=== PATIENT | male | born 1955 | race Hispanic/Latino ===

== ENCOUNTER 2022-11-20 01:16 | Emergency (ER) | payer MEDICARE ==
--- OUTSIDE RECORDS SUMMARY | 2022-11-20 01:29 | XMS REPORT | Continuity of Care Document ---
:1955 Author Organization [facility] t Address [address] [place] [address] Care Team Providers Name Role Phone Ann Roth MD Primary Care Physician VERONIQUE RIVAS Attending Clinician Unavailable ANN ROTH Attending Clinician Unavailable ANN ROTH Attending Clinician Unavailable Veronique Rivas PA-C Attending Clinician Doctor Unassigned, Gueydan Attending Clinician Unavailable KATYA WAY Attending Clinician Unavailable IVY_Sherrie Attending Clinician Unavailable Lab, Ang - Db Attending Clinician Unavailable Katya Lowry Attending Clinician Jah Quintanilla MD Attending Clinician Boni HERNANDEZ, Chirag Dixon Attending Clinician MIRNA KLEIN Attending Clinician Unavailable Mirna Klein MD Attending Clinician Pcp-Lab Attending Clinician Unavailable CHIRAG PLATA Attending Clinician Unavailable Rhoda Mata Attending Clinician Unavailable Emmy Mike MD Attending Clinician Therapy, [facility] Covid Infusion Attending Clinician Unavailable Pablo Dale MD Attending Clinician PABLO DALE Attending Clinician Unavailable Provider, [facility] Attending Clinician Unavailable Viet POULTRY TENDER, Shelly Attending Clinician SHELLY BOWSER Attending Clinician Unavailable HEBERT DAS Attending Clinician Unavailable Nurse, [facility] Pob Immunization Attending Clinician Unavailable Hebert Das DO Attending Clinician 2, [facility] Lab Attending Clinician Unavailable Lab, [facility] Fam Pob I Attending Clinician Unavailable EMMY MIKE Attending Clinician Unavailable YENY HODGE Attending Clinician Unavailable Kena Alvarenga MD Attending Clinician Unavailable Rigo Dallas MD Attending Clinician Nadia Clark Attending Clinician NADIA BRIZUELA Attending Clinician Unavailable JAH QUINTANILLA Attending Clinician Unavailable Stacia Washburn Attending Clinician Unavailable [facility], [facility] Sleep Lab Attending Clinician Unavailable Kaela Llanos Attending Clinician Tang Bernstein Danique Attending Clinician Unavailable VERONIQUE RIVAS Admitting Clinician Unavailable Krunal Admitting Clinician Unavailable CHIRAG PLATA Admitting Clinician Unavailable Rhoda Mata Admitting Clinician Unavailable Tang Bernstein Danique Admitting Clinician Unavailable Payers Payer Name Policy Type Policy Number Effective Date Expiration Date S malka RODRIGUEZ/WINSTON JOHN [id number] 2020 ADV CHOICE PPO 00:00:00 [facility] [id number] 2022 (MEDICARE 00:00:00 REPLACEMENT HMO) MEDICARE PART A \\T\\ [id number] 2008 B 00:00:00 PHYSICIAN TAMIKA [id number] 2020 00:00:00 [facility] [id number] Problems Condition Condition Condition Status Onset Resolution Last Treating Co mments Source Name Details Category Date Date Treatment Clinician Date Vitamin D Vitamin D Disease Active Uni vers deficiency deficiency 2-15 it y of 00:00: [place] 00 Medical Branch Hypomagnes Hypomagnes Disease Active U nivers emia emia 5-05 ity of 00:00: [place] [facility] Arthritis Arthritis Disease Active Uni vers of lumbar of lumbar 1-14 ity of spine spine 00:00: [place] 00 Medical Branch DDD DDD Disease Active Univers (degenerat (degenerat 1-14 it y of karan disc karan disc 00:00: [place] disease), disease), 00 Medi guido lumbar lumbar Branch Gastroesop Gastroesop Disease Active U nivers hageal hageal 9-04 ity of reflux reflux 00:00: [place] disease disease 00 Medical with with Branch esophagiti esophagiti s s Severe Severe Disease Active Univers obstructiv obstructiv 8-28 it y of e sleep e sleep 00:00: [place] apnea apnea 00 Medical Branch CKD CKD Disease Active Univers (chronic (chronic 8-21 ity of kidney kidney 00:00: [place] disease) disease) 00 Medica l Branch Acute on Acute on Disease Active Unive rs chronic chronic 8-21 ity of renal renal 00:00: [place] insufficie insufficie 00 Va dical ncy ncy Branch COPD COPD Disease Active Univers (chronic (chronic 8-19 ity of obstructiv obstructiv [place] e e 00 Medical pulmonary pulmonary Bran ch disease) disease) Cellulitis Cellulitis Disease Active U nivers 6-27 ity of 00:00: [place] 00 Medical Branch Swelling Swelling Disease Active Unive rs of both of both 6-26 ity of lower lower 00:00: [place] extremitie extremitie 00 Me dical s s Branch Obesity Obesity Disease Active Univers (BMI (BMI 6-26 ity of 30-39.9) 30-39.9) 00:00: [place] 00 Medical Branch Chronic Chronic Disease Active Univers diastolic diastolic 6-15 ity of heart heart 00:00: [place] failure failure 00 Medical Branch Coronary Coronary Disease Active Unive rs artery artery 6-15 ity of disease disease 00:00: [place] involving involving 00 Medi gu[place] Branch coronary coronary artery of artery of [place] heart heart without without angina angina pectoris pectoris Coronary Coronary Disease Active Overview: Un jan atheroscle atheroscle 6-15 Formattin ity of olivier aguayo 00:00: g of this [place] 00 note Medical might be Branch different from the original. s/p stents 2000 Dyslipidem Dyslipidem Disease Active U denae ia ia 6-15 ity of 00:00: [place] 00 Medical Branch Chronic Chronic Disease Active Univers anticoagul anticoagul 6-15 it y of ation ation 00:00: [place] 00 Medical Branch History of History of Disease Active U denae coronary coronary 6-15 ity of artery artery 00:00: [place] stent stent 00 Medical placement placement Bran ch PAF PAF Disease Active Univers (paroxysma (paroxysma 6-15 it y of l atrial l atrial 00:00: [place] fibrillati fibrillati 00 Me dical on) on) Branch Hydrops of Hydrops of Disease Active U denae gallbladde gallbladde 6-14 it y of r r 00:00: [place] 00 Medical Branch SIRS SIRS Disease Active Univers (systemic (systemic 6-14 ity of inflammato inflammato 00:00[place] ry ry 00 Medical response response Branch syndrome) syndrome) Anticoagul Anticoagul Disease Active U denae ated ated 3-14 ity of 00:00: [place] 00 Medical Branch Acute Acute Disease Active Univers exacerbati exacerbati 3-17 it y of on of CHF on of CHF 00:[place] (congestiv (congestiv 00 Me dical e heart e heart Branch failure) failure) Atrial Atrial Disease Active 2016-05 Univers fibrillati fibrillati 2-28 it y of on with on with 00:00: [place] RVR RVR 00 Medical Branch Therapeuti Therapeuti Disease Active 2016-05 U denae c drug c drug 1-22 ity of monitoring monitoring 00:00: [place] Gammopathy Gammopathy Disease Active 2016-05 U denae with with 1-22 ity of multiple M multiple M 00:00[place] spikes spikes 00 Medical Branch Chronic Chronic Disease Active 2016-05 Univers pain pain 1-22 ity of syndrome syndrome 00:00: [place] 00 Medical Branch Immunizati Immunizati Disease Active U nivers on on 12-07 ity of counseling counseling 00:00[place] At risk At risk Disease Active Univers for bone for bone 5-24 ity of density density 00:00: [place] loss loss 00 Medical Branch 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 Patient refuses GI/Gen Surg f/u. Helicobact Helicobact Disease Active U nivers er pylori er pylori 4-12 ity of (H. (H. 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 obstructio obstructio Patient n, n, refuses unspecifie unspecifie Gen Surg d d follow-up cholecysti cholecysti . tis acuity tis acuity Rheumatoid Rheumatoid Disease Active U nivers arthritis: arthritis: 3-28 it y of RF 637, RF 637, 00:00: [place] CCP 198, CCP 198, 00 Medica l ESR ESR Branch 53(08/2016) 53(08/2016) Allergic Allergic Disease Active Unive rs rhinitis, rhinitis, 3-08 ity of unspecifie unspecifie 00:00[place] d allergic d allergic 00 Me dical rhinitis rhinitis Branch trigger, trigger, unspecifie unspecifie d rhinitis d rhinitis seasonalit seasonalit y y Venous Venous Disease Active Univers stasis stasis 3-08 ity of dermatitis dermatitis 00:00[place] of both of both 00 Medical lower lower Branch extremitie extremitie s s Bilateral Bilateral Disease Active Overview: Univers lower lower 3-08 Formattin ity of extremity extremity 00:00: g of this [place] edema edema 00 note Medical might be Branch different from the original. declines Vascular surgery Hypothyroi Hypothyroi Disease Active Overview : Univers dism dism 5-13 Formattin ity of 00:00: g of this [place] 00 note Medical might be Branch different from the original. 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 Hyperlipid Hyperlipid Disease Active U nivers emia emia ity of [facility] Essential Essential Disease Active Uni vers hypertensi hypertensi it y of on on [facility] Myocardial Myocardial Disease Active U nivers infarction infarction it y of 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 Social History Social Habit Start Date Stop Date Quantity Comments Source History of Current smoker University of tobacco use [facility] Alcohol intake 2022-08-13 2022-08-13 Current University of 00:00:00 00:00:00 non-drinker of [facility] alcohol (finding) Branch Exposure to 2022-06-11 2022-06-21 Not sure University SARS-CoV-2 00:00:00 07:45:00 [place] Medical (event) Branch Tobacco use and 2022-01-06 2022-01-06 Smokeless tobacco Un iversity of exposure 00:00:00 00:00:[address] [facility] Tobacco Comment 2022-01-06 2022-01-06 quit >15 years Unive rsity of 00:00:00 00:00:[address] [facility] Sex [birth year] Universit y of 00:00:00 00:00:00 [facility] Smoking Status Start Date Stop Date Source Ex-smoker 2022-01-06 00:00:00 2022-01-06 00:00:00 [facility] of [facility] Medications Ordered Filled Start Stop Current Ordering Indication Dosage Frequency Signature Comments Components Source Medication Medication Date Date Medication? Clinician (SIG) Name Name metFORMIN Yes [id number] 500mg Take 1 U nivers 500 mg 5-15 tablet by ity of tablet 00:00: mouth 2 00 (two) Medical times Branch daily with meals. hydrOXYchlo Yes [id number] 400mg Take 2 Univers roQUINE 200 3-31 tablets by it y of mg tablet 00:00: mouth [place] 00 daily. Medical Branch predniSONE 2022- Yes [id number] 5mg Take 1 Univers 5 mg tablet 3-31 tablet by ity of 00:00: mouth [place] 00 daily. Medical Branch hydrOXYchlo Yes [id number] 400mg Take 2 Univers roQUINE 200 3-31 tablets by it y of mg tablet 00:00: mouth [place] 00 daily. Medical Branch predniSONE 2022-0 Yes [id number] 5mg Take 1 Univers 5 mg tablet 3-31 tablet by ity of 00:00: mouth [place] 00 daily. Medical Branch hydrOXYchlo Yes [id number] 400mg Take 2 Univers roQUINE 200 3-31 tablets by it y of mg tablet 00:00: mouth [place] 00 daily. Medical Branch predniSONE 2022- Yes [id number] 5mg Take 1 Univers 5 mg tablet 3-31 tablet by ity of 00:00: mouth [place] 00 daily. Medical Branch hydrOXYchlo 3-0 Yes [id number] 400mg Take 2 Univers roQUINE 200 3-31 tablets by it y of mg tablet 00:00: mouth [place] 00 daily. Medical Branch predniSONE 3-0 Yes [id number] 5mg Take 1 Univers 5 mg tablet 3-31 tablet by ity of 00:00: mouth [place] 00 daily. Medical Branch hydrOXYchlo 3-0 Yes [id number] 400mg Take 2 Univers roQUINE 200 3-31 tablets by it y of mg tablet 00:00: mouth [place] 00 daily. Medical Branch predniSONE 3-0 Yes [id number] 5mg Take 1 Univers 5 mg tablet 3-31 tablet by ity of 00:00: mouth [place] 00 daily. Medical Branch hydrOXYchlo 3-0 Yes [id number] 400mg Take 2 Univers roQUINE 200 3-31 tablets by it y of mg tablet 00:00: mouth [place] 00 daily. Medical Branch predniSONE 3-0 Yes [id number] 5mg Take 1 Univers 5 mg tablet 3-31 tablet by ity of 00:00: mouth [place] 00 daily. Medical Branch hydrOXYchlo 3-0 Yes [id number] 400mg Take 2 Univers roQUINE 200 3-31 tablets by it y of mg tablet 00:00: mouth [place] 00 daily. Medical Branch predniSONE 3-0 Yes [id number] 5mg Take 1 Univers 5 mg tablet 3-31 tablet by ity of 00:00: mouth [place] 00 daily. Medical Branch hydrOXYchlo 3-0 Yes [id number] 400mg Take 2 Univers roQUINE 200 3-31 tablets by it y of mg tablet 00:00: mouth [place] 00 daily. Medical Branch predniSONE 3-0 Yes [id number] 5mg Take 1 Univers 5 mg tablet 3-31 tablet by ity of 00:00: mouth [place] 00 daily. Medical Branch levothyroxi 3-0 Yes [id number] 200ug Take 1 Univers ne 200 mcg 2-07 tablet by ity of tablet 00:00: mouth [place] 00 every Medical morning. Branch levothyroxi 2022-0 Yes [id number] 75ug Take 1 Univers ne 75 mcg 2-07 tablet by ity o f tablet 00:00: mouth [place] 00 every Medical morning. Branch levothyroxi 2022-0 Yes [id number] 200ug Take 1 Univers ne 200 mcg 2-07 tablet by ity of tablet 00:00: mouth [place] 00 every Medical morning. Branch levothyroxi 2022-0 Yes [id number] 75ug Take 1 Univers ne 75 mcg 2-07 tablet by ity o f tablet 00:00: mouth [place] 00 every Medical morning. Branch levothyroxi 2022-0 Yes [id number] 200ug Take 1 Univers ne 200 mcg 2-07 tablet by ity of tablet 00:00: mouth [place] 00 every Medical morning. Branch levothyroxi 2022-0 Yes [id number] 75ug Take 1 Univers ne 75 mcg 2-07 tablet by ity o f tablet 00:00: mouth [place] 00 every Medical morning. Branch levothyroxi 2022-0 Yes [id number] 200ug Take 1 Univers ne 200 mcg 2-07 tablet by ity of tablet 00:00: mouth [place] 00 every Medical morning. Branch levothyroxi 2022-0 Yes [id number] 75ug Take 1 Univers ne 75 mcg 2-07 tablet by ity o f tablet 00:00: mouth [place] 00 every Medical morning. Branch levothyroxi 2022-0 Yes [id number] 200ug Take 1 Univers ne 200 mcg 2-07 tablet by ity of tablet 00:00: mouth [place] 00 every Medical morning. Branch levothyroxi 2022-0 Yes [id number] 75ug Take 1 Univers ne 75 mcg 2-07 tablet by ity o f tablet 00:00: mouth [place] 00 every Medical morning. Branch levothyroxi 2022-0 Yes [id number] 200ug Take 1 Univers ne 200 mcg 2-07 tablet by ity of tablet 00:00: mouth [place] 00 every Medical morning. Branch levothyroxi 2022-0 Yes [id number] 75ug Take 1 Univers ne 75 mcg 2-07 tablet by ity o f tablet 00:00: mouth [place] 00 every Medical morning. Branch levothyroxi 2022-0 Yes [id number] 200ug Take 1 Univers ne 200 mcg 2-07 tablet by ity of tablet 00:00: mouth [place] 00 every Medical morning. Branch levothyroxi 2022-0 Yes [id number] 75ug Take 1 Univers ne 75 mcg 2-07 tablet by ity o f tablet 00:00: mouth [place] 00 every Medical morning. Branch levothyroxi 2022-0 Yes [id number] 200ug Take 1 Univers ne 200 mcg 2-07 tablet by ity of tablet 00:00: mouth [place] 00 every Medical morning. Branch levothyroxi 2022-0 Yes [id number] 75ug Take 1 Univers ne 75 mcg 2-07 tablet by ity o f tablet 00:00: mouth [place] 00 every Medical morning. Branch levothyroxi 2022-0 Yes [id number] 200ug Take 1 Univers ne 200 mcg 2-07 tablet by ity of tablet 00:00: mouth [place] 00 every Medical morning. Branch levothyroxi 2022-0 Yes [id number] 75ug Take 1 Univers ne 75 mcg 2-07 tablet by ity o f tablet 00:00: mouth [place] 00 every Medical morning. Branch metFORMIN 2022-0 Yes [id number] 500mg Take 1 U nivers 500 mg 2-06 tablet by ity of tablet 00:00: mouth (two) Medical times Branch daily with meals. metFORMIN 2022-0 Yes [id number] 500mg Take 1 U nivers 500 mg 2-06 tablet by ity of tablet 00:00: mouth (two) Medical times Branch daily with meals. metFORMIN 2022-0 Yes [id number] 500mg Take 1 U nivers 500 mg 2-06 tablet by ity of tablet 00:00: mouth (two) Medical times Branch daily with meals. metFORMIN 2022-0 Yes [id number] 500mg Take 1 U nivers 500 mg 2-06 tablet by ity of tablet 00:00: mouth (two) Medical times Branch daily with meals. metFORMIN 2022-0 Yes [id number] 500mg Take 1 U nivers 500 mg 2-06 tablet by ity of tablet 00:00: mouth (two) Medical times Branch daily with meals. metFORMIN 2022-0 Yes [id number] 500mg Take 1 U nivers 500 mg 2-06 tablet by ity of tablet 00:00: mouth (two) Medical times Branch daily with meals. metFORMIN 2022-0 Yes [id number] 500mg Take 1 U nivers 500 mg 2-06 tablet by ity of tablet 00:00: mouth (two) Medical times Branch daily with meals. metFORMIN 2022-0 Yes [id number] 500mg Take 1 U nivers 500 mg 2-06 tablet by ity of tablet 00:00: mouth 2 00 (two) Medical times Branch daily with meals. metFORMIN 3-0 Yes [id number] 500mg Take 1 U nivers 500 mg 2-06 tablet by ity of tablet 00:00: mouth 2 00 (two) Medical times Branch daily with meals. metFORMIN 3-0 Yes [id number] 500mg Take 1 U nivers 500 mg 2-06 tablet by ity of tablet 00:00: mouth 2 00 (two) Medical times Branch daily with meals. metFORMIN 3-0 Yes [id number] 500mg Take 1 U nivers 500 mg 2-06 tablet by ity of tablet 00:00: mouth 2 00 (two) Medical times Branch daily with meals. metFORMIN 2022-0 2023- No [id number] 500mg Take 1 Univers 500 mg 2-06 05-15 tablet by ity of tablet 00:00: 00:00 mouth 2 [place] 00 :00 (two) Medical times Branch daily with meals. tamsulosin 2022-0 Yes [id number] .4mg Take 1 Univers 0.4 mg 24 1-11 capsule by ity of hr capsule 00:00: mouth [place] 00 daily. Medical Branch tamsulosin 2022-0 Yes [id number] .4mg Take 1 Univers 0.4 mg 24 1-11 capsule by ity of hr capsule 00:00: mouth [place] 00 daily. Medical Branch tamsulosin 2022-0 Yes [id number] .4mg Take 1 Univers 0.4 mg 24 1-11 capsule by ity of hr capsule 00:00: mouth [place] 00 daily. Medical Branch tamsulosin 2022-0 Yes [id number] .4mg Take 1 Univers 0.4 mg 24 1-11 capsule by ity of hr capsule 00:00: mouth [place] 00 daily. Medical Branch tamsulosin 2022-0 Yes [id number] .4mg Take 1 Univers 0.4 mg 24 1-11 capsule by ity of hr capsule 00:00: mouth [place] 00 daily. Medical Branch tamsulosin 2022-0 Yes [id number] .4mg Take 1 Univers 0.4 mg 24 1-11 capsule by ity of hr capsule 00:00: mouth [place] 00 daily. Medical Branch tamsulosin 2022-0 Yes [id number] .4mg Take 1 Univers 0.4 mg 24 1-11 capsule by ity of hr capsule 00:00: mouth [place] 00 daily. Medical Branch tamsulosin 2022-0 Yes [id number] .4mg Take 1 Univers 0.4 mg 24 1-11 capsule by ity of hr capsule 00:00: mouth [place] 00 daily. Medical Branch tamsulosin 2022-0 Yes [id number] .4mg Take 1 Univers 0.4 mg 24 1-11 capsule by ity of hr capsule 00:00: mouth [place] 00 daily. Medical Branch tamsulosin 2022-0 Yes [id number] .4mg Take 1 Univers 0.4 mg 24 1-11 capsule by ity of hr capsule 00:00: mouth [place] 00 daily. Medical Branch tamsulosin 2022-0 Yes [id number] .4mg Take 1 Univers 0.4 mg 24 1-11 capsule by ity of hr capsule 00:00: mouth [place] 00 daily. Medical Branch tamsulosin 2022-0 Yes [id number] .4mg Take 1 Univers 0.4 mg 24 1-11 capsule by ity of hr capsule 00:00: mouth [place] 00 daily. Medical Branch tamsulosin 2022-0 Yes [id number] .4mg Take 1 Univers 0.4 mg 24 1-11 capsule by ity of hr capsule 00:00: mouth [place] 00 daily. Medical Branch metFORMIN 2021-05 Yes [id number] 500mg Take 1 U nivers 500 mg 2-20 tablet by ity of tablet 00:00: mouth 2 00 (two) Medical times Branch daily with meals. metFORMIN 2021-05 Yes [id number] 500mg Take 1 U nivers 500 mg 2-20 tablet by ity of tablet 00:00: mouth 2 (two) Medical times Branch daily with meals. metFORMIN 2021-05 Yes [id number] 500mg Take 1 U nivers 500 mg 2-20 tablet by ity of tablet 00:00: mouth 2 00 (two) Medical times Branch daily with meals. metFORMIN 2021-05- No [id number] 500mg Take 1 Univers 500 mg 2-20 02-06 tablet by ity of tablet 00:00: 00:00 mouth 2 [place] 00 :00 (two) Medical times Branch daily with meals. metFORMIN 2021-05- No [id number] 500mg Take 1 Univers 500 mg 2-20 - tablet by ity of tablet 00:00: 00:00 mouth 2 [place] 00 :00 (two) Medical times Branch daily with meals. metFORMIN 2021-05- No [id number] 500mg Take 1 Univers 500 mg 2-20 - tablet by ity of tablet 00:00: 00:00 mouth 2 [place] 00 :00 (two) Medical times Branch daily with meals. linaGLIPtin 2021-05 Yes [id number] 5mg Take 1 Univers (TRADJENTA) 2-03 tablet by ity of 5 mg tablet 00:00: mouth [place] 00 daily. Medical Branch linaGLIPtin 2021-05 Yes [id number] 5mg Take 1 Univers (TRADJENTA) 2-03 tablet by ity of 5 mg tablet 00:00: mouth [place] 00 daily. Medical Branch linaGLIPtin 2021-05 Yes [id number] 5mg Take 1 Univers (TRADJENTA) 2-03 tablet by ity of 5 mg tablet 00:00: mouth [place] 00 daily. Medical Branch linaGLIPtin 2021-05 Yes [id number] 5mg Take 1 Univers (TRADJENTA) 2-03 tablet by ity of 5 mg tablet 00:00: mouth [place] 00 daily. Medical Branch linaGLIPtin 2021-05 Yes [id number] 5mg Take 1 Univers (TRADJENTA) 2-03 tablet by ity of 5 mg tablet 00:00: mouth [place] 00 daily. Medical Branch linaGLIPtin 2021-05 Yes [id number] 5mg Take 1 Univers (TRADJENTA) 2-03 tablet by ity of 5 mg tablet 00:00: mouth [place] 00 daily. Medical Branch linaGLIPtin 2021-05 Yes [id number] 5mg Take 1 Univers (TRADJENTA) 2-03 tablet by ity of 5 mg tablet 00:00: mouth [place] 00 daily. Medical Branch linaGLIPtin 2021-05 Yes [id number] 5mg Take 1 Univers (TRADJENTA) 2-03 tablet by ity of 5 mg tablet 00:00: mouth [place] 00 daily. Medical Branch linaGLIPtin 2021-05 Yes [id number] 5mg Take 1 Univers (TRADJENTA) 2-03 tablet by ity of 5 mg tablet 00:00: mouth [place] 00 daily. Medical Branch linaGLIPtin 2021-05 Yes [id number] 5mg Take 1 Univers (TRADJENTA) 2-03 tablet by ity of 5 mg tablet 00:00: mouth [place] 00 daily. Medical Branch linaGLIPtin 2021-05 Yes [id number] 5mg Take 1 Univers (TRADJENTA) 2-03 tablet by ity of 5 mg tablet 00:00: mouth [place] 00 daily. Medical Branch linaGLIPtin 2021-05 Yes [id number] 5mg Take 1 Univers (TRADJENTA) 2-03 tablet by ity of 5 mg tablet 00:00: mouth [place] 00 daily. Medical Branch linaGLIPtin 2021-05 Yes [id number] 5mg Take 1 Univers (TRADJENTA) 2-03 tablet by ity of 5 mg tablet 00:00: mouth [place] 00 daily. Medical Branch linaGLIPtin 2021-05 Yes [id number] 5mg Take 1 Univers (TRADJENTA) 2-03 tablet by ity of 5 mg tablet 00:00: mouth [place] 00 daily. Medical Branch linaGLIPtin 2021-05 Yes [id number] 5mg Take 1 Univers (TRADJENTA) 2-03 tablet by ity of 5 mg tablet 00:00: mouth [place] 00 daily. Medical Branch linaGLIPtin 2021-05 Yes [id number] 5mg Take 1 Univers (TRADJENTA) 2-03 tablet by ity of 5 mg tablet 00:00: mouth [place] 00 daily. Medical Branch linaGLIPtin 2021-05 Yes [id number] 5mg Take 1 Univers (TRADJENTA) 2-03 tablet by ity of 5 mg tablet 00:00: mouth [place] 00 daily. Medical Branch hydrOXYchlo 2021-05 Yes [id number] 300mg Take 1.5 Univers roQUINE 200 1-21 tablets by it y of mg tablet 00:00: mouth [place] 00 daily. Medical Branch levothyroxi 2021-05 Yes [id number] 300ug Take 1 Univers ne 1-21 tablet by ity of (SYNTHROID) 00:00: mouth [place] 300 mcg 00 daily. Medical tablet BRAND Branch MEDICALLY NECESSARY. hydrOXYchlo 2021-05 Yes [id number] 300mg Take 1.5 Univers roQUINE 200 1-21 tablets by it y of mg tablet 00:00: mouth [place] 00 daily. [facility] Branch levothyroxi 2021-05 Yes [id number] 300ug Take 1 [facility] ne 1-21 tablet by ity of (SYNTHROID) 00:00: mouth [place] 300 mcg 00 daily. Medical tablet BRAND Branch MEDICALLY NECESSARY. hydrOXYchlo 2021-05 Yes [id number] 300mg Take 1.5 [facility] roQUINE 200 1-21 tablets by it y of mg tablet 00:00: mouth [place] 00 daily. Medical [facility] levothyroxi 2021-05 Yes [id number] 300ug Take 1 [facility] ne 1-21 tablet by ity of (SYNTHROID) 00:00: mouth [place] 300 mcg 00 daily. Medical tablet BRAND [facility] MEDICALLY NECESSARY. hydrOXYchlo 2021-05 Yes [id number] 300mg Take 1.5 [facility] roQUINE 200 1-21 tablets by it y of mg tablet 00:00: mouth [place] 00 daily. Medical [facility] levothyroxi 2021-05 Yes [id number] 300ug Take 1 [facility] ne 1-21 tablet by ity of (SYNTHROID) 00:00: mouth [place] 300 mcg 00 daily. Medical tablet BRAND Branch MEDICALLY NECESSARY. hydrOXYchlo 2021-05 Yes [id number] 300mg Take 1.5 [facility] roQUINE 200 1-21 tablets by it y of mg tablet 00:00: mouth [place] 00 daily. Medical [facility] levothyroxi 2021-05 Yes [id number] 300ug Take 1 [facility] ne 1-21 tablet by ity of (SYNTHROID) 00:00: mouth [place] 300 mcg 00 daily. Medical tablet BRAND Branch MEDICALLY NECESSARY. hydrOXYchlo 2021-05 Yes [id number] 300mg Take 1.5 [facility] roQUINE 200 1-21 tablets by it y of mg tablet 00:00: mouth [place] 00 daily. Medical Branch levothyroxi 2021-05 Yes [id number] 300ug Take 1 [facility] ne 1-21 tablet by ity of (SYNTHROID) 00:00: mouth [place] 300 mcg 00 daily. Medical tablet BRAND Branch MEDICALLY NECESSARY. hydrOXYchlo 2021-05 Yes [id number] 300mg Take 1.5 [facility] roQUINE 200 1-21 tablets by it y of mg tablet 00:00: mouth [place] 00 daily. Medical [facility] levothyroxi 2021-05 Yes [id number] 300ug Take 1 [facility] ne 1-21 tablet by ity of (SYNTHROID) 00:00: mouth [place] 300 mcg 00 daily. Medical tablet BRAND [facility] MEDICALLY NECESSARY. hydrOXYchlo 2021-05 Yes [id number] 300mg Take 1.5 [facility] roQUINE 200 1-21 tablets by it y of mg tablet 00:00: mouth [place] 00 daily. Medical [facility] levothyroxi 2021-05 Yes [id number] 300ug Take 1 [facility] ne 1-21 tablet by ity of (SYNTHROID) 00:00: mouth [place] 300 mcg 00 daily. Medical tablet BRAND [facility] MEDICALLY NECESSARY. hydrOXYchlo 2021-05 Yes [id number] 300mg Take 1.5 [facility] roQUINE 200 1-21 tablets by it y of mg tablet 00:00: mouth [place] 00 daily. Medical [facility] levothyroxi 2021-05 Yes [id number] 300ug Take 1 [facility] ne 1-21 tablet by ity of (SYNTHROID) 00:00: mouth [place] 300 mcg 00 daily. Medical tablet BRAND [facility] MEDICALLY NECESSARY. hydrOXYchlo 2021-05 Yes [id number] 300mg Take 1.5 [facility] roQUINE 200 1-21 tablets by it y of mg tablet 00:00: mouth [place] 00 daily. Medical [facility] levothyroxi 2021-05 Yes [id number] 300ug Take 1 [facility] ne 1-21 tablet by ity of (SYNTHROID) 00:00: mouth [place] 300 mcg 00 daily. Medical tablet BRAND [facility] MEDICALLY NECESSARY. hydrOXYchlo 2021-05 Yes [id number] 300mg Take 1.5 [facility] roQUINE 200 1-21 tablets by it y of mg tablet 00:00: mouth [place] 00 daily. Medical [facility] levothyroxi 2021-05 Yes [id number] 300ug Take 1 [facility] ne 1-21 tablet by ity of (SYNTHROID) 00:00: mouth [place] 300 mcg 00 daily. Medical tablet BRAND Branch MEDICALLY NECESSARY. hydrOXYchlo 2021-05- No [id number] 300mg Take 1.5 [facility] roQUINE 200 1-21 03-31 tablets by i ty of mg tablet 00:00: 00:00 mouth [place] 00 :00 daily. Medical Branch hydrOXYchlo 2021-05- No [id number] 300mg Take 1.5 [facility] roQUINE 200 1-21 03-31 tablets by i ty of mg tablet 00:00: 00:00 mouth [place] 00 :00 daily. Medical Branch levothyroxi 2021-05- No [id number] 300ug Take 1 [facility] ne 1-21 02-07 tablet by ity of (SYNTHROID) 00:00: 00:00 mouth [place] 300 mcg 00 :00 daily. Medical tablet BRAND [facility] MEDICALLY NECESSARY. vitamin 2021-05- No 500ug Take 500 [facility] ers B-12 05-19 11-04 mcg by ity of (VITAMIN 15:34: 00:00 mouth [place] B-12) 500 31 :00 daily. Medical mcg tablet Branch vitamin 2021-05- No 500ug Take 500 [facility] ers B-12 05-19 11-04 mcg by ity of (VITAMIN 15:34: 00:00 mouth [place] B-12) 500 31 :00 daily. Medical mcg tablet Branch KCL 2021-05 Yes [id number] 20meq Take 1 [facility] rs (KLOR-CON 1-04 tablet by ity o f M20) 20 mEq 00:00: mouth 2 [place] tablet 00 (two) Medical times Branch daily. Blood-Gluco 2021-05 Yes [id number] Check [facility] se Meter 1-04 glucose ity of Kit 00:00: once daily [place] 00 before Medical breakfast; Branch Diagnosis code E11.9 blood sugar 2021-05 Yes [id number] Check [facility] diagnostic 1-04 glucose ity of (BLOOD 00:00: once daily [place] GLUCOSE 00 before Medical TEST) strip breakfast; Br anch Diagnosis code E11.9 amoxicillin 2021-05 Yes [id number] 1{tbl} Take 1 [facility] -clavulanat 1-04 tablet by ity of e 00:00: mouth 2 [place] (AUGMENTIN) 00 (two) Medical 875-125 mg times Branch per tablet daily. [facility] 2021-05 Yes [id number] 20meq Take 1 Un[facility] rs (KLOR-CON 1-04 tablet by ity o f M20) 20 mEq 00:00: mouth 2 [place] tablet 00 (two) Medical times Branch daily. Blood-Gluco 2021-05 Yes [id number] Check [facility] se Meter 1-04 glucose ity of Kit 00:00: once daily [place] 00 before Medical breakfast; Branch Diagnosis code E11.9 blood sugar 2021-05 Yes [id number] Check [facility] diagnostic 1-04 glucose ity of (BLOOD 00:00: once daily [place] GLUCOSE 00 before Medical TEST) strip breakfast; Br anch Diagnosis code E11.9 amoxicillin 2021-05 Yes [id number] 1{tbl} Take 1 [facility] -clavulanat 1-04 tablet by ity of e 00:00: mouth 2 [place] (AUGMENTIN) 00 (two) Medical 875-125 mg times Branch per tablet daily. KCL 2021-05 Yes [id number] 20meq Take 1 [facility] rs (KLOR-CON 1-04 tablet by ity o f M20) 20 mEq 00:00: mouth 2 [place] tablet 00 (two) Medical times Branch daily. Blood-Gluco 2021-05 Yes [id number] Check [facility] se Meter 1-04 glucose ity of Kit 00:00: once daily [place] 00 before Medical breakfast; Branch Diagnosis code E11.9 blood sugar 2021-05 Yes [id number] Check [facility] diagnostic 1-04 glucose ity of (BLOOD 00:00: once daily [place] GLUCOSE 00 before Medical TEST) strip breakfast; Br anch Diagnosis code E11.9 amoxicillin 2021-05 Yes [id number] 1{tbl} Take 1 [facility] -clavulanat 1-04 tablet by ity of e 00:00: mouth 2 [place] (AUGMENTIN) 00 (two) Medical 875-125 mg times Branch per tablet daily. KCL 2021-05 Yes [id number] 20meq Take 1 [facility] rs (KLOR-CON 1-04 tablet by ity o f M20) 20 mEq 00:00: mouth 2 [place] tablet 00 (two) Medical times Branch daily. Blood-Gluco 2021-05 Yes [id number] Check [facility] se Meter 1-04 glucose ity of Kit 00:00: once daily [place] 00 before Medical breakfast; Branch Diagnosis code E11.9 blood sugar 2021-05 Yes [id number] Check [facility] diagnostic 1-04 glucose ity of (BLOOD 00:00: once daily [place] GLUCOSE 00 before Medical TEST) strip breakfast; Br anch Diagnosis code E11.9 amoxicillin 2021-05 Yes [id number] 1{tbl} Take 1 [facility] -clavulanat 1-04 tablet by ity of e 00:00: mouth 2 [place] (AUGMENTIN) 00 (two) Medical 875-125 mg times Branch per tablet daily. KCL 2021-05 Yes [id number] 20meq Take 1 [facility] rs (KLOR-CON 1-04 tablet by ity o f M20) 20 mEq 00:00: mouth 2 [place] tablet 00 (two) Medical times Branch daily. Blood-Gluco 2021-05 Yes [id number] Check [facility] se Meter 1-04 glucose ity of Kit 00:00: once daily [place] 00 before Medical breakfast; Branch Diagnosis code E11.9 blood sugar 2021-05 Yes [id number] Check [facility] diagnostic 1-04 glucose ity of (BLOOD 00:00: once daily [place] GLUCOSE 00 before Medical TEST) strip breakfast; Br anch Diagnosis code E11.9 amoxicillin 2021-05 Yes [id number] 1{tbl} Take 1 [facility] -clavulanat 1-04 tablet by ity of e 00:00: mouth 2 [place] (AUGMENTIN) 00 (two) Medical 875-125 mg times Branch per tablet daily. KCL 2021-05 Yes [id number] 20meq Take 1 [facility] rs (KLOR-CON 1-04 tablet by ity o f M20) 20 mEq 00:00: mouth 2 [place] tablet 00 (two) Medical times Branch daily. Blood-Gluco 2021-05 Yes [id number] Check [facility] se Meter 1-04 glucose ity of Kit 00:00: once daily [place] 00 before Medical breakfast; Branch Diagnosis code E11.9 blood sugar 2021-05 Yes [id number] Check [facility] diagnostic 1-04 glucose ity of (BLOOD 00:00: once daily [place] GLUCOSE 00 before Medical TEST) strip breakfast; Br anch Diagnosis code E11.9 amoxicillin 2021-05 Yes [id number] 1{tbl} Take 1 [facility] -clavulanat 1-04 tablet by ity of e 00:00: mouth 2 [place] (AUGMENTIN) 00 (two) Medical 875-125 mg times Branch per tablet daily. KCL 2021-05 Yes [id number] 20meq Take 1 [facility] rs (KLOR-CON 1-04 tablet by ity o f M20) 20 mEq 00:00: mouth 2 [place] tablet 00 (two) Medical times Branch daily. Blood-Gluco 2021-05 Yes [id number] Check [facility] se Meter 1-04 glucose ity of Kit 00:00: once daily [place] 00 before Medical breakfast; Branch Diagnosis code E11.9 blood sugar 2021-05 Yes [id number] Check [facility] diagnostic 1-04 glucose ity of (BLOOD 00:00: once daily [place] GLUCOSE 00 before Medical TEST) strip breakfast; Br anch Diagnosis code E11.9 amoxicillin 2021-05 Yes [id number] 1{tbl} Take 1 [facility] -clavulanat 1-04 tablet by ity of e 00:00: mouth 2 [place] (AUGMENTIN) 00 (two) Medical 875-125 mg times Branch per tablet daily. KCL 2021-05 Yes [id number] 20meq Take 1 [facility] rs (KLOR-CON 1-04 tablet by ity o f M20) 20 mEq 00:00: mouth 2 [place] tablet 00 (two) Medical times Branch daily. Blood-Gluco 2021-05 Yes [id number] Check [facility] se Meter 1-04 glucose ity of Kit 00:00: once daily [place] 00 before Medical breakfast; Branch Diagnosis code E11.9 blood sugar 2021-05 Yes [id number] Check [facility] diagnostic 1-04 glucose ity of (BLOOD 00:00: once daily [place] GLUCOSE 00 before Medical TEST) strip breakfast; Br anch Diagnosis code E11.9 amoxicillin 2021-05 Yes [id number] 1{tbl} Take 1 [facility] -clavulanat 1-04 tablet by ity of e 00:00: mouth 2 [place] (AUGMENTIN) 00 (two) Medical 875-125 mg times Branch per tablet daily. KCL 2021-05 Yes [id number] 20meq Take 1 [facility] rs (KLOR-CON 1-04 tablet by ity o f M20) 20 mEq 00:00: mouth 2 [place] tablet 00 (two) Medical times Branch daily. Blood-Gluco 2021-05 Yes [id number] Check [facility] se Meter 1-04 glucose ity of Kit 00:00: once daily [place] 00 before Medical breakfast; Branch Diagnosis code E11.9 blood sugar 2021-05 Yes [id number] Check [facility] diagnostic 1-04 glucose ity of (BLOOD 00:00: once daily [place] GLUCOSE 00 before Medical TEST) strip breakfast; Br anch Diagnosis code E11.9 amoxicillin 2021-05 Yes [id number] 1{tbl} Take 1 [facility] -clavulanat 1-04 tablet by ity of e 00:00: mouth 2 [place] (AUGMENTIN) 00 (two) Medical 875-125 mg times Branch per tablet daily. KCL 2021-05 Yes [id number] 20meq Take 1 [facility] rs (KLOR-CON 1-04 tablet by ity o f M20) 20 mEq 00:00: mouth 2 [place] tablet 00 (two) Medical times Branch daily. Blood-Gluco 2021-05 Yes [id number] Check [facility] se Meter 1-04 glucose ity of Kit 00:00: once daily [place] 00 before Medical breakfast; Branch Diagnosis code E11.9 blood sugar 2021-05 Yes [id number] Check [facility] diagnostic 1-04 glucose ity of (BLOOD 00:00: once daily [place] GLUCOSE 00 before Medical TEST) strip breakfast; Br anch Diagnosis code E11.9 amoxicillin 2021-05 Yes [id number] 1{tbl} Take 1 [facility] -clavulanat 1-04 tablet by ity of e 00:00: mouth 2 [place] (AUGMENTIN) 00 (two) Medical 875-125 mg times Branch per tablet daily. KCL 2021-05 Yes [id number] 20meq Take 1 [facility] rs (KLOR-CON 1-04 tablet by ity o f M20) 20 mEq 00:00: mouth 2 [place] tablet 00 (two) Medical times Branch daily. Blood-Gluco 2021-05 Yes [id number] Check [facility] se Meter 1-04 glucose ity of Kit 00:00: once daily [place] 00 before Medical breakfast; Branch Diagnosis code E11.9 blood sugar 2021-05 Yes [id number] Check [facility] diagnostic 1-04 glucose ity of (BLOOD 00:00: once daily [place] GLUCOSE 00 before Medical TEST) strip breakfast; Br anch Diagnosis code E11.9 amoxicillin 2021-05 Yes [id number] 1{tbl} Take 1 [facility] -clavulanat 1-04 tablet by ity of e 00:00: mouth 2 [place] (AUGMENTIN) 00 (two) Medical 875-125 mg times Branch per tablet daily. KCL 2021-05 Yes [id number] 20meq Take 1 [facility] rs (KLOR-CON 1-04 tablet by ity o f M20) 20 mEq 00:00: mouth 2 [place] tablet 00 (two) Medical times Branch daily. Blood-Gluco 2021-05 Yes [id number] Check [facility] se Meter 1-04 glucose ity of Kit 00:00: once daily [place] 00 before Medical breakfast; Branch Diagnosis code E11.9 blood sugar 2021-05 Yes [id number] Check [facility] diagnostic 1-04 glucose ity of (BLOOD 00:00: once daily [place] GLUCOSE 00 before Medical TEST) strip breakfast; Br anch Diagnosis code E11.9 amoxicillin 2021-05 Yes [id number] 1{tbl} Take 1 [facility] -clavulanat 1-04 tablet by ity of e 00:00: mouth 2 [place] (AUGMENTIN) 00 (two) Medical 875-125 mg times Branch per tablet daily. KCL 2021-05 Yes [id number] 20meq Take 1 Un[facility] rs (KLOR-CON 1-04 tablet by ity o f M20) 20 mEq 00:00: mouth 2 [place] tablet 00 (two) Medical times Branch daily. Blood-Gluco 2021-05 Yes [id number] Check [facility] se Meter 1-04 glucose ity of Kit 00:00: once daily [place] 00 before Medical breakfast; Branch Diagnosis code E11.9 blood sugar 2021-05 Yes [id number] Check [facility] diagnostic 1-04 glucose ity of (BLOOD 00:00: once daily [place] GLUCOSE 00 before Medical TEST) strip breakfast; Br anch Diagnosis code E11.9 amoxicillin 2021-05 Yes [id number] 1{tbl} Take 1 [facility] -clavulanat 1-04 tablet by ity of e 00:00: mouth 2 [place] (AUGMENTIN) 00 (two) Medical 875-125 mg times Branch per tablet daily. KCL 2021-05 Yes [id number] 20meq Take 1 Un[facility] rs (KLOR-CON 1-04 tablet by ity o f M20) 20 mEq 00:00: mouth 2 [place] tablet 00 (two) Medical times Branch daily. Blood-Gluco 2021-05 Yes [id number] Check [facility] se Meter 1-04 glucose ity of Kit 00:00: once daily [place] 00 before Medical breakfast; Branch Diagnosis code E11.9 blood sugar 2021-05 Yes [id number] Check [facility] diagnostic 1-04 glucose ity of (BLOOD 00:00: once daily [place] GLUCOSE 00 before Medical TEST) strip breakfast; Br anch Diagnosis code E11.9 amoxicillin 2021-05 Yes [id number] 1{tbl} Take 1 [facility] -clavulanat 1-04 tablet by ity of e 00:00: mouth 2 [place] (AUGMENTIN) 00 (two) Medical 875-125 mg times Branch per tablet daily. KCL 2021-05 Yes [id number] 20meq Take 1 Un[facility] rs (KLOR-CON 1-04 tablet by ity o f M20) 20 mEq 00:00: mouth 2 [place] tablet 00 (two) Medical times Branch daily. Blood-Gluco 2021-05 Yes [id number] Check [facility] se Meter 1-04 glucose ity of Kit 00:00: once daily [place] 00 before Medical breakfast; Branch Diagnosis code E11.9 blood sugar 2021-05 Yes [id number] Check [facility] diagnostic 1-04 glucose ity of (BLOOD 00:00: once daily [place] GLUCOSE 00 before Medical TEST) strip breakfast; Br anch Diagnosis code E11.9 amoxicillin 2021-05 Yes [id number] 1{tbl} Take 1 [facility] -clavulanat 1-04 tablet by ity of e 00:00: mouth 2 [place] (AUGMENTIN) 00 (two) Medical 875-125 mg times Branch per tablet daily. KCL 2021-05 Yes [id number] 20meq Take 1 Un[facility] rs (KLOR-CON 1-04 tablet by ity o f M20) 20 mEq 00:00: mouth 2 [place] tablet 00 (two) Medical times Branch daily. Blood-Gluco 2021-05 Yes [id number] Check [facility] se Meter 1-04 glucose ity of Kit 00:00: once daily [place] 00 before Medical breakfast; Branch Diagnosis code E11.9 blood sugar 2021-05 Yes [id number] Check [facility] diagnostic 1-04 glucose ity of (BLOOD 00:00: once daily [place] GLUCOSE 00 before Medical TEST) strip breakfast; Br anch Diagnosis code E11.9 amoxicillin 2021-05 Yes [id number] 1{tbl} Take 1 [facility] -clavulanat 1-04 tablet by ity of e 00:00: mouth 2 [place] (AUGMENTIN) 00 (two) Medical 875-125 mg times Branch per tablet daily. KCL 2021-05 Yes [id number] 20meq Take 1 [facility] rs (KLOR-CON 1-04 tablet by ity o f M20) 20 mEq 00:00: mouth 2 [place] tablet 00 (two) Medical times Branch daily. Blood-Gluco 2021-05 Yes [id number] Check [facility] se Meter 1-04 glucose ity of Kit 00:00: once daily [place] 00 before Medical breakfast; Branch Diagnosis code E11.9 blood sugar 2021-05 Yes [id number] Check [facility] diagnostic 1-04 glucose ity of (BLOOD 00:00: once daily [place] GLUCOSE 00 before Medical TEST) strip breakfast; Br anch Diagnosis code E11.9 amoxicillin 2021-05 Yes [id number] 1{tbl} Take 1 [facility] -clavulanat 1-04 tablet by ity of e 00:00: mouth 2 [place] (AUGMENTIN) 00 (two) Medical 875-125 mg times Branch per tablet daily. KCL 2021-05 Yes [id number] 20meq Take 1 Un[facility] rs (KLOR-CON 1-04 tablet by ity o f M20) 20 mEq 00:00: mouth 2 [place] tablet 00 (two) Medical times Branch daily. Blood-Gluco 2021-05 Yes [id number] Check [facility] se Meter 1-04 glucose ity of Kit 00:00: once daily [place] 00 before Medical breakfast; Branch Diagnosis code E11.9 blood sugar 2021-05 Yes [id number] Check [facility] diagnostic 1-04 glucose ity of (BLOOD 00:00: once daily [place] GLUCOSE 00 before Medical TEST) strip breakfast; Br anch Diagnosis code E11.9 amoxicillin 2021-05 Yes [id number] 1{tbl} Take 1 [facility] -clavulanat 1-04 tablet by ity of e 00:00: mouth 2 [place] (AUGMENTIN) 00 (two) Medical 875-125 mg times Branch per tablet daily. KCL 2021-05 Yes [id number] 20meq Take 1 [facility] rs (KLOR-CON 1-04 tablet by ity o f M20) 20 mEq 00:00: mouth 2 [place] tablet 00 (two) Medical times Branch daily. Blood-Gluco 2021-05 Yes [id number] Check [facility] se Meter 1-04 glucose ity of Kit 00:00: once daily [place] 00 before Medical breakfast; Branch Diagnosis code E11.9 blood sugar 2021-05 Yes [id number] Check [facility] diagnostic 1-04 glucose ity of (BLOOD 00:00: once daily [place] GLUCOSE 00 before Medical TEST) strip breakfast; Br anch Diagnosis code E11.9 amoxicillin 2021-05 Yes [id number] 1{tbl} Take 1 [facility] -clavulanat 1-04 tablet by ity of e 00:00: mouth 2 [place] (AUGMENTIN) 00 (two) Medical 875-125 mg times Branch per tablet daily. KCL 2021-05 Yes [id number] 20meq Take 1 [facility] rs (KLOR-CON 1-04 tablet by ity o f M20) 20 mEq 00:00: mouth 2 [place] tablet 00 (two) Medical times Branch daily. Blood-Gluco 2021-05 Yes [id number] Check [facility] se Meter 1-04 glucose ity of Kit 00:00: once daily [place] 00 before Medical breakfast; Branch Diagnosis code E11.9 blood sugar 2021-05 Yes [id number] Check [facility] diagnostic 1-04 glucose ity of (BLOOD 00:00: once daily [place] GLUCOSE 00 before Medical TEST) strip breakfast; Br anch Diagnosis code E11.9 amoxicillin 2021-05 Yes [id number] 1{tbl} Take 1 [facility] -clavulanat 1-04 tablet by ity of e 00:00: mouth 2 [place] (AUGMENTIN) 00 (two) Medical 875-125 mg times Branch per tablet daily. KCL 2021-05 Yes [id number] 20meq Take 1 [facility] rs (KLOR-CON 1-04 tablet by ity o f M20) 20 mEq 00:00: mouth 2 [place] tablet 00 (two) Medical times Branch daily. Blood-Gluco 2021-05 Yes [id number] Check [facility] se Meter 1-04 glucose ity of Kit 00:00: once daily [place] 00 before Medical breakfast; Branch Diagnosis code E11.9 blood sugar 2021-05 Yes [id number] Check [facility] diagnostic 1-04 glucose ity of (BLOOD 00:00: once daily [place] GLUCOSE 00 before Medical TEST) strip breakfast; Br anch Diagnosis code E11.9 amoxicillin 2021-05 Yes [id number] 1{tbl} Take 1 [facility] -clavulanat 1-04 tablet by ity of e 00:00: mouth 2 [place] (AUGMENTIN) 00 (two) Medical 875-125 mg times Branch per tablet daily. KCL 2021-05 Yes [id number] 20meq Take 1 [facility] rs (KLOR-CON 1-04 tablet by ity o f M20) 20 mEq 00:00: mouth 2 [place] tablet 00 (two) Medical times Branch daily. Blood-Gluco 2021-05 Yes [id number] Check [facility] se Meter 1-04 glucose ity of Kit 00:00: once daily [place] 00 before Medical breakfast; Branch Diagnosis code E11.9 blood sugar 2021-05 Yes [id number] Check [facility] diagnostic 1-04 glucose ity of (BLOOD 00:00: once daily [place] GLUCOSE 00 before Medical TEST) strip breakfast; Br anch Diagnosis code E11.9 amoxicillin 2021-05 Yes [id number] 1{tbl} Take 1 [facility] -clavulanat 1-04 tablet by ity of e 00:00: mouth 2 [place] (AUGMENTIN) 00 (two) Medical 875-125 mg times Branch per tablet daily. KCL 2021-05 Yes [id number] 20meq Take 1 [facility] rs (KLOR-CON 1-04 tablet by ity o f M20) 20 mEq 00:00: mouth 2 [place] tablet 00 (two) Medical times Branch daily. Blood-Gluco 2021-05 Yes [id number] Check [facility] se Meter 1-04 glucose ity of Kit 00:00: once daily [place] 00 before Medical breakfast; Branch Diagnosis code E11.9 blood sugar 2021-05 Yes [id number] Check [facility] diagnostic 1-04 glucose ity of (BLOOD 00:00: once daily [place] GLUCOSE 00 before Medical TEST) strip breakfast; Br anch Diagnosis code E11.9 amoxicillin 2021-05 Yes [id number] 1{tbl} Take 1 [facility] -clavulanat 1-04 tablet by ity of e 00:00: mouth 2 [place] (AUGMENTIN) 00 (two) Medical 875-125 mg times Branch per tablet daily. predniSONE 2021-05 Yes [id number] 5mg Take 1 [facility] 5 mg tablet 0-27 tablet by ity of 00:00: mouth [place] 00 daily. Medical Branch predniSONE 2021-05 Yes [id number] 5mg Take 1 [facility] 5 mg tablet 0-27 tablet by ity of 00:00: mouth [place] 00 daily. Medical Branch predniSONE 2021-05 Yes [id number] 5mg Take 1 [facility] 5 mg tablet 0-27 tablet by ity of 00:00: mouth [place] 00 daily. Medical Branch predniSONE 2021-05 Yes [id number] 5mg Take 1 [facility] 5 mg tablet 0-27 tablet by ity of 00:00: mouth [place] 00 daily. Medical Branch predniSONE 2021-05 Yes [id number] 5mg Take 1 [facility] 5 mg tablet 0-27 tablet by ity of 00:00: mouth [place] 00 daily. [facility] Branch predniSONE 2021-05 Yes [id number] 5mg Take 1 [facility] 5 mg tablet 0-27 tablet by ity of 00:00: mouth [place] 00 daily. [facility] Branch predniSONE 2021-05 Yes [id number] 5mg Take 1 [facility] 5 mg tablet 0-27 tablet by ity of 00:00: mouth [place] 00 daily. Medical Branch predniSONE 2021-05 Yes [id number] 5mg Take 1 [facility] 5 mg tablet 0-27 tablet by ity of 00:00: mouth [place] 00 daily. Medical Branch predniSONE 2021-05 Yes [id number] 5mg Take 1 [facility] 5 mg tablet 0-27 tablet by ity of 00:00: mouth [place] 00 daily. Medical Branch predniSONE 2021-05 Yes [id number] 5mg Take 1 [facility] 5 mg tablet 0-27 tablet by ity of 00:00: mouth [place] 00 daily. Medical Branch predniSONE 2021-05 Yes [id number] 5mg Take 1 [facility] 5 mg tablet 0-27 tablet by ity of 00:00: mouth [place] 00 daily. Medical Branch predniSONE 2021-05 Yes [id number] 5mg Take 1 [facility] 5 mg tablet 0-27 tablet by ity of 00:00: mouth [place] 00 daily. Medical Branch predniSONE 2021-05 Yes [id number] 5mg Take 1 [facility] 5 mg tablet 0-27 tablet by ity of 00:00: mouth [place] 00 daily. Medical Branch predniSONE 2021-05 Yes [id number] 5mg Take 1 [facility] 5 mg tablet 0-27 tablet by ity of 00:00: mouth [place] 00 daily. Medical Branch predniSONE 2021-05 Yes [id number] 5mg Take 1 [facility] 5 mg tablet 0-27 tablet by ity of 00:00: mouth [place] 00 daily. Medical Branch predniSONE 2021-05 Yes [id number] 5mg Take 1 [facility] 5 mg tablet 0-27 tablet by ity of 00:00: mouth [place] 00 daily. Medical Branch predniSONE 2021-05 Yes [id number] 5mg Take 1 [facility] 5 mg tablet 0-27 tablet by ity of 00:00: mouth [place] 00 daily. Medical Branch predniSONE 2021-05 Yes [id number] 5mg Take 1 [facility] 5 mg tablet 0-27 tablet by ity of 00:00: mouth [place] 00 daily. Medical Branch predniSONE 2021-05- No [id number] 5mg Take 1 [facility] 5 mg tablet 0-27 03-31 tablet by it y of 00:00: 00:00 mouth [place] 00 :00 daily. Medical Branch predniSONE 2021-2022- No [id number] 5mg Take 1 [facility] 5 mg tablet 0-27 -31 tablet by it y of 00:00: 00:00 mouth [place] 00 :00 daily. Medical Branch metFORMIN 2-0 Yes [id number] 500mg Take 1 [facility] 500 mg 7-08 tablet by ity of tablet 00:00: mouth [place] (two) Medical times Branch daily with meals. metFORMIN 2022-0 Yes [id number] 500mg Take 1 [facility] n[facility] 500 mg 7-08 tablet by ity of tablet 00:00: mouth (two) Medical times Branch daily with meals. metFORMIN 2021-0 Yes [id number] 500mg Take 1 [facility] n[facility] 500 mg 7-08 tablet by ity of tablet 00:00: mouth [place] (two) Medical times Branch daily with meals. metFORMIN 2021-0 Yes [id number] 500mg Take 1 [facility] n[facility] 500 mg 7-08 tablet by ity of tablet 00:00: mouth [place] (two) Medical times Branch daily with meals. metFORMIN 2021-0 Yes [id number] 500mg Take 1 [facility] nivers 500 mg 7-08 tablet by ity of tablet 00:00: mouth (two) Medical times Branch daily with meals. metFORMIN 2021-0 Yes [id number] 500mg Take 1 U nivers 500 mg 7-08 tablet by ity of tablet 00:00: mouth [place] (two) Medical times Branch daily with meals. metFORMIN 2021-0 Yes [id number] 500mg Take 1 U nivers 500 mg 7-08 tablet by ity of tablet 00:00: mouth [place] (two) Medical times Branch daily with meals. metFORMIN 2-0 Yes [id number] 500mg Take 1 U nivers 500 mg 7-08 tablet by ity of tablet 00:00: mouth [place] (two) Medical times Branch daily with meals. metFORMIN 2022-0 Yes [id number] 500mg Take 1 U nivers 500 mg 7-08 tablet by ity of tablet 00:00: mouth [place] (two) Medical times Branch daily with meals. metFORMIN 2022-0 Yes [id number] 500mg Take 1 U nivers 500 mg 7-08 tablet by ity of tablet 00:00: mouth [place] (two) Medical times Branch daily with meals. metFORMIN 2022-0 Yes [id number] 500mg Take 1 [facility] nivers 500 mg 7-08 tablet by ity of tablet 00:00: mouth 2 (two) Medical times Branch daily with meals. metFORMIN Yes [id number] 500mg Take 1 [facility] nivers 500 mg 7-08 tablet by ity of tablet 00:00: mouth 2 (two) Medical times Branch daily with meals. metFORMIN 0 Yes [id number] 500mg Take 1 [facility] nivers 500 mg 7-08 tablet by ity of tablet 00:00: mouth 2 [place] (two) Medical times Branch daily with meals. metFORMIN 2021- No [id number] 500mg Take 1 [facility] 500 mg 7-08 12-20 tablet by ity of tablet 00:00: 00:00 mouth 2 [place] 00 :00 (two) Medical times Branch daily with meals. SULFASALAZI Yes [id number] TAKE 2 [facility] [place] 500 mg 5-09 TABLETS BY ity of EC tablet 00:00: MOUTH [place] 00 TWICE A Medical DAY Branch SULFASALAZI 2021-0 Yes [id number] TAKE 2 [facility] [place] 500 mg 5-09 TABLETS BY ity of EC tablet 00:00: MOUTH [place] 00 TWICE A Medical DAY Branch SULFASALAZI 2021-0 Yes [id number] TAKE 2 [facility] [place] 500 mg 5-09 TABLETS BY ity of EC tablet 00:00: MOUTH [place] 00 TWICE A Medical DAY Branch SULFASALAZI 2021-0 Yes [id number] TAKE 2 [facility] [place] 500 mg 5-09 TABLETS BY ity of EC tablet 00:00: MOUTH [place] 00 TWICE A Medical DAY Branch SULFASALAZI 2021-0 Yes [id number] TAKE 2 [facility] [place] 500 mg 5-09 TABLETS BY ity of EC tablet 00:00: MOUTH [place] 00 TWICE A Medical DAY Branch SULFASALAZI 2021-0 2- No [id number] TAKE 2 [facility] NE 500 mg 5-09 11-04 TABLETS BY ity of EC tablet 00:00: 00:00 MOUTH [place] 00 :00 TWICE A Medical DAY Branch SULFASALAZI 2021-0 2022- No [id number] TAKE 2 [facility] NE 500 mg 5-09 11-04 TABLETS BY ity of EC tablet 00:00: 00:00 MOUTH [place] 00 :00 TWICE A Medical DAY Branch predniSONE 2-0 Yes [id number] 5mg Take 1 [facility] 5 mg tablet 4-22 tablet by ity of 00:00: mouth [place] 00 daily. Medical Branch predniSONE 2021-0 Yes [id number] 5mg Take 1 [facility] 5 mg tablet 4-22 tablet by ity of 00:00: mouth [place] 00 daily. [facility] Branch predniSONE 2021-0 2021- No [id number] 5mg Take 1 [facility] 5 mg tablet 4-22 10-27 tablet by it y of 00:00: 00:00 mouth [place] 00 :00 daily. Medical Branch hydrOXYchlo 2021-0 Yes [id number] 300mg Take 1.5 [facility] roQUINE 200 4-19 tablets by it y of mg tablet 00:00: mouth [place] 00 daily. [facility] Branch hydrOXYchlo 2021-0 Yes [id number] 300mg Take 1.5 [facility] roQUINE 200 4-19 tablets by it y of mg tablet 00:00: mouth [place] 00 daily. Medical Branch hydrOXYchlo 2021-0 Yes [id number] 300mg Take 1.5 [facility] roQUINE 200 4-19 tablets by it y of mg tablet 00:00: mouth [place] 00 daily. Medical Branch hydrOXYchlo 2021-0 Yes [id number] 300mg Take 1.5 [facility] roQUINE 200 4-19 tablets by it y of mg tablet 00:00: mouth [place] 00 daily. Medical Branch hydrOXYchlo 2021-0 Yes [id number] 300mg Take 1.5 [facility] roQUINE 200 4-19 tablets by it y of mg tablet 00:00: mouth [place] 00 daily. Medical Branch hydrOXYchlo 2021-0 Yes [id number] 300mg Take 1.5 [facility] roQUINE 200 4-19 tablets by it y of mg tablet 00:00: mouth [place] 00 daily. Medical Branch hydrOXYchlo 2021-0 Yes [id number] 300mg Take 1.5 [facility] roQUINE 200 4-19 tablets by it y of mg tablet 00:00: mouth [place] 00 daily. Medical Branch hydrOXYchlo 2021-0 Yes [id number] 300mg Take 1.5 [facility] roQUINE 200 4-19 tablets by it y of mg tablet 00:00: mouth [place] 00 daily. [facility] Branch hydrOXYchlo 2021-0 Yes [id number] 300mg Take 1.5 [facility] roQUINE 200 4-19 tablets by it y of mg tablet 00:00: mouth [place] 00 daily. [facility] Branch hydrOXYchlo 2021-0 202- No [id number] 300mg Take 1.5 [facility] roQUINE 200 4-19 11-21 tablets by i ty of mg tablet 00:00: 00:00 mouth [place] 00 :00 daily. Medical Branch tamsulosin 0 Yes [id number] .4mg Take 1 [facility] 0.4 mg 24 3-28 capsule by ity of hr capsule 00:00: mouth [place] 00 daily. Medical Branch KCL 2021-0 Yes [id number] 20meq Take 1 Unive rs (KLOR-CON 3-28 tablet by ity o f M20) 20 mEq 00:00: mouth 2 [place] tablet 00 (two) Medical times Branch daily. tamsulosin 0 Yes [id number] .4mg Take 1 [facility] 0.4 mg 24 3-28 capsule by ity of hr capsule 00:00: mouth [place] 00 daily. Medical Branch KCL 0 Yes [id number] 20meq Take 1 [facility] rs (KLOR-CON 3-28 tablet by ity o f M20) 20 mEq 00:00: mouth 2 [place] tablet 00 (two) Medical times Branch daily. tamsulosin Yes [id number] .4mg Take 1 [facility] 0.4 mg 24 3-28 capsule by ity of hr capsule 00:00: mouth [place] 00 daily. Medical Branch KCL 2021-0 Yes [id number] 20meq Take 1 [facility] rs (KLOR-CON 3-28 tablet by ity o f M20) 20 mEq 00:00: mouth 2 [place] tablet 00 (two) Medical times Branch daily. tamsulosin 0 Yes [id number] .4mg Take 1 [facility] 0.4 mg 24 3-28 capsule by ity of hr capsule 00:00: mouth [place] 00 daily. Medical Branch KCL 2021-0 Yes [id number] 20meq Take 1 [facility] rs (KLOR-CON 3-28 tablet by ity o f M20) 20 mEq 00:00: mouth 2 [place] tablet 00 (two) Medical times Branch daily. tamsulosin 0 Yes [id number] .4mg Take 1 [facility] 0.4 mg 24 3-28 capsule by ity of hr capsule 00:00: mouth [place] 00 daily. Medical Branch KCL 2021-0 Yes [id number] 20meq Take 1 [facility] rs (KLOR-CON 3-28 tablet by ity o f M20) 20 mEq 00:00: mouth 2 [place] tablet 00 (two) Medical times Branch daily. tamsulosin 0 Yes [id number] .4mg Take 1 [facility] 0.4 mg 24 3-28 capsule by ity of hr capsule 00:00: mouth [place] 00 daily. Medical Branch tamsulosin 0 Yes [id number] .4mg Take 1 [facility] 0.4 mg 24 3-28 capsule by ity of hr capsule 00:00: mouth [place] 00 daily. Medical Branch tamsulosin Yes [id number] .4mg Take 1 [facility] 0.4 mg 24 3-28 capsule by ity of hr capsule 00:00: mouth [place] 00 daily. Medical Branch tamsulosin 0 Yes [id number] .4mg Take 1 [facility] 0.4 mg 24 3-28 capsule by ity of hr capsule 00:00: mouth [place] 00 daily. Medical Branch tamsulosin 0 Yes [id number] .4mg Take 1 [facility] 0.4 mg 24 3-28 capsule by ity of hr capsule 00:00: mouth [place] 00 daily. Medical Branch tamsulosin 0 Yes [id number] .4mg Take 1 [facility] 0.4 mg 24 3-28 capsule by ity of hr capsule 00:00: mouth [place] 00 daily. Medical Branch tamsulosin Yes [id number] .4mg Take 1 [facility] 0.4 mg 24 3-28 capsule by ity of hr capsule 00:00: mouth [place] 00 daily. Medical Branch tamsulosin 0 Yes [id number] .4mg Take 1 [facility] 0.4 mg 24 3-28 capsule by ity of hr capsule 00:00: mouth [place] 00 daily. Medical Branch tamsulosin 0 Yes [id number] .4mg Take 1 [facility] 0.4 mg 24 3-28 capsule by ity of hr capsule 00:00: mouth [place] 00 daily. Medical Branch tamsulosin 0 2022- No [id number] .4mg Take 1 [facility] 0.4 mg 24 3-28 01-10 capsule by ity of hr capsule 00:00: 16:54 mouth [place] 00 :49 daily. Medical Branch KCL 2021-2021- No [id number] 20meq Take 1 Univ ers (KLOR-CON 3-28 11-04 tablet by ity of M20) 20 mEq 00:00: 00:00 mouth 2 [place] tablet 00 :00 (two) Medical times [place] daily. KCL 0 2021- No [id number] 20meq Take 1 [facility] ers (KLOR-CON 3-28 11-04 tablet by ity of M20) 20 mEq 00:00: 00:00 mouth 2 [place] tablet 00 :00 (two) Medical times [place] daily. triamcinolo 0 Yes [id number] Apply to [facility] ne 3-18 area(s) 2 ity of acetonide 00:00: (two) [place] 0.1 % 00 times Medical ointment daily. Branch triamcinolo 0 Yes [id number] Apply to [facility] ne 3-18 area(s) 2 ity of acetonide 00:00: (two) [place] 0.1 % 00 times Medical ointment daily. Branch triamcinolo 0 Yes [id number] Apply to [facility] ne 3-18 area(s) 2 ity of acetonide 00:00: (two) [place] 0.1 % 00 times Medical ointment daily. Branch triamcinolo 0 Yes [id number] Apply to [facility] ne 3-18 area(s) 2 ity of acetonide 00:00: (two) [place] 0.1 % 00 times Medical ointment daily. Branch triamcinolo 2021-0 Yes [id number] Apply to [facility] ne 3-18 area(s) 2 ity of acetonide 00:00: (two) [place] 0.1 % 00 times Medical ointment daily. Branch triamcinolo 0 2021- No [id number] Apply to [facility] ne 3-18 11-04 area(s) 2 ity of acetonide 00:00: 00:00 (two) [place] 0.1 % 00 :00 times Medical ointment daily. Branch triamcinolo 0 2021- No [id number] Apply to [facility] ne 3-18 11-04 area(s) 2 ity of acetonide 00:00: 00:00 (two) [place] 0.1 % 00 :00 times Medical ointment daily. Branch ergocalcife 2021-0 Yes [id number] Take 1 [facility] rol, 2-15 capsule by ity of vitamin d2, 00:00: mouth [place] 1,250 mcg 00 weekly. Medical (50,000 Take with Branch unit) food. capsule ergocalcife 2021-0 Yes [id number] [id number] Take 1 [facility] rol, 2-15 capsule by ity of vitamin d2, 00:00: mouth [place] 1,250 mcg 00 weekly. Medical (50,000 Take with Branch unit) food. capsule ergocalcife 2021-0 Yes [id number] Take 1 [facility] rol, 2-15 capsule by ity of vitamin d2, 00:00: mouth [place] 1,250 mcg 00 weekly. Medical (50,000 Take with Branch unit) food. capsule ergocalcife 2021-0 Yes [id number] Take 1 [facility] rol, 2-15 capsule by ity of vitamin d2, 00:00: mouth [place] 1,250 mcg 00 weekly. Medical (50,000 Take with Branch unit) food. capsule ergocalcife 0 Yes [id number] [id number] Take 1 [facility] rol, 2-15 capsule by ity of vitamin d2, 00:00: mouth [place] 1,250 mcg 00 weekly. Medical (50,000 Take with Branch unit) food. capsule ergocalcife 0 2021- No [id number] Take 1 [facility] rol, 2-15 11-04 capsule by ity of vitamin d2, 00:00: 00:00 mouth [place] 1,250 mcg 00 :00 weekly. Medical (50,000 Take with Branch unit) food. capsule ergocalcife 0 2021- No [id number] Take 1 [facility] rol, 2-15 11-04 capsule by ity of vitamin d2, 00:00: 00:00 mouth [place] 1,250 mcg 00 :00 weekly. Medical (50,000 Take with Branch unit) food. capsule glimepiride 0 Yes [id number] 4mg Take 1 [facility] 4 mg tablet 2-10 tablet by ity of 00:00: mouth [place] 00 daily with Medical breakfast. Branch levothyroxi 0 Yes [id number] 300ug Take 1 [facility] ne 2-10 tablet by ity of (SYNTHROID) 00:00: mouth [place] 300 mcg 00 daily. Medical tablet BRAND Branch MEDICALLY NECESSARY. linaGLIPtin 2-0 Yes [id number] 5mg Take 1 [facility] (TRADJENTA) 2-10 tablet by ity of 5 mg tablet 00:00: mouth [place] 00 daily. Medical Branch glimepiride 2021-0 Yes [id number] 4mg Take 1 [facility] 4 mg tablet 2-10 tablet by ity of 00:00: mouth [place] 00 daily with Medical breakfast. Branch levothyroxi 2021-0 Yes [id number] 300ug Take 1 [facility] ne 2-10 tablet by ity of (SYNTHROID) 00:00: mouth [place] 300 mcg 00 daily. Medical tablet BRAND Branch MEDICALLY NECESSARY. linaGLIPtin 2021-0 Yes [id number] 5mg Take 1 [facility] (TRADJENTA) 2-10 tablet by ity of 5 mg tablet 00:00: mouth [place] 00 daily. Medical Branch glimepiride 2021-0 Yes [id number] 4mg Take 1 [facility] 4 mg tablet 2-10 tablet by ity of 00:00: mouth [place] 00 daily with Medical breakfast. Branch levothyroxi 2021-0 Yes [id number] 300ug Take 1 [facility] ne 2-10 tablet by ity of (SYNTHROID) 00:00: mouth [place] 300 mcg 00 daily. Medical tablet BRAND Branch MEDICALLY NECESSARY. linaGLIPtin 2021-0 Yes [id number] 5mg Take 1 [facility] (TRADJENTA) 2-10 tablet by ity of 5 mg tablet 00:00: mouth [place] 00 daily. Medical Branch glimepiride 2021-0 Yes [id number] 4mg Take 1 [facility] 4 mg tablet 2-10 tablet by ity of 00:00: mouth [place] 00 daily with Medical breakfast. Branch levothyroxi 2021-0 Yes [id number] 300ug Take 1 [facility] ne 2-10 tablet by ity of (SYNTHROID) 00:00: mouth [place] 300 mcg 00 daily. Medical tablet BRAND Branch MEDICALLY NECESSARY. linaGLIPtin 2-0 Yes [id number] 5mg Take 1 [facility] (TRADJENTA) 2-10 tablet by ity of 5 mg tablet 00:00: mouth [place] 00 daily. Medical Branch glimepiride 2-0 Yes [id number] 4mg Take 1 [facility] 4 mg tablet 2-10 tablet by ity of 00:00: mouth [place] 00 daily with Medical breakfast. Branch levothyroxi 2021-0 Yes [id number] 300ug Take 1 [facility] ne 2-10 tablet by ity of (SYNTHROID) 00:00: mouth [place] 300 mcg 00 daily. Medical tablet BRAND Branch MEDICALLY NECESSARY. linaGLIPtin 2021-0 Yes [id number] 5mg Take 1 [facility] (TRADJENTA) 2-10 tablet by ity of 5 mg tablet 00:00: mouth [place] 00 daily. Medical Branch levothyroxi 0 Yes [id number] 300ug Take 1 [facility] ne 2-10 tablet by ity of (SYNTHROID) 00:00: mouth [place] 300 mcg 00 daily. Medical tablet BRAND Branch MEDICALLY NECESSARY. linaGLIPtin 2021-0 Yes [id number] 5mg Take 1 [facility] (TRADJENTA) 2-10 tablet by ity of 5 mg tablet 00:00: mouth [place] 00 daily. Medical Branch levothyroxi 2021-0 Yes [id number] 300ug Take 1 [facility] ne 2-10 tablet by ity of (SYNTHROID) 00:00: mouth [place] 300 mcg 00 daily. Medical tablet BRAND Branch MEDICALLY NECESSARY. linaGLIPtin 0 Yes [id number] 5mg Take 1 [facility] (TRADJENTA) 2-10 tablet by ity of 5 mg tablet 00:00: mouth [place] 00 daily. Medical Branch levothyroxi 0 Yes [id number] 300ug Take 1 [facility] ne 2-10 tablet by ity of (SYNTHROID) 00:00: mouth [place] 300 mcg 00 daily. Medical tablet BRAND Branch MEDICALLY NECESSARY. linaGLIPtin 2021-0 Yes [id number] 5mg Take 1 [facility] (TRADJENTA) 2-10 tablet by ity of 5 mg tablet 00:00: mouth [place] 00 daily. Medical Branch linaGLIPtin 2021-0 Yes [id number] 5mg Take 1 [facility] (TRADJENTA) 2-10 tablet by ity of 5 mg tablet 00:00: mouth [place] 00 daily. Medical Branch linaGLIPtin 2021-0 Yes [id number] 5mg Take 1 [facility] (TRADJENTA) 2-10 tablet by ity of 5 mg tablet 00:00: mouth [place] 00 daily. Medical Branch linaGLIPtin 2021-0 2022- No [id number] 5mg Take 1 [facility] (TRADJENTA) 2-10 12-01 tablet by it y of 5 mg tablet 00:00: 00:00 mouth [place] 00 :00 daily. Medical Branch levothyroxi 2021- No [id number] 300ug Take 1 [facility] ne 06-25 tablet by ity of (SYNTHROID) 00:00: 00:00 mouth [place] 300 mcg 00 :00 daily. Medical tablet BRAND Branch MEDICALLY NECESSARY. glimepiride 2021- No [id number] 4mg Take 1 [facility] 4 mg tablet 06-25 tablet by it y of 00:00: 00:00 mouth [place] 00 :00 daily with Medical breakfast. Branch glimepiride 2021- No [id number] 4mg Take 1 [facility] 4 mg tablet 06-25 tablet by it y of 00:00: 00:00 mouth [place] 00 :00 daily with Medical breakfast. Branch clopidogrel Yes 75mg Take 75 mg Univers (PLAVIX) 75 9-25 by mouth ity of mg tablet 20:13: daily. [place] [address] Medical Branch atorvastati Yes 80mg Take 80 mg Univers n (LIPITOR) 9-25 by mouth ity of 80 mg 20:13: at [place] tablet 49 bedtime. Medical Branch vitamin Yes 500ug Take 500 Unive rs B-12 9-25 mcg by ity of (VITAMIN 20:13: mouth [place] B-12) 500 49 daily. Medical mcg tablet Branch metoprolol Yes 100mg Take 100 Un jan tartrate 9-25 mg by ity of 100 mg 20:13: mouth 2 [place] tablet 49 (two) Medical times Branch daily. TYLENOL Yes 1 daily [facility] ARTHRITIS 9-25 ity of ORAL 20:13: [place] [address] Medical Branch clopidogrel 0 Yes 75mg Take 75 mg Univers (PLAVIX) 75 9-25 by mouth ity of mg tablet 20:13: daily. [place] [address] Medical Branch atorvastati 0 Yes 80mg Take 80 mg Univers n (LIPITOR) 9-25 by mouth ity of 80 mg 20:13: at [place] tablet 49 bedtime. Medical Branch vitamin 0 Yes 500ug Take 500 Unive rs B-12 9-25 mcg by ity of (VITAMIN 20:13: mouth [place] B-12) 500 49 daily. Medical [facility] Branch metoprolol 0 Yes 100mg Take 100 Un jan tartrate 9-25 mg by ity of 100 mg 20:13: mouth 2 [place] tablet 49 (two) Medical times Branch daily. TYLENOL 2020-0 Yes 1 daily [facility] ARTHRITIS 9-25 ity of ORAL 20:13: [place] [address] Medical Branch clopidogrel 0 Yes 75mg Take 75 mg [facility] (PLAVIX) 75 9-25 by mouth ity of mg tablet 20:13: daily. [place] [address] Medical Branch atorvastati 0 Yes 80mg Take 80 mg [facility] n (LIPITOR) 9-25 by mouth ity of 80 mg 20:13: at [place] tablet 49 bedtime. Medical Branch metoprolol 0 Yes 100mg Take 100 Un jan tartrate 9-25 mg by ity of 100 mg 20:13: mouth 2 [place] tablet 49 (two) Medical times Branch daily. TYLENOL 2020-0 Yes 1 daily [facility] ARTHRITIS 9-25 ity of ORAL 20:13: [place] [address] Medical Branch clopidogrel 0 Yes 75mg Take 75 mg [facility] (PLAVIX) 75 9-25 by mouth ity of mg tablet 20:13: daily. [place] [address] Medical Branch atorvastati 0 Yes 80mg Take 80 mg [facility] n (LIPITOR) 9-25 by mouth ity of 80 mg 20:13: at [place] tablet 49 bedtime. Medical Branch metoprolol 0 Yes 100mg Take 100 Un jan tartrate 9-25 mg by ity of 100 mg 20:13: mouth 2 [place] tablet 49 (two) Medical times Branch daily. TYLENOL 2020-0 Yes 1 daily [facility] ARTHRITIS 9-25 ity of ORAL 20:13: [place] [address] Medical Branch clopidogrel 2020-0 Yes 75mg Take 75 mg [facility] (PLAVIX) 75 9-25 by mouth ity of mg tablet 20:13: daily. [place] [address] Medical Branch atorvastati 0 Yes 80mg Take 80 mg [facility] n (LIPITOR) 9-25 by mouth ity of 80 mg 20:13: at [place] tablet 49 bedtime. Medical Branch metoprolol 2020-0 Yes 100mg Take 100 Un jan tartrate 9-25 mg by ity of 100 mg 20:13: mouth 2 [place] tablet 49 (two) Medical times Branch daily. TYLENOL 2020-0 Yes 1 daily [facility] ARTHRITIS 9-25 ity of ORAL 20:13: [address] Branch clopidogrel 0 Yes 75mg Take 75 mg [facility] (PLAVIX) 75 9-25 by mouth ity of mg tablet 20:13: daily. [address] Branch atorvastati 0 Yes 80mg Take 80 mg [facility] n (LIPITOR) 9-25 by mouth ity of 80 mg 20:13: at [place] tablet 49 bedtime. Medical Branch metoprolol 2020-0 Yes 100mg Take 100 Un jan tartrate 9-25 mg by ity of 100 mg 20:13: mouth 2 [place] tablet 49 (two) Medical times Branch daily. TYLENOL 2020-0 Yes 1 daily [facility] ARTHRITIS 9-25 ity of ORAL 20:13: [address] clopidogrel 2020-0 Yes 75mg Take 75 mg [facility] (PLAVIX) 75 9-25 by mouth ity of mg tablet 20:13: daily. [address] Branch atorvastati 0 Yes 80mg Take 80 mg Univers n (LIPITOR) 9-25 by mouth ity of 80 mg 20:13: at [place] tablet 49 bedtime. Medical Branch metoprolol 2020-0 Yes 100mg Take 100 Un jan tartrate 9-25 mg by ity of 100 mg 20:13: mouth 2 [place] tablet 49 (two) Medical times Branch daily. TYLENOL 2020-0 Yes 1 daily [facility] ARTHRITIS 9-25 ity of ORAL 20:13: [address] clopidogrel 0 Yes 75mg Take 75 mg [facility] (PLAVIX) 75 9-25 by mouth ity of mg tablet 20:13: daily. [place] [address] Medical Branch atorvastati 0 Yes 80mg Take 80 mg [facility] n (LIPITOR) 9-25 by mouth ity of 80 mg 20:13: at [place] tablet 49 bedtime. Medical Branch metoprolol 2020-0 Yes 100mg Take 100 Un jan tartrate 9-25 mg by ity of 100 mg 20:13: mouth 2 [place] tablet 49 (two) Medical times Branch daily. TYLENOL 2020-0 Yes 1 daily [facility] ARTHRITIS 9-25 ity of ORAL 20:13: [address] Branch clopidogrel 2020-0 Yes 75mg Take 75 mg Univers (PLAVIX) 75 9-25 by mouth ity of mg tablet 20:13: daily. [place] [address] Medical Branch atorvastati Yes 80mg Take 80 mg [facility] n (LIPITOR) 9-25 by mouth ity of 80 mg 20:13: at [place] tablet 49 bedtime. Medical Branch metoprolol 0 Yes 100mg Take 100 Un jan tartrate 9-25 mg by ity of 100 mg 20:13: mouth 2 [place] tablet 49 (two) Medical times Branch daily. TYLENOL 0 Yes 1 daily [facility] ARTHRITIS 9-25 ity of ORAL 20:13: [address] Branch clopidogrel 0 Yes 75mg Take 75 mg Univers (PLAVIX) 75 9-25 by mouth ity of mg tablet 20:13: daily. [place] [address] Medical Branch atorvastati Yes 80mg Take 80 mg Univers n (LIPITOR) 9-25 by mouth ity of 80 mg 20:13: at [place] tablet 49 bedtime. Medical Branch metoprolol 0 Yes 100mg Take 100 Un jan tartrate 9-25 mg by ity of 100 mg 20:13: mouth 2 [place] tablet 49 (two) Medical times Branch daily. TYLENOL 2020-0 Yes 1 daily [facility] ARTHRITIS 9-25 ity of ORAL 20:13: [address] Branch clopidogrel 0 Yes 75mg Take 75 mg Univers (PLAVIX) 75 9-25 by mouth ity of mg tablet 20:13: daily. [place] [address] Medical Branch atorvastati Yes 80mg Take 80 mg [facility] n (LIPITOR) 9-25 by mouth ity of 80 mg 20:13: at [place] tablet 49 bedtime. Medical Branch metoprolol 0 Yes 100mg Take 100 Un jan tartrate 9-25 mg by ity of 100 mg 20:13: mouth 2 [place] tablet 49 (two) Medical times Branch daily. TYLENOL 2020-0 Yes 1 daily [facility] ARTHRITIS 9-25 ity of ORAL 20:13: [address] Branch clopidogrel 2020-0 Yes 75mg Take 75 mg [facility] (PLAVIX) 75 9-25 by mouth ity of mg tablet 20:13: daily. [address] Branch atorvastati 0 Yes 80mg Take 80 mg Univers n (LIPITOR) 9-25 by mouth ity of 80 mg 20:13: at [place] tablet 49 bedtime. Medical Branch metoprolol 0 Yes 100mg Take 100 Un jan tartrate 9-25 mg by ity of 100 mg 20:13: mouth 2 [place] tablet 49 (two) Medical times Branch daily. TYLENOL 2020-0 Yes 1 daily [facility] ARTHRITIS 9-25 ity of ORAL 20:13: [place] [address] Medical Branch clopidogrel 0 Yes 75mg Take 75 mg [facility] (PLAVIX) 75 9-25 by mouth ity of mg tablet 20:13: daily. [place] [address] Medical Branch atorvastati 0 Yes 80mg Take 80 mg [facility] n (LIPITOR) 9-25 by mouth ity of 80 mg 20:13: at [place] tablet 49 bedtime. Medical Branch metoprolol 0 Yes 100mg Take 100 Un jan tartrate 9-25 mg by ity of 100 mg 20:13: mouth 2 [place] tablet 49 (two) Medical times Branch daily. TYLENOL 2020-0 Yes 1 daily [facility] ARTHRITIS 9-25 ity of ORAL 20:13: [place] [address] Medical Branch clopidogrel 0 Yes 75mg Take 75 mg [facility] (PLAVIX) 75 9-25 by mouth ity of mg tablet 20:13: daily. [place] [address] Medical Branch atorvastati 0 Yes 80mg Take 80 mg [facility] n (LIPITOR) 9-25 by mouth ity of 80 mg 20:13: at [place] tablet 49 bedtime. Medical Branch metoprolol 0 Yes 100mg Take 100 Un jan tartrate 9-25 mg by ity of 100 mg 20:13: mouth 2 [place] tablet 49 (two) Medical times Branch daily. TYLENOL 2020-0 Yes 1 daily [facility] ARTHRITIS 9-25 ity of ORAL 20:13: [place] [address] Medical Branch clopidogrel 0 Yes 75mg Take 75 mg Univers (PLAVIX) 75 9-25 by mouth ity of mg tablet 20:13: daily. [place] [address] Medical Branch atorvastati 0 Yes 80mg Take 80 mg [facility] n (LIPITOR) 9-25 by mouth ity of 80 mg 20:13: at [place] tablet 49 bedtime. Medical Branch metoprolol 2020-0 Yes 100mg Take 100 Un jan tartrate 9-25 mg by ity of 100 mg 20:13: mouth 2 [place] tablet 49 (two) Medical times Branch daily. TYLENOL 2020-0 Yes 1 daily Univers ARTHRITIS 9-25 ity of ORAL 20:13: [address] Branch clopidogrel 0 Yes 75mg Take 75 mg Univers (PLAVIX) 75 9-25 by mouth ity of mg tablet 20:13: daily. [address] Branch atorvastati 0 Yes 80mg Take 80 mg Univers n (LIPITOR) 9-25 by mouth ity of 80 mg 20:13: at [place] tablet 49 bedtime. Medical Branch metoprolol 2020-0 Yes 100mg Take 100 Un jan tartrate 9-25 mg by ity of 100 mg 20:13: mouth 2 [place] tablet 49 (two) Medical times Branch daily. TYLENOL 2020-0 Yes 1 daily Univers ARTHRITIS 9-25 ity of ORAL 20:13: [address] clopidogrel 2020-0 Yes 75mg Take 75 mg Univers (PLAVIX) 75 9-25 by mouth ity of mg tablet 20:13: daily. [address] Branch atorvastati 0 Yes 80mg Take 80 mg Univers n (LIPITOR) 9-25 by mouth ity of 80 mg 20:13: at [place] tablet 49 bedtime. Medical Branch metoprolol 2020-0 Yes 100mg Take 100 Un jan tartrate 9-25 mg by ity of 100 mg 20:13: mouth 2 [place] tablet 49 (two) Medical times Branch daily. TYLENOL 2020-0 Yes 1 daily Univers ARTHRITIS 9-25 ity of ORAL 20:13: [address] clopidogrel 0 Yes 75mg Take 75 mg Univers (PLAVIX) 75 9-25 by mouth ity of mg tablet 20:13: daily. [place] [address] Medical Branch atorvastati 0 Yes 80mg Take 80 mg Univers n (LIPITOR) 9-25 by mouth ity of 80 mg 20:13: at [place] tablet 49 bedtime. Medical Branch metoprolol 2020-0 Yes 100mg Take 100 Un jan tartrate 9-25 mg by ity of 100 mg 20:13: mouth 2 [place] tablet 49 (two) Medical times Branch daily. TYLENOL 2020-0 Yes 1 daily Univers ARTHRITIS 9-25 ity of ORAL 20:13: [address] Branch clopidogrel 2020-0 Yes 75mg Take 75 mg Univers (PLAVIX) 75 9-25 by mouth ity of mg tablet 20:13: daily. [place] [address] Medical Branch atorvastati Yes 80mg Take 80 mg Univers n (LIPITOR) 9-25 by mouth ity of 80 mg 20:13: at [place] tablet 49 bedtime. Medical Branch metoprolol 0 Yes 100mg Take 100 Un jan tartrate 9-25 mg by ity of 100 mg 20:13: mouth 2 [place] tablet 49 (two) Medical times Branch daily. TYLENOL 0 Yes 1 daily [facility] ARTHRITIS 9-25 ity of ORAL 20:13: [address] Branch clopidogrel 0 Yes 75mg Take 75 mg Univers (PLAVIX) 75 9-25 by mouth ity of mg tablet 20:13: daily. [place] [address] Medical Branch atorvastati Yes 80mg Take 80 mg Univers n (LIPITOR) 9-25 by mouth ity of 80 mg 20:13: at [place] tablet 49 bedtime. Medical Branch metoprolol 0 Yes 100mg Take 100 Un jan tartrate 9-25 mg by ity of 100 mg 20:13: mouth 2 [place] tablet 49 (two) Medical times Branch daily. TYLENOL 2020-0 Yes 1 daily [facility] ARTHRITIS 9-25 ity of ORAL 20:13: [address] Branch clopidogrel 0 Yes 75mg Take 75 mg Univers (PLAVIX) 75 9-25 by mouth ity of mg tablet 20:13: daily. [place] [address] Medical Branch atorvastati Yes 80mg Take 80 mg Univers n (LIPITOR) 9-25 by mouth ity of 80 mg 20:13: at [place] tablet 49 bedtime. Medical Branch metoprolol 0 Yes 100mg Take 100 Un jan tartrate 9-25 mg by ity of 100 mg 20:13: mouth 2 [place] tablet 49 (two) Medical times Branch daily. TYLENOL 2020-0 Yes 1 daily [facility] ARTHRITIS 9-25 ity of ORAL 20:13: [address] Branch clopidogrel 2020-0 Yes 75mg Take 75 mg [facility] (PLAVIX) 75 9-25 by mouth ity of mg tablet 20:13: daily. [address] Branch atorvastati 0 Yes 80mg Take 80 mg [facility] n (LIPITOR) 9-25 by mouth ity of 80 mg 20:13: at [place] tablet 49 bedtime. Medical Branch metoprolol 0 Yes 100mg Take 100 Un jan tartrate 9-25 mg by ity of 100 mg 20:13: mouth 2 [place] tablet 49 (two) Medical times Branch daily. TYLENOL 2020-0 Yes 1 daily [facility] ARTHRITIS 9-25 ity of ORAL 20:13: [place] [address] Medical Branch clopidogrel 0 Yes 75mg Take 75 mg [facility] (PLAVIX) 75 9-25 by mouth ity of mg tablet 20:13: daily. [place] [address] Medical Branch atorvastati 0 Yes 80mg Take 80 mg [facility] n (LIPITOR) 9-25 by mouth ity of 80 mg 20:13: at [place] tablet 49 bedtime. Medical Branch metoprolol 0 Yes 100mg Take 100 Un jan tartrate 9-25 mg by ity of 100 mg 20:13: mouth 2 [place] tablet 49 (two) Medical times Branch daily. TYLENOL 2020-0 Yes 1 daily [facility] ARTHRITIS 9-25 ity of ORAL 20:13: [place] [address] Medical Branch clopidogrel 0 Yes 75mg Take 75 mg [facility] (PLAVIX) 75 9-25 by mouth ity of mg tablet 20:13: daily. [place] [address] Medical Branch atorvastati 0 Yes 80mg Take 80 mg [facility] n (LIPITOR) 9-25 by mouth ity of 80 mg 20:13: at [place] tablet 49 bedtime. Medical Branch metoprolol 0 Yes 100mg Take 100 Un jan tartrate 9-25 mg by ity of 100 mg 20:13: mouth 2 [place] tablet 49 (two) Medical times Branch daily. TYLENOL 2020-0 Yes 1 daily [facility] ARTHRITIS 9-25 ity of ORAL 20:13: [place] [address] Medical Branch clopidogrel 0 Yes 75mg Take 75 mg [facility] (PLAVIX) 75 9-25 by mouth ity of mg tablet 20:13: daily. [place] [address] Medical Branch atorvastati 0 Yes 80mg Take 80 mg [facility] n (LIPITOR) 9-25 by mouth ity of 80 mg 20:13: at [place] tablet 49 bedtime. Medical Branch metoprolol 2020-0 Yes 100mg Take 100 Un jan tartrate 9-25 mg by ity of 100 mg 20:13: mouth 2 [place] tablet 49 (two) Medical times Branch daily. TYLENOL 0 Yes 1 daily [facility] ARTHRITIS 9-25 ity of ORAL 20:13: [address] Branch clopidogrel 0 Yes 75mg Take 75 mg [facility] (PLAVIX) 75 9-25 by mouth ity of mg tablet 20:13: daily. [address] Branch atorvastati 0 Yes 80mg Take 80 mg [facility] n (LIPITOR) 9-25 by mouth ity of 80 mg 20:13: at [place] tablet 49 bedtime. Medical Branch vitamin 2020-0 Yes 500ug Take 500 Un[facility] rs B-12 9-25 mcg by ity of (VITAMIN 20:13: mouth [place] B-12) 500 49 daily. Medical mcg tablet Branch metoprolol 0 Yes 100mg Take 100 Un jan tartrate 9-25 mg by ity of 100 mg 20:13: mouth 2 [place] tablet 49 (two) Medical times Branch daily. TYLENOL 0 Yes 1 daily [facility] ARTHRITIS 9-25 ity of ORAL 20:13: [place] [address] Medical Branch clopidogrel 0 Yes 75mg Take 75 mg [facility] (PLAVIX) 75 9-25 by mouth ity of mg tablet 20:13: daily. [place] [address] Medical Branch atorvastati 0 Yes 80mg Take 80 mg [facility] n (LIPITOR) 9-25 by mouth ity of 80 mg 20:13: at [place] tablet 49 bedtime. Medical Branch vitamin 0 Yes 500ug Take 500 [facility] rs B-12 9-25 mcg by ity of (VITAMIN 20:13: mouth [place] B-12) 500 49 daily. Medical mcg tablet Branch metoprolol 0 Yes 100mg Take 100 Un jan tartrate 9-25 mg by ity of 100 mg 20:13: mouth 2 [place] tablet 49 (two) Medical times Branch daily. TYLENOL 2020-0 Yes 1 daily [facility] ARTHRITIS 9-25 ity of ORAL 20:13: [address] Branch clopidogrel 0 Yes 75mg Take 75 mg [facility] (PLAVIX) 75 9-25 by mouth ity of mg tablet 20:13: daily. [address] Branch atorvastati 0 Yes 80mg Take 80 mg [facility] n (LIPITOR) 9-25 by mouth ity of 80 mg 20:13: at [place] tablet 49 bedtime. Medical Branch vitamin 2020-0 Yes 500ug Take 500 [facility] rs B-12 9-25 mcg by ity of (VITAMIN 20:13: mouth [place] B-12) 500 49 daily. Medical mcg tablet Branch metoprolol 0 Yes 100mg Take 100 Un jan tartrate 9-25 mg by ity of 100 mg 20:13: mouth 2 [place] tablet 49 (two) Medical times Branch daily. TYLENOL 0 Yes 1 daily [facility] ARTHRITIS 9-25 ity of ORAL 20:13: [place] 49 Medical Branch magnesium 2020-0 Yes [id number] 27mg Take 1 U nivers amino acid 5-05 tablet by ity of chelate 00:00: mouth 2 [place] (MAGNESIUM 00 (two) Medical GLUCONATE times Branch 27 MG [place] daily. MG) tablet magnesium Yes [id number] 27mg Take 1 U nivers amino acid 5-05 tablet by ity of chelate 00:00: mouth 2 [place] (MAGNESIUM 00 (two) Medical GLUCONATE times Branch 27 MG [place] daily. MG) tablet magnesium Yes [id number] 27mg Take 1 U nivers amino acid 5-05 tablet by ity of chelate 00:00: mouth 2 [place] (MAGNESIUM 00 (two) Medical GLUCONATE times Branch 27 MG [place] daily. MG) tablet magnesium Yes [id number] 27mg Take 1 U nivers amino acid 5-05 tablet by ity of chelate 00:00: mouth 2 [place] (MAGNESIUM 00 (two) Medical GLUCONATE times Branch 27 MG [place] daily. MG) tablet magnesium Yes [id number] 27mg Take 1 U nivers amino acid 5-05 tablet by ity of chelate 00:00: mouth 2 [place] (MAGNESIUM 00 (two) Medical GLUCONATE times Branch 27 MG [place] daily. MG) tablet magnesium 2021- No [id number] 27mg Take 1 [facility] amino acid 5-05 11-04 tablet by ity of chelate 00:00: 00:00 mouth 2 [place] (MAGNESIUM 00 :00 (two) Medical GLUCONATE times Branch 27 MG [place] daily. MG) tablet magnesium 2021- No [id number] 27mg Take 1 [facility] amino acid 5-05 11-04 tablet by ity of chelate 00:00: 00:00 mouth 2 [place] (MAGNESIUM 00 :00 (two) Medical GLUCONATE times Branch 27 MG [place] daily. MG) tablet spironolact 2019-05 Yes [id number] 50mg Take 1 [facility] one 50 mg 1-12 tablet by ity o f tablet 00:00: mouth 2 [place] 00 (two) Medical times Branch daily. spironolact 2019-05 Yes [id number] 50mg Take 1 [facility] one 50 mg 1-12 tablet by ity o f tablet 00:00: mouth 2 [place] 00 (two) Medical times Branch daily. spironolact 2019-05 Yes [id number] 50mg Take 1 [facility] one 50 mg 1-12 tablet by ity o f tablet 00:00: mouth 2 [place] (two) Medical times Branch daily. spironolact 2019-05 Yes [id number] 50mg Take 1 [facility] one 50 mg 1-12 tablet by ity o f tablet 00:00: mouth 2 [place] (two) Medical times Branch daily. spironolact 2019-05 Yes [id number] 50mg Take 1 [facility] one 50 mg 1-12 tablet by ity o f tablet 00:00: mouth 2 [place] (two) Medical times Branch daily. spironolact 2019-05- No [id number] 50mg Take 1 [facility] one 50 mg 1-12 11-04 tablet by ity of tablet 00:00: 00:00 mouth 2 [place] 00 :00 (two) Medical times Branch daily. spironolact 2019-05- No [id number] 50mg Take 1 [facility] one 50 mg 1-12 11-04 tablet by ity of tablet 00:00: 00:00 mouth 2 [place] 00 :00 (two) Medical times Branch daily. methocarbam 2019-05 Yes [id number] 750mg Take 1 [facility] oL 750 mg 1-02 tablet by ity o f tablet 00:00: mouth 2 [place] (two) Medical times Branch daily as needed (muscle pain or spasm). methocarbam 2019-05 Yes [id number] 750mg Take 1 [facility] oL 750 mg 1-02 tablet by ity o f tablet 00:00: mouth 2 [place] 00 (two) Medical times Branch daily as needed (muscle pain or spasm). methocarbam 2019-05 Yes [id number] 750mg Take 1 [facility] oL 750 mg 1-02 tablet by ity o f tablet 00:00: mouth 2 00 (two) Medical times Branch daily as needed (muscle pain or spasm). methocarbam 2019-05 Yes [id number] 750mg Take 1 [facility] oL 750 mg 1-02 tablet by ity o f tablet 00:00: mouth 2 [place] 00 (two) Medical times Branch daily as needed (muscle pain or spasm). methocarbam 2019-05 Yes [id number] 750mg Take 1 [facility] oL 750 mg -02 tablet by ity o f tablet 00:00: mouth 2 00 (two) Medical times Branch daily as needed (muscle pain or spasm). methocarbam 2019-05- No [id number] 750mg Take 1 [facility] oL 750 mg -06 26- tablet by ity of tablet 00:00: 00:00 mouth 2 [place] 00 :00 (two) Medical times Branch daily as needed (muscle pain or spasm). methocarbam 2019-05- No [id number] 750mg Take 1 [facility] oL 750 mg 05-17 tablet by ity of tablet 00:00: 00:00 mouth 2 [place] 00 :00 (two) Medical times Branch daily as needed (muscle pain or spasm). digoxin 125 2020-0 Yes .125mg Take 1 Un jan mcg tablet 6-22 tablet by ity of 00:00: mouth [place] 00 daily. Medical Branch digoxin 125 2020-0 Yes .125mg Take 1 Un jan mcg tablet 6-22 tablet by ity of 00:00: mouth [place] 00 daily. Medical Branch digoxin 125 2020-0 Yes .125mg Take 1 Un jan mcg tablet 6-22 tablet by ity of 00:00: mouth [place] 00 daily. Medical Branch digoxin 125 2020-0 Yes .125mg Take 1 Un jan mcg tablet 6-22 tablet by ity of 00:00: mouth [place] 00 daily. Medical Branch digoxin 125 2020-0 Yes .125mg Take 1 Un jan mcg tablet 6-22 tablet by ity of 00:00: mouth [place] 00 daily. Medical Branch digoxin 125 2019-0 2021- No .125mg Take 1 U nivers mcg tablet -06 04- tablet by ity of 00:00: 00:00 mouth [place] 00 :00 daily. Medical Branch digoxin 125 2020-0 2021- No .125mg Take 1 U nivers mcg tablet 6-22 11-04 tablet by ity of 00:00: 00:00 mouth [place] 00 :00 daily. Medical Branch lancets 32 2020-0 Yes [id number] Check U nivers gauge Misc 5-26 glucose ity of 00:00: once daily [place] 00 before Medical breakfast; Branch Diagnosis code E11.9 lancets 32 2020-0 Yes [id number] Check U nivers gauge Misc 5-26 glucose ity of 00:00: once daily [place] 00 before Medical breakfast; Branch Diagnosis code E11.9 lancets 32 2020-0 Yes [id number] Check U nivers gauge Misc 5-26 glucose ity of 00:00: once daily [place] 00 before Medical breakfast; Branch Diagnosis code E11.9 lancets 32 2020-0 Yes [id number] Check U nivers gauge Misc 5-26 glucose ity of 00:00: once daily [place] 00 before Medical breakfast; Branch Diagnosis code E11.9 lancets 32 2020-0 Yes [id number] Check U nivers gauge Misc 5-26 glucose ity of 00:00: once daily [place] 00 before Medical breakfast; Branch Diagnosis code E11.9 lancets 32 2020-0 Yes [id number] Check U nivers gauge Misc 5-26 glucose ity of 00:00: once daily [place] 00 before Medical breakfast; Branch Diagnosis code E11.9 lancets 32 2020-0 Yes [id number] Check U nivers gauge Misc 5-26 glucose ity of 00:00: once daily [place] 00 before Medical breakfast; Branch Diagnosis code E11.9 lancets 32 2020-0 Yes [id number] Check U nivers gauge Misc 5-26 glucose ity of 00:00: once daily [place] 00 before Medical breakfast; Branch Diagnosis code E11.9 lancets 32 2020-0 Yes [id number] Check U nivers gauge Misc 5-26 glucose ity of 00:00: once daily [place] 00 before Medical breakfast; Branch Diagnosis code E11.9 Blood-Gluco 2020-0 Yes [id number] Check [facility] se Meter 5-26 glucose ity of Kit 00:00: once daily [place] 00 before Medical breakfast; Branch Diagnosis code E11.9 blood sugar 2020-0 Yes [id number] Check [facility] diagnostic 5-26 glucose ity of (BLOOD 00:00: once daily [place] GLUCOSE 00 before Medical TEST) strip breakfast; Br anch Diagnosis code E11.9 lancets 32 2020-0 Yes [id number] Check U nivers gauge Misc 5-26 glucose ity of 00:00: once daily [place] 00 before Medical breakfast; Branch Diagnosis code E11.9 Blood-Gluco 2020-0 Yes [id number] Check [facility] se Meter 5-26 glucose ity of Kit 00:00: once daily [place] 00 before Medical breakfast; Branch Diagnosis code E11.9 blood sugar 2020-0 Yes [id number] Check [facility] diagnostic 5-26 glucose ity of (BLOOD 00:00: once daily [place] GLUCOSE 00 before Medical TEST) strip breakfast; Br anch Diagnosis code E11.9 lancets 32 2020-0 Yes [id number] Check U nivers gauge Misc 5-26 glucose ity of 00:00: once daily [place] 00 before Medical breakfast; Branch Diagnosis code E11.9 Blood-Gluco 2020-0 Yes [id number] Check [facility] se Meter 5-26 glucose ity of Kit 00:00: once daily [place] 00 before Medical breakfast; Branch Diagnosis code E11.9 blood sugar 2020-0 Yes [id number] Check [facility] diagnostic 5-26 glucose ity of (BLOOD 00:00: once daily [place] GLUCOSE 00 before Medical TEST) strip breakfast; Br anch Diagnosis code E11.9 lancets 32 2020-0 Yes [id number] Check U nivers gauge Misc 5-26 glucose ity of 00:00: once daily [place] 00 before Medical breakfast; Branch Diagnosis code E11.9 Blood-Gluco 2020-0 Yes [id number] Check [facility] se Meter 5-26 glucose ity of Kit 00:00: once daily [place] 00 before Medical breakfast; Branch Diagnosis code E11.9 blood sugar 2020-0 Yes [id number] Check [facility] diagnostic 5-26 glucose ity of (BLOOD 00:00: once daily [place] GLUCOSE 00 before Medical TEST) strip breakfast; Br anch Diagnosis code E11.9 lancets 32 2020-0 Yes [id number] Check U nivers gauge Misc 5-26 glucose ity of 00:00: once daily [place] 00 before Medical breakfast; Branch Diagnosis code E11.9 Blood-Gluco 2020-0 Yes [id number] Check [facility] se Meter 5-26 glucose ity of Kit 00:00: once daily [place] 00 before Medical breakfast; Branch Diagnosis code E11.9 blood sugar 2020-0 Yes [id number] Check [facility] diagnostic 5-26 glucose ity of (BLOOD 00:00: once daily [place] GLUCOSE 00 before Medical TEST) strip breakfast; Br anch Diagnosis code E11.9 lancets 32 2020-0 Yes [id number] Check U nivers gauge Misc 5-26 glucose ity of 00:00: once daily [place] 00 before Medical breakfast; Branch Diagnosis code E11.9 lancets 32 2020-0 Yes [id number] Check U nivers gauge Misc 5-26 glucose ity of 00:00: once daily [place] 00 before Medical breakfast; Branch Diagnosis code E11.9 lancets 32 2020-0 Yes [id number] Check U nivers gauge Misc 5-26 glucose ity of 00:00: once daily [place] 00 before Medical breakfast; Branch Diagnosis code E11.9 lancets 32 2020-0 Yes [id number] Check U nivers gauge Misc 5-26 glucose ity of 00:00: once daily [place] 00 before Medical breakfast; Branch Diagnosis code E11.9 lancets 32 2020-0 Yes [id number] Check U nivers gauge Misc 5-26 glucose ity of 00:00: once daily [place] 00 before Medical breakfast; Branch Diagnosis code E11.9 lancets 32 2019-0 Yes [id number] Check U nivers gauge Misc 5-26 glucose ity of 00:00: once daily [place] 00 before Medical breakfast; Branch Diagnosis code E11.9 lancets 32 2019-0 Yes [id number] Check U nivers gauge Misc 5-26 glucose ity of 00:00: once daily [place] 00 before Medical breakfast; Branch Diagnosis code E11.9 lancets 32 2020-0 Yes [id number] Check U nivers gauge Misc 5-26 glucose ity of 00:00: once daily [place] 00 before Medical breakfast; Branch Diagnosis code E11.9 lancets 32 2020-0 Yes [id number] Check U nivers gauge Misc 5-26 glucose ity of 00:00: once daily [place] 00 before Medical breakfast; Branch Diagnosis code E11.9 lancets 32 2020-0 Yes [id number] Check U nivers gauge Misc 5-26 glucose ity of 00:00: once daily [place] 00 before Medical breakfast; Branch Diagnosis code E11.9 lancets 32 2020-0 Yes [id number] Check U nivers gauge Misc 5-26 glucose ity of 00:00: once daily [place] 00 before Medical breakfast; Branch Diagnosis code E11.9 lancets 32 2020-0 Yes [id number] Check U nivers gauge Misc 5-26 glucose ity of 00:00: once daily [place] 00 before Medical breakfast; Branch Diagnosis code E11.9 lancets 32 2019-0 Yes [id number] Check U nivers gauge Misc 5-26 glucose ity of 00:00: once daily [place] 00 before Medical breakfast; Branch Diagnosis code E11.9 lancets 32 2019-0 Yes [id number] Check U nivers gauge Misc 5-26 glucose ity of 00:00: once daily [place] 00 before Medical breakfast; Branch Diagnosis code E11.9 lancets 32 2019-0 Yes [id number] Check U nivers gauge Misc 5-26 glucose ity of 00:00: once daily [place] 00 before Medical breakfast; Branch Diagnosis code E11.9 Blood-Gluco 2021- No [id number] Check [facility] se Meter 10-08 11-04 glucose ity of Kit 00:00: 00:00 once daily [place] 00 :00 before Medical breakfast; Branch Diagnosis code E11.9 blood sugar 2021- No [id number] Check [facility] diagnostic 10-08 11-04 glucose ity o f (BLOOD 00:00: 00:00 [place] GLUCOSE 00 :00 before Medical TEST) strip breakfast; Br anch Diagnosis code E11.9 Blood-Gluco 2021- No [id number] Check [facility] se Meter 10-08 11-04 glucose ity of Kit 00:00: 00:00 once daily [place] 00 :00 before Medical breakfast; Branch Diagnosis code E11.9 blood sugar 2021- No [id number] Check [facility] diagnostic 10-08-04 glucose ity o f (BLOOD 00:00: 00:00 [place] daily [place] GLUCOSE 00 :00 before Medical TEST) strip breakfast; Br anch Diagnosis code E11.9 albuterol 2019- Yes [id number] 2{puff} Inhale 2 [facility] (VENTOLIN 3-13 Puffs ity of HFA) 90 00:00: every 6 [place] mcg/actuati 00 (six) Medical on inhaler hours as Branc h needed for Wheezing or Shortness of Breath. albuterol Yes [id number] 2{puff} Inhale 2 [facility] (VENTOLIN 3-13 Puffs ity of HFA) 90 00:00: every 6 [place] mcg/actuati 00 (six) Medical on inhaler hours as Branc h needed for Wheezing or Shortness of Breath. albuterol 2019-0 Yes [id number] 2{puff} Inhale 2 [facility] (VENTOLIN 3-13 Puffs ity of HFA) 90 00:00: every 6 [place] mcg/actuati 00 (six) Medical on inhaler hours as Branc h needed for Wheezing or Shortness of Breath. albuterol 2019-0 Yes [id number] 2{puff} Inhale 2 [facility] (VENTOLIN 3-13 Puffs ity of HFA) 90 00:00: every 6 [place] mcg/actuati 00 (six) Medical on inhaler hours as Branc h needed for Wheezing or Shortness of Breath. albuterol 0 Yes [id number] 2{puff} Inhale 2 [facility] (VENTOLIN 3-13 Puffs ity of HFA) 90 00:00: every 6 [place] mcg/actuati 00 (six) Medical on inhaler hours as Branc h needed for Wheezing or Shortness of Breath. albuterol 2021- No [id number] 2{puff} Inhale 2 [facility] (VENTOLIN 3-13 11-04 Puffs ity of HFA) 90 00:00: 00:00 every 6 [place] mcg/actuati 00 :00 (six) Medical on inhaler hours as Branc h needed for Wheezing or Shortness of Breath. albuterol 0 2021- No [id number] 2{puff} Inhale 2 [facility] (VENTOLIN 3-13 11-04 Puffs ity of HFA) 90 00:00: 00:00 every 6 [place] mcg/actuati 00 :00 (six) Medical on inhaler hours as Branc h needed for Wheezing or Shortness of Breath. bumetanide 2020-0 Yes [id number] 1mg Take 1 [facility] 1 mg tablet 1-31 tablet by ity of 00:00: mouth [place] 00 every Medical morning Branch and evening. bumetanide 2020-0 Yes [id number] 1mg Take 1 [facility] 1 mg tablet 1-31 tablet by ity of 00:00: mouth [place] 00 every Medical morning Branch and evening. bumetanide 2020-0 Yes [id number] 1mg Take 1 [facility] 1 mg tablet 1-31 tablet by ity of 00:00: mouth [place] 00 every Medical morning Branch and evening. bumetanide 2020-0 Yes [id number] 1mg Take 1 [facility] 1 mg tablet 1-31 tablet by ity of 00:00: mouth [place] 00 every Medical morning Branch and evening. bumetanide 2020-0 Yes [id number] 1mg Take 1 [facility] 1 mg tablet 1-31 tablet by ity of 00:00: mouth [place] 00 every Medical morning Branch and evening. bumetanide 2020-0 Yes [id number] 1mg Take 1 [facility] 1 mg tablet 1-31 tablet by ity of 00:00: mouth [place] 00 every Medical morning Branch and evening. bumetanide 2020-0 Yes [id number] 1mg Take 1 [facility] 1 mg tablet 1-31 tablet by ity of 00:00: mouth [place] 00 every Medical morning Branch and evening. bumetanide 2020-0 Yes [id number] 1mg Take 1 [facility] 1 mg tablet 1-31 tablet by ity of 00:00: mouth [place] 00 every Medical morning Branch and evening. bumetanide 2020-0 Yes [id number] 1mg Take 1 [facility] 1 mg tablet 1-31 tablet by ity of 00:00: mouth [place] 00 every Medical morning Branch and evening. bumetanide 2020-0 Yes [id number] 1mg Take 1 [facility] 1 mg tablet 1-31 tablet by ity of 00:00: mouth [place] 00 every Medical morning Branch and evening. bumetanide 2020-0 Yes [id number] 1mg Take 1 [facility] 1 mg tablet 1-31 tablet by ity of 00:00: mouth [place] 00 every Medical morning Branch and evening. bumetanide 2020-0 Yes [id number] 1mg Take 1 [facility] 1 mg tablet 1-31 tablet by ity of 00:00: mouth [place] 00 every Medical morning Branch and evening. bumetanide 2020-0 Yes [id number] 1mg Take 1 [facility] 1 mg tablet 1-31 tablet by ity of 00:00: mouth [place] 00 every Medical morning Branch and evening. bumetanide 2020-0 Yes [id number] 1mg Take 1 [facility] 1 mg tablet 1-31 tablet by ity of 00:00: mouth [place] 00 every Medical morning Branch and evening. bumetanide 2020-0 Yes [id number] 1mg Take 1 [facility] 1 mg tablet 1-31 tablet by ity of 00:00: mouth [place] 00 every Medical morning Branch and evening. bumetanide 2020-0 Yes [id number] 1mg Take 1 [facility] 1 mg tablet 1-31 tablet by ity of 00:00: mouth [place] 00 every Medical morning Branch and evening. bumetanide 2020-0 Yes [id number] 1mg Take 1 [facility] 1 mg tablet 1-31 tablet by ity of 00:00: mouth [place] 00 every Medical morning Branch and evening. bumetanide 2020-0 Yes [id number] 1mg Take 1 [facility] 1 mg tablet 1-31 tablet by ity of 00:00: mouth [place] 00 every Medical morning Branch and evening. bumetanide 2020-0 Yes [id number] 1mg Take 1 [facility] 1 mg tablet 1-31 tablet by ity of 00:00: mouth [place] 00 every Medical morning Branch and evening. bumetanide 2020-0 Yes [id number] 1mg Take 1 [facility] 1 mg tablet 1-31 tablet by ity of 00:00: mouth [place] 00 every Medical morning Branch and evening. bumetanide 2020-0 Yes [id number] 1mg Take 1 [facility] 1 mg tablet 1-31 tablet by ity of 00:00: mouth [place] 00 every Medical morning Branch and evening. bumetanide 2020-0 Yes [id number] 1mg Take 1 [facility] 1 mg tablet 1-31 tablet by ity of 00:00: mouth [place] 00 every Medical morning Branch and evening. bumetanide 2020-0 Yes [id number] 1mg Take 1 [facility] 1 mg tablet 1-31 tablet by ity of 00:00: mouth [place] 00 every Medical morning Branch and evening. bumetanide 2020-0 Yes [id number] 1mg Take 1 [facility] 1 mg tablet 1-31 tablet by ity of 00:00: mouth [place] 00 every Medical morning Branch and evening. bumetanide 2020-0 Yes [id number] 1mg Take 1 [facility] 1 mg tablet 1-31 tablet by ity of 00:00: mouth [place] 00 every Medical morning Branch and evening. bumetanide 2020-0 Yes [id number] 1mg Take 1 [facility] 1 mg tablet 1-31 tablet by ity of 00:00: mouth [place] 00 every Medical morning Branch and evening. bumetanide 2020-0 Yes [id number] 1mg Take 1 [facility] 1 mg tablet 1-31 tablet by ity of 00:00: mouth [place] 00 every Medical morning Branch and evening. bumetanide Yes [id number] 1mg Take 1 [facility] 1 mg tablet 1-31 tablet by ity of 00:00: mouth [place] 00 every Medical morning Branch and evening. naproxen 2018-05 Yes [id number] 500mg Take 1 [facility] nivers 500 mg 2-11 tablet by ity of tablet 00:00: mouth 2 (two) Medical times Branch daily with meals. naproxen 2018-05 Yes [id number] 500mg Take 1 [facility] nivers 500 mg 2-11 tablet by ity of tablet 00:00: mouth 2 (two) Medical times Branch daily with meals. naproxen 2018-05 Yes [id number] 500mg Take 1 U nivers 500 mg 2-11 tablet by ity of tablet 00:00: mouth [place] (two) Medical times Branch daily with meals. naproxen 2018-05 Yes [id number] 500mg Take 1 U nivers 500 mg 2-11 tablet by ity of tablet 00:00: mouth [place] (two) Medical times Branch daily with meals. naproxen 2018-05 Yes [id number] 500mg Take 1 [facility] nivers 500 mg 2-11 tablet by ity of tablet 00:00: mouth (two) Medical times Branch daily with meals. naproxen 2018-05- No [id number] 500mg Take 1 [facility] 500 mg 2-11 11-04 tablet by ity of tablet 00:00: 00:00 mouth 2 [place] 00 :00 (two) Medical times Branch daily with meals. naproxen 2018-05- No [id number] 500mg Take 1 [facility] 500 mg 2-11 11-04 tablet by ity of tablet 00:00: 00:00 mouth 2 [place] 00 :00 (two) Medical times Branch daily with meals. NITROGLYCER 2018-[address] [facility] rs IN SL 0-02 under the ity of 14:11: tongue. [address] NITROGLYCER 2018-[address] [facility] rs IN SL 0-02 under the ity of 14:11: tongue. [address] NITROGLYCER 2018-[address] Un[facility] rs IN SL 0-02 under the ity of 14:11: tongue. [place] 55 Medical Branch NITROGLYCER 2018-[address] Un[facility] rs IN SL 0-02 under the ity of 14:11: tongue. [place] [address] Medical Branch NITROGLYCER 2018-[address] Un[facility] rs IN SL 0-02 under the ity of 14:11: tongue. [place] [address] Medical Branch NITROGLYCER 2018-[address] Un[facility] rs IN SL 0-02 under the ity of 14:11: tongue. [place] [address] Medical Branch NITROGLYCER 2018-[address] Un[facility] rs IN SL 0-02 under the ity of 14:11: tongue. [place] [address] Medical Branch NITROGLYCER 2018-[address] Unive rs IN SL 0-02 under the ity of 14:11: tongue. [place] [address] Medical Branch NITROGLYCER 2018-[address] Unive rs IN SL 0-02 under the ity of 14:11: tongue. [place] [address] Medical Branch NITROGLYCER 2018-[address] Unive rs IN SL 0-02 under the ity of 14:11: tongue. [place] [address] Medical Branch NITROGLYCER 2018-[address] Unive rs IN SL 0-02 under the ity of 14:11: tongue. [place] [address] Medical Branch NITROGLYCER 2018-05 Yes Place Un[facility] rs IN SL 0-02 under the ity of 14:11: tongue. [place] [address] [facility] NITROGLYCER 2018-[address] [facility] IN SL 0-02 under the ity of 14:11: tongue. [place] [address] [facility] NITROGLYCER 2018-[address] [facility] IN SL 0-02 under the ity of 14:11: tongue. [place] [address] [facility] NITROGLYCER 2018-[address] [facility] IN SL 0-02 under the ity of 14:11: tongue. [place] [address] [facility] NITROGLYCER 2018-[address] [facility] IN SL 0-02 under the ity of 14:11: tongue. [place] [address] [facility] NITROGLYCER 2018-[address] [facility] IN SL 0-02 under the ity of 14:11: tongue. [place] [address] [facility] NITROGLYCER 2018-[address] Un[facility] IN SL 0-02 under the ity of 14:11: tongue. [place] [address] [facility] NITROGLYCER 2018-[address] [facility] IN SL 0-02 under the ity of 14:11: tongue. [place] [address] [facility] NITROGLYCER 2018-[address] [facility] IN SL 0-02 under the ity of 14:11: tongue. [address] NITROGLYCER 2018-[address] [facility] IN SL 0-02 under the ity of 14:11: tongue. [address] NITROGLYCER 2018-[address] [facility] IN SL 0-02 under the ity of 14:11: tongue. [address] NITROGLYCER 2018-[address] [facility] IN SL 0-02 under the ity of 14:11: tongue. [address] NITROGLYCER 2018-[address] Un[facility] IN SL 0-02 under the ity of 14:11: tongue. [address] NITROGLYCER 2018-[address] [facility] IN SL 0-02 under the ity of 14:11: tongue. [address] NITROGLYCER 2018-[address] [facility] IN SL 0-02 under the ity of 14:11: tongue. [address] NITROGLYCER 2018-[address] Un[facility] IN SL 0-02 under the ity of 14:11: tongue. [address] NITROGLYCER 2018-[address] Un[facility] IN SL 0-02 under the ity of 14:11: tongue. [address] loratadine Yes [id number] 10mg Take 1 [facility] 10 mg 9-24 tablet by ity of tablet 00:00: mouth [place] 00 every Medical morning. Branch For allergies and congestion . loratadine Yes [id number] 10mg Take 1 [facility] 10 mg 9-24 tablet by ity of tablet 00:00: mouth [place] 00 every Medical morning. Branch For allergies and congestion . loratadine Yes [id number] 10mg Take 1 [facility] 10 mg 9-24 tablet by ity of tablet 00:00: mouth [place] 00 every Medical morning. Branch For allergies and congestion . loratadine Yes [id number] 10mg Take 1 [facility] 10 mg 9-24 tablet by ity of tablet 00:00: mouth [place] 00 every Medical morning. Branch For allergies and congestion . loratadine Yes [id number] 10mg Take 1 [facility] 10 mg 9-24 tablet by ity of tablet 00:00: mouth [place] 00 every Medical morning. Branch For allergies and congestion . loratadine 2018- Yes [id number] 10mg Take 1 [facility] 10 mg 9-24 tablet by ity of tablet 00:00: mouth [place] 00 every Medical morning. Branch For allergies and congestion . loratadine 2019-0 Yes [id number] 10mg Take 1 [facility] 10 mg 9-24 tablet by ity of tablet 00:00: mouth [place] 00 every Medical morning. Branch For allergies and congestion . loratadine 2019-0 Yes [id number] 10mg Take 1 [facility] 10 mg 9-24 tablet by ity of tablet 00:00: mouth [place] 00 every Medical morning. Branch For allergies and congestion . loratadine 2019-0 Yes [id number] 10mg Take 1 [facility] 10 mg 9-24 tablet by ity of tablet 00:00: mouth [place] 00 every Medical morning. Branch For allergies and congestion . loratadine 2019-0 Yes [id number] 10mg Take 1 [facility] 10 mg 9-24 tablet by ity of tablet 00:00: mouth [place] 00 every Medical morning. Branch For allergies and congestion . fluticasone 2019-0 Yes [id number] 2{spray Use 2 [facility] propionate 9-24 } Sprays in ity of 50 00:00: each [place] mcg/actuati 00 nostril Medic al on nasal daily. Branch spray loratadine 2019-0 Yes [id number] 10mg Take 1 [facility] 10 mg 9-24 tablet by ity of tablet 00:00: mouth [place] 00 every Medical morning. Branch For allergies and congestion . fluticasone 2019-0 Yes [id number] 2{spray Use 2 [facility] propionate 9-24 } Sprays in ity of 50 00:00: each [place] mcg/actuati 00 nostril Medic al on nasal daily. Branch spray loratadine 2019-0 Yes [id number] 10mg Take 1 [facility] 10 mg 9-24 tablet by ity of tablet 00:00: mouth [place] 00 every Medical morning. Branch For allergies and congestion . fluticasone 2019-0 Yes [id number] 2{spray Use 2 [facility] propionate 9-24 } Sprays in ity of 50 00:00: each [place] mcg/actuati 00 nostril Medic al on nasal daily. Branch spray loratadine 2019-0 Yes [id number] 10mg Take 1 [facility] 10 mg 9-24 tablet by ity of tablet 00:00: mouth [place] 00 every Medical morning. Branch For allergies and congestion . fluticasone 2019-0 Yes [id number] 2{spray Use 2 [facility] propionate 9-24 } Sprays in ity of 50 00:00: each [place] mcg/actuati 00 nostril Medic al on nasal daily. Branch spray loratadine 2019-0 Yes [id number] 10mg Take 1 [facility] 10 mg 9-24 tablet by ity of tablet 00:00: mouth [place] 00 every Medical morning. Branch For allergies and congestion . fluticasone 2019-0 Yes [id number] 2{spray Use 2 [facility] propionate 9-24 } Sprays in ity of 50 00:00: each [place] mcg/actuati 00 nostril Medic al on nasal daily. Branch spray loratadine 2019-0 Yes [id number] 10mg Take 1 [facility] 10 mg 9-24 tablet by ity of tablet 00:00: mouth [place] 00 every Medical morning. Branch For allergies and congestion . loratadine 2019-0 Yes [id number] 10mg Take 1 [facility] 10 mg 9-24 tablet by ity of tablet 00:00: mouth [place] 00 every Medical morning. Branch For allergies and congestion . loratadine 2019-0 Yes [id number] 10mg Take 1 [facility] 10 mg 9-24 tablet by ity of tablet 00:00: mouth [place] 00 every Medical morning. Branch For allergies and congestion . loratadine 2019-0 Yes [id number] 10mg Take 1 [facility] 10 mg 9-24 tablet by ity of tablet 00:00: mouth [place] 00 every Medical morning. Branch For allergies and congestion . loratadine 2019-0 Yes [id number] 10mg Take 1 [facility] 10 mg 9-24 tablet by ity of tablet 00:00: mouth [place] 00 every Medical morning. Branch For allergies and congestion . loratadine 2019-0 Yes [id number] 10mg Take 1 [facility] 10 mg 9-24 tablet by ity of tablet 00:00: mouth [place] 00 every Medical morning. Branch For allergies and congestion . loratadine 2019-0 Yes [id number] 10mg Take 1 [facility] 10 mg 9-24 tablet by ity of tablet 00:00: mouth [place] 00 every Medical morning. Branch For allergies and congestion . loratadine 2019-0 Yes [id number] 10mg Take 1 [facility] 10 mg 9-24 tablet by ity of tablet 00:00: mouth [place] 00 every Medical morning. Branch For allergies and congestion . loratadine 2019-0 Yes [id number] 10mg Take 1 [facility] 10 mg 9-24 tablet by ity of tablet 00:00: mouth [place] 00 every Medical morning. Branch For allergies and congestion . loratadine Yes [id number] 10mg Take 1 [facility] 10 mg 9-24 tablet by ity of tablet 00:00: mouth [place] 00 every Medical morning. Branch For allergies and congestion . loratadine Yes [id number] 10mg Take 1 [facility] 10 mg 9-24 tablet by ity of tablet 00:00: mouth [place] 00 every Medical morning. Branch For allergies and congestion . loratadine Yes [id number] 10mg Take 1 [facility] 10 mg 9-24 tablet by ity of tablet 00:00: mouth [place] 00 every Medical morning. Branch For allergies and congestion . loratadine Yes [id number] 10mg Take 1 [facility] 10 mg 9-24 tablet by ity of tablet 00:00: mouth [place] 00 every Medical morning. Branch For allergies and congestion . loratadine Yes [id number] 10mg Take 1 [facility] 10 mg 9-24 tablet by ity of tablet 00:00: mouth [place] 00 every Medical morning. Branch For allergies and congestion . fluticasone 2021- No [id number] 2{spray Use 2 [facility] propionate 02-06 11-04 } Sprays in ity of 50 00:00: 00:00 each [place] mcg/actuati 00 :00 nostril Medic al on nasal daily. Branch spray fluticasone 2021- No [id number] 2{spray Use 2 [facility] propionate 02-06 11-04 } Sprays in ity of 50 00:00: 00:00 each [place] mcg/actuati 00 :00 nostril Medic al on nasal daily. Branch spray Dexlansopra Yes [id number] 60mg Take 1 [facility] zole 9-04 capsule by ity of (DEXILANT) 00:00: mouth [place] 60 mg 00 daily. Medical capsule REPLACES Branch PANTOPRAZO LE. Dexlansopra Yes [id number] 60mg Take 1 [facility] zole 9-04 capsule by ity of (DEXILANT) 00:00: mouth [place] 60 mg 00 daily. Medical capsule REPLACES Branch PANTOPRAZO LE. Dexlansopra Yes [id number] 60mg Take 1 [facility] zole 9-04 capsule by ity of (DEXILANT) 00:00: mouth [place] 60 mg 00 daily. Medical capsule REPLACES Branch PANTOPRAZO LE. Dexlansopra 2019- Yes [id number] 60mg Take 1 [facility] zole 9-04 capsule by ity of (DEXILANT) 00:00: mouth [place] 60 mg 00 daily. Medical capsule REPLACES Branch PANTOPRAZO LE. Dexlansopra 2018- Yes [id number] 60mg Take 1 [facility] zole 9-04 capsule by ity of (DEXILANT) 00:00: mouth [place] 60 mg 00 daily. Medical capsule REPLACES Branch PANTOPRAZO LE. Dexlansopra 2018-2021- No [id number] 60mg Take 1 [facility] zole 9-04 11-04 capsule by ity of (DEXILANT) 00:00: 00:00 mouth [place] 60 mg 00 :00 daily. Medical capsule REPLACES Branch PANTOPRAZO LE. Dexlansopra 2018-2021- No [id number] 60mg Take 1 [facility] zole 9-04 11-04 capsule by ity of (DEXILANT) 00:00: 00:00 mouth [place] 60 mg 00 :00 daily. Medical capsule REPLACES Branch PANTOPRAZO LE. ipratropium 2019- Yes [id number] 3mL Inhale 3 Univers -albuterol 8-27 mL 4 ity of 0.5 mg-3 00:00: (four) [place] mg(2.5 mg 00 times Medical base)/3 mL daily. Branch nebulizer ICD-10 solution code J44.9 ipratropium 2019- Yes [id number] 3mL Inhale 3 Univers -albuterol 8-27 mL 4 ity of 0.5 mg-3 00:00: (four) [place] mg(2.5 mg 00 times Medical base)/3 mL daily. Branch nebulizer ICD-10 solution code J44.9 ipratropium 2019-0 Yes [id number] 3mL Inhale 3 Univers -albuterol 8-27 mL 4 ity of 0.5 mg-3 00:00: (four) [place] mg(2.5 mg 00 times Medical base)/3 mL daily. Branch nebulizer ICD-10 solution code J44.9 ipratropium 2019-0 Yes [id number] 3mL Inhale 3 Univers -albuterol 8-27 mL 4 ity of 0.5 mg-3 00:00: (four) [place] mg(2.5 mg 00 times Medical base)/3 mL daily. Branch nebulizer ICD-10 solution code J44.9 ipratropium 2019- Yes [id number] 3mL Inhale 3 Univers -albuterol 8-27 mL 4 ity of 0.5 mg-3 00:00: (four) [place] mg(2.5 mg 00 times Medical base)/3 mL daily. Branch nebulizer ICD-10 solution code J44.9 ipratropium 2018-2021- No [id number] 3mL Inhale 3 Univers -albuterol 8-27 11-04 mL 4 ity of 0.5 mg-3 00:00: 00:00 (four) [place] mg(2.5 mg 00 :00 times Medical base)/3 mL daily. Branch nebulizer ICD-10 solution code J44.9 ipratropium 2018-2021- No [id number] 3mL Inhale 3 Univers -albuterol 8-27 11-04 mL 4 ity of 0.5 mg-3 00:00: 00:00 (four) [place] mg(2.5 mg 00 :00 times Medical base)/3 mL daily. Branch nebulizer ICD-10 solution code J44.9 montelukast Yes [id number] 10mg Take 1 [facility] 10 mg 8-25 tablet by ity of tablet 00:00: mouth [place] 00 every Medical evening. Branch For allergies and congestion . montelukast Yes [id number] 10mg Take 1 [facility] 10 mg 8-25 tablet by ity of tablet 00:00: mouth [place] 00 every Medical evening. Branch For allergies and congestion . montelukast Yes [id number] 10mg Take 1 [facility] 10 mg 8-25 tablet by ity of tablet 00:00: mouth [place] 00 every Medical evening. Branch For allergies and congestion . montelukast Yes [id number] 10mg Take 1 [facility] 10 mg 8-25 tablet by ity of tablet 00:00: mouth [place] 00 every Medical evening. Branch For allergies and congestion . montelukast 2018- Yes [id number] 10mg Take 1 [facility] 10 mg 8-25 tablet by ity of tablet 00:00: mouth [place] 00 every Medical evening. Branch For allergies and congestion . montelukast 2021- No [id number] 10mg Take 1 [facility] 10 mg 8-25 11-04 tablet by ity of tablet 00:00: 00:00 mouth [place] 00 :00 every Medical evening. Branch For allergies and congestion . montelukast 2021- No [id number] 10mg Take 1 [facility] 10 mg 8-25 11-04 tablet by ity of tablet 00:00: 00:00 mouth [place] 00 :00 every Medical evening. Branch For allergies and congestion . calcium Yes [id number] 500mg Take 1 Uni vers carbonate 7-17 tablet by ity o f 500 mg 00:00: mouth [place] calcium 00 daily. Medical (1,250 mg) Branch tablet calcium Yes [id number] 500mg Take 1 Uni vers carbonate 7-17 tablet by ity o f 500 mg 00:00: mouth [place] calcium 00 daily. Medical (1,250 mg) Branch tablet calcium Yes [id number] 500mg Take 1 Uni vers carbonate 7-17 tablet by ity o f 500 mg 00:00: mouth [place] calcium 00 daily. Medical (1,250 mg) Branch tablet calcium Yes [id number] 500mg Take 1 Uni vers carbonate 7-17 tablet by ity o f 500 mg 00:00: mouth [place] calcium 00 daily. Medical (1,250 mg) Branch tablet calcium Yes [id number] 500mg Take 1 Uni vers carbonate 7-17 tablet by ity o f 500 mg 00:00: mouth [place] calcium 00 daily. Medical (1,250 mg) Branch tablet calcium 2021- No [id number] 500mg Take 1 Un jan carbonate 7-17 11-04 tablet by ity of 500 mg 00:00: 00:00 mouth [place] calcium 00 :00 daily. Medical (1,250 mg) Branch tablet calcium 2021- No [id number] 500mg Take 1 Un jan carbonate 7-17 11-04 tablet by ity of 500 mg 00:00: 00:00 mouth [place] calcium 00 :00 daily. Medical (1,250 mg) Branch tablet sodium Yes [id number] 4mL Inhale 4 Un jan chloride 7% 7-16 mL 2 (two) it y of nebulizer 00:00: times [place] solution 00 daily. Medical Branch sodium Yes [id number] 4mL Inhale 4 Un jan chloride 7% 7-16 mL 2 (two) it y of nebulizer 00:00: times [place] solution 00 daily. Medical Branch sodium 2018- Yes [id number] 4mL Inhale 4 Un jan chloride 7% 7-16 mL 2 (two) it y of nebulizer 00:00: times [place] solution 00 daily. [facility] Branch sodium 2018- Yes [id number] 4mL Inhale 4 Un jan chloride 7% 7-16 mL 2 (two) it y of nebulizer 00:00: times [place] solution 00 daily. [facility] Branch sodium 2018- Yes [id number] 4mL Inhale 4 Un jan chloride 7% 7-16 mL 2 (two) it y of nebulizer 00:00: times [place] solution 00 daily. [facility] Branch sodium 2018-2021- No [id number] 4mL Inhale 4 U nivers chloride 7% 7-16 11-04 mL 2 (two) i ty of nebulizer 00:00: 00:00 times [place] solution 00 :00 daily. [facility] sodium 2018-2021- No [id number] 4mL Inhale 4 U nivers chloride 7% 7-16 11-04 mL 2 (two) i ty of nebulizer 00:00: 00:00 times [place] solution 00 :00 daily. [facility] rivaroxaban Yes [id number] 20mg Take 1 Univers (XARELTO) 6-19 tablet by ity o f 20 mg 00:00: mouth [place] tablet 00 daily. [facility] rivaroxaban Yes [id number] 20mg Take 1 Univers (XARELTO) 6-19 tablet by ity o f 20 mg 00:00: mouth [place] tablet 00 daily. [facility] rivaroxaban Yes [id number] 20mg Take 1 [facility] (XARELTO) 6-19 tablet by ity o f 20 mg 00:00: mouth [place] tablet 00 daily. [facility] rivaroxaban Yes [id number] 20mg Take 1 [facility] (XARELTO) 6-19 tablet by ity o f 20 mg 00:00: mouth [place] tablet 00 daily. [facility] rivaroxaban Yes [id number] 20mg Take 1 [facility] (XARELTO) 6-19 tablet by ity o f 20 mg 00:00: mouth [place] tablet 00 daily. [facility] Branch rivaroxaban Yes [id number] 20mg Take 1 [facility] (XARELTO) 6-19 tablet by ity o f 20 mg 00:00: mouth [place] tablet 00 daily. [facility] Branch rivaroxaban Yes [id number] 20mg Take 1 [facility] (XARELTO) 6-19 tablet by ity o f 20 mg 00:00: mouth [place] tablet 00 daily. [facility] Branch rivaroxaban Yes [id number] 20mg Take 1 [facility] (XARELTO) 6-19 tablet by ity o f 20 mg 00:00: mouth [place] tablet 00 daily. [facility] Branch rivaroxaban Yes [id number] 20mg Take 1 [facility] (XARELTO) 6-19 tablet by ity o f 20 mg 00:00: mouth [place] tablet 00 daily. [facility] Branch rivaroxaban Yes [id number] 20mg Take 1 [facility] (XARELTO) 6-19 tablet by ity o f 20 mg 00:00: mouth [place] tablet 00 daily. [facility] Branch rivaroxaban Yes [id number] 20mg Take 1 [facility] (XARELTO) 6-19 tablet by ity o f 20 mg 00:00: mouth [place] tablet 00 daily. [facility] Branch rivaroxaban Yes [id number] 20mg Take 1 [facility] (XARELTO) 6-19 tablet by ity o f 20 mg 00:00: mouth [place] tablet 00 daily. [facility] Branch rivaroxaban Yes [id number] 20mg Take 1 [facility] (XARELTO) 6-19 tablet by ity o f 20 mg 00:00: mouth [place] tablet 00 daily. [facility] Branch rivaroxaban Yes [id number] 20mg Take 1 [facility] (XARELTO) 6-19 tablet by ity o f 20 mg 00:00: mouth [place] tablet 00 daily. [facility] Branch rivaroxaban 2018- Yes [id number] 20mg Take 1 [facility] (XARELTO) 6-19 tablet by ity o f 20 mg 00:00: mouth [place] tablet 00 daily. [facility] Branch rivaroxaban Yes [id number] 20mg Take 1 [facility] (XARELTO) 6-19 tablet by ity o f 20 mg 00:00: mouth [place] tablet 00 daily. [facility] Branch rivaroxaban 2018- Yes [id number] 20mg Take 1 [facility] (XARELTO) 6-19 tablet by ity o f 20 mg 00:00: mouth [place] tablet 00 daily. [facility] Branch rivaroxaban Yes [id number] 20mg Take 1 [facility] (XARELTO) 6-19 tablet by ity o f 20 mg 00:00: mouth [place] tablet 00 daily. [facility] rivaroxaban 2018- Yes [id number] 20mg Take 1 [facility] (XARELTO) 6-19 tablet by ity o f 20 mg 00:00: mouth [place] tablet 00 daily. [facility] Branch rivaroxaban Yes [id number] 20mg Take 1 [facility] (XARELTO) 6-19 tablet by ity o f 20 mg 00:00: mouth [place] tablet 00 daily. [facility] Branch rivaroxaban Yes [id number] 20mg Take 1 [facility] (XARELTO) 6-19 tablet by ity o f 20 mg 00:00: mouth [place] tablet 00 daily. [facility] Branch rivaroxaban Yes [id number] 20mg Take 1 [facility] (XARELTO) 6-19 tablet by ity o f 20 mg 00:00: mouth [place] tablet 00 daily. [facility] Branch rivaroxaban Yes [id number] 20mg Take 1 [facility] (XARELTO) 6-19 tablet by ity o f 20 mg 00:00: mouth [place] tablet 00 daily. [facility] rivaroxaban Yes [id number] 20mg Take 1 [facility] (XARELTO) 6-19 tablet by ity o f 20 mg 00:00: mouth [place] tablet 00 daily. [facility] Branch rivaroxaban Yes [id number] 20mg Take 1 [facility] (XARELTO) 6-19 tablet by ity o f 20 mg 00:00: mouth [place] tablet 00 daily. [facility] rivaroxaban 2018- Yes [id number] 20mg Take 1 [facility] (XARELTO) 6-19 tablet by ity o f 20 mg 00:00: mouth [place] tablet 00 daily. [facility] Branch rivaroxaban Yes [id number] 20mg Take 1 [facility] (XARELTO) 6-19 tablet by ity o f 20 mg 00:00: mouth [place] tablet 00 daily. [facility] rivaroxaban 2018- Yes [id number] 20mg Take 1 [facility] (XARELTO) 6-19 tablet by ity o f 20 mg 00:00: mouth [place] tablet 00 daily. Medical Branch nystatin 2019- Yes [id number] Apply to U nivers 100,000 6-13 area(s) 2 ity of unit/gram 00:00: (two) [place] ointment 00 times Medical daily. Branch nystatin Yes [id number] Apply to U nivers 100,000 6-13 area(s) 2 ity of unit/gram 00:00: (two) [place] ointment 00 times Medical daily. Branch nystatin Yes [id number] Apply to U nivers 100,000 6-13 area(s) 2 ity of unit/gram 00:00: (two) [place] ointment 00 times Medical daily. Branch nystatin Yes [id number] Apply to U nivers 100,000 6-13 area(s) 2 ity of unit/gram 00:00: (two) [place] ointment 00 times Medical daily. Branch nystatin 2018- Yes [id number] Apply to U nivers 100,000 6-13 area(s) 2 ity of unit/gram 00:00: (two) [place] ointment 00 times Medical daily. Branch nystatin 2018-2021- No [id number] Apply to Univers 100,000 6-13 11-04 area(s) 2 ity of unit/gram 00:00: 00:00 (two) [place] ointment 00 :00 times Medical daily. Branch nystatin 2018-2021- No [id number] Apply to Univers 100,000 6-13 11-04 area(s) 2 ity of unit/gram 00:00: 00:00 (two) [place] ointment 00 :00 times Medical daily. Branch traMADOL Yes [id number] 50mg Take 1 Uni vers (ULTRAM) 50 9-12 tablet by ity of mg tablet 00:00: mouth [place] 00 every 6 Medical (six) Branch hours as needed for Pain (scale 7-10). traMADOL Yes [id number] 50mg Take 1 Uni vers (ULTRAM) 50 9-12 tablet by ity of mg tablet 00:00: mouth [place] 00 every 6 Medical (six) Branch hours as needed for Pain (scale 7-10). traMADOL Yes [id number] 50mg Take 1 U nivers (ULTRAM) 50 9-12 tablet by ity of mg tablet 00:00: mouth [place] 00 every 6 Medical (six) Branch hours as needed for Pain (scale 7-10). traMADOL Yes [id number] 50mg Take 1 U nivers (ULTRAM) 50 9-12 tablet by ity of mg tablet 00:00: mouth [place] 00 every 6 Medical (six) Branch hours as needed for Pain (scale 7-10). traMADOL Yes [id number] 50mg Take 1 U nivers (ULTRAM) 50 9-12 tablet by ity of mg tablet 00:00: mouth [place] 00 every 6 Medical (six) Branch hours as needed for Pain (scale 7-10). traMADOL 2021- No [id number] 50mg Take 1 Univers (ULTRAM) 50 9-12 11-04 tablet by it y of mg tablet 00:00: 00:00 mouth [place] 00 :00 every 6 Medical (six) Branch hours as needed for Pain (scale 7-10). traMADOL 2021- No [id number] 50mg Take 1 [facility] (ULTRAM) 50 9-12 11-04 tablet by it y of mg tablet 00:00: 00:00 mouth [place] 00 :00 every 6 Medical (six) Branch hours as needed for Pain (scale 7-10). Olopatadine Yes [id number] 1[drp] Place 1 Univers (PATADAY) 5-11 9102 Drop in ity of 0.2 % 00:00: each eye [place] ophthalmic 00 daily. Medical drops Branch Olopatadine Yes [id number] 1[drp] Place 1 Univers (PATADAY) 5-11 9102 Drop in ity of 0.2 % 00:00: each eye [place] ophthalmic 00 daily. Medical drops Branch Olopatadine Yes [id number] 1[drp] Place 1 Univers (PATADAY) 5-11 9102 Drop in ity of 0.2 % 00:00: each eye [place] ophthalmic 00 daily. Medical drops Branch Olopatadine Yes [id number] 1[drp] Place 1 Univers (PATADAY) 5-11 9102 Drop in ity of 0.2 % 00:00: each eye [place] ophthalmic 00 daily. Medical drops Branch Olopatadine Yes [id number] 1[drp] Place 1 Univers ([facility]) 09-23 9102 Drop in ity of 0.2 % 00:00: each eye [place] ophthalmic 00 daily. Medical drops Branch Olopatadine 2016-2021- No [id number] 1[drp] Place 1 Univers ([facility]) 09-23 9102 Drop in ity of 0.2 % 00:00: 00:00 each eye [place] ophthalmic 00 :00 daily. Medical drops Branch Olopatadine 2016-2021- No [id number] 1[drp] Place 1 Univers ([facility]) 09-23 9102 Drop in ity of 0.2 % 00:00: 00:00 each eye [place] ophthalmic 00 :00 daily. Medical drops Branch Immunizations Ordered Filled Immunization Date Status Comments [facility] e Immunization Name Name SARS-COV-2 COVID-19 2022-03-19 Completed Unive rsity of VACCINE 12 YRS+, 00:00:00 [place] Me dical BIVALENT 0.5ML, IM, Branc h (MODERNA BOOSTER) Influenza Virus 2022-03-19 Completed Universit y of Vaccine,quad 00:00:00 [place] Medica l Im,preserve Free Branch 65+ SARS-COV-2 COVID-19 2022-03-19 Completed Unive rsity of VACCINE 12 YRS+, 00:00:00 [place] Me dical BIVALENT 0.5ML, IM, Branc h (MODERNA BOOSTER) Influenza Virus 2022-03-19 Completed Universit y of Vaccine,quad 00:00:00 [place] Medica l Im,preserve Free Branch 65+ SARS-COV-2 COVID-19 2022-03-19 Completed Unive rsity of VACCINE 12 YRS+, 00:00:00 [place] Me dical BIVALENT 0.5ML, IM, Branc h (MODERNA BOOSTER) Influenza Virus 2022-03-19 Completed Universit y of Vaccine,quad 00:00:00 [place] Medica l Im,preserve Free Branch 65+ SARS-COV-2 COVID-19 2022-03-19 Completed Unive rsity of VACCINE 12 YRS+, 00:00:00 [place] Me dical BIVALENT 0.5ML, IM, Branc h (MODERNA BOOSTER) Influenza Virus 2022-03-19 Completed Universit y of Vaccine,quad 00:00:00 [place] Medica l Im,preserve Free Branch 65+ SARS-COV-2 COVID-19 2022-03-19 Completed Unive rsity of VACCINE 12 YRS+, 00:00:00 [place] Me dical BIVALENT 0.5ML, IM, Branc h (MODERNA BOOSTER) Influenza Virus 2022-03-19 Completed Universit y of Vaccine,quad 00:00:00 [place] Medica l Im,preserve Free Branch 65+ SARS-COV-2 COVID-19 2022-03-19 Completed Unive rsity of VACCINE 12 YRS+, 00:00:00 [place] Me dical BIVALENT 0.5ML, IM, Branc h (MODERNA) Influenza Virus 2022-03-19 Completed Universit y of Vaccine,quad 00:00:00 [place] Medica l Im,preserve Free Branch 65+ SARS-COV-2 COVID-19 2022-03-19 Completed Unive rsity of VACCINE 12 YRS+, 00:00:00 [place] Me dical BIVALENT 0.5ML, IM, Branc h (MODERNA) Influenza Virus 2022-03-19 Completed Universit y of Vaccine,quad 00:00:00 [place] Medica l Im,preserve Free Branch 65+ SARS-COV-2 COVID-19 2022-03-19 Completed Unive rsity of VACCINE 12 YRS+, 00:00:00 [place] Me dical BIVALENT 0.5ML, IM, Branc h (MODERNA) Influenza Virus 2022-03-19 Completed Universit y of Vaccine,quad 00:00:00 [place] Medica l Im,preserve Free Branch 65+ SARS-COV-2 COVID-19 2022-03-19 Completed Unive rsity of VACCINE 12 YRS+, 00:00:00 [place] Me dical BIVALENT 0.5ML, IM, Branc h (MODERNA) Influenza Virus 2022-03-19 Completed [facility]ine,quad 00:00[facility] 65+ SARS-COV-2 COVID-19 2022-03-19 Completed [facility] of VACCINE 12 YRS+, 00:00:00 [place] [facility] BIVALENT 0.5ML, IM, Branc h (MODERNA-BLUE TOP) Influenza Virus 2022-03-19 Completed [facility] Vaccine,quad 00:00:00 [place] [facility] 65+ SARS-COV-2 COVID-19 2022-03-19 Completed [facility] of VACCINE 12 YRS+, 00:00:00 [place] [facility] BIVALENT 0.5ML, IM, Branc h (MODERNA BOOSTER) Influenza Virus 2022-03-19 Completed [facility] Vaccine,quad 00:00:00 [place] [facility] 65+ SARS-COV-2 COVID-19 2022-03-19 Completed [facility] of VACCINE 12 YRS+, 00:00:00 [place] [facility] BIVALENT 0.5ML, IM, Branc h (MODERNA BOOSTER) Influenza Virus 2022-03-19 Completed [facility] Vaccine,quad 00:00:00 [place] [facility] 65+ SARS-COV-2 COVID-19 2022-03-19 Completed [facility] of VACCINE 12 YRS+, 00:00:00 [place] [facility] BIVALENT 0.5ML, IM, Branc h (MODERNA BOOSTER) Influenza Virus 2022-03-19 Completed [facility] Vaccine,quad 00:00:00 [place] [facility] 65+ SARS-COV-2 COVID-19 2022-03-19 Completed [facility] of VACCINE 12 YRS+, 00:00:00 [place] [facility] BIVALENT 0.5ML, IM, Branc h (MODERNA BOOSTER) Influenza Virus 2022-03-19 Completed [facility] Vaccine,quad 00:00:00 [place] [facility] 65+ SARS-COV-2 COVID-19 2022-03-19 Completed [facility] of VACCINE 12 YRS+, 00:00:00 [place] [facility] BIVALENT 0.5ML, IM, Branc h (MODERNA BOOSTER) Influenza Virus 2022-03-19 Completed [facility] Vaccine,quad 00:00:00 [place] [facility] 65+ SARS-COV-2 COVID-19 2022-03-19 Completed [facility] of VACCINE 12 YRS+, 00:00:00 [place] [facility] BIVALENT 0.5ML, IM, Branc h (MODERNA BOOSTER) Influenza Virus 2022-03-19 Completed [facility] Vaccine,quad 00:00:00 [place] [facility] 65+ SARS-COV-2 COVID-19 2022-03-19 Completed [facility] of VACCINE 12 YRS+, 00:00:00 [place] [facility] BIVALENT 0.5ML, IM, Branc h (MODERNA BOOSTER) Influenza Virus 2022-03-19 Completed [facility] Vaccine,quad 00:00:00 [place] [facility] 65+ SARS-COV-2 COVID-19 2022-03-19 Completed [facility] of VACCINE 12 YRS+, 00:00:00 [place] [facility] BIVALENT 0.5ML, IM, Branc h (MODERNA BOOSTER) Influenza Virus 2022-03-19 Completed [facility] Vaccine,quad 00:00:00 [place] [facility] 65+ SARS-COV-2 COVID-19 2022-03-19 Completed [facility] of VACCINE 12 YRS+, 00:00:00 [place] [facility] BIVALENT 0.5ML, IM, Branc h (MODERNA BOOSTER) Influenza Virus 2022-03-19 Completed [facility] Vaccine,quad 00:00:00 [place] [facility] 65+ SARS-COV-2 COVID-19 2022-03-19 Completed [facility] of VACCINE 12 YRS+, 00:00:00 [place] [facility] BIVALENT 0.5ML, IM, Branc h (MODERNA BOOSTER) Influenza Virus 2022-03-19 Completed [facility] Vaccine,quad 00:00:00 [place] [facility] 65+ SARS-COV-2 COVID-19 2022-03-19 Completed [facility] of VACCINE 12 YRS+, 00:00:00 [place] [facility] BIVALENT 0.5ML, IM, Branc h (MODERNA BOOSTER) Influenza Virus 2022-03-19 Completed [facility] Vaccine,quad 00:00:00 [place] [facility] 65+ SARS-COV-2 COVID-19 2022-03-19 Completed [facility] of VACCINE 12 YRS+, 00:00:00 [place] [facility] BIVALENT 0.5ML, IM, Branc h (MODERNA BOOSTER) Influenza Virus 2022-03-19 Completed [facility] Vaccine,quad 00:00:00 [place] [facility] 65+ SARS-COV-2 COVID-19 2022-03-19 Completed [facility] of VACCINE 12 YRS+, 00:00:00 [place] [facility] BIVALENT 0.5ML, IM, Branc h (MODERNA BOOSTER) Influenza Virus 2022-03-19 Completed [facility] Vaccine,quad 00:00:00 [place] [facility] 65+ Influenza Virus 2021-04-01 Completed [facility] Vaccine,quad 00:00:00 [place] [facility] 65+ Influenza Virus 2021-04-01 Completed [facility] Vaccine,quad 00:00:00 [place] [facility] 65+ Influenza Virus 2021-04-01 Completed [facility] Vaccine,quad 00:00:00 [facility] 65+ Influenza Virus 2021-04-01 Completed [facility] Vaccine,quad 00:00:00 [place] [facility] 65+ Influenza Virus 2021-04-01 Completed [facility] Vaccine,quad 00:00:00 [place] [facility] 65+ Influenza Virus 2021-04-01 Completed [facility] Vaccine,quad 00:00:00 [place] [facility] 65+ Influenza Virus 2021-04-01 Completed [facility] Vaccine,quad 00:00:00 [place] [facility] 65+ Influenza Virus 2021-04-01 Completed [facility] Vaccine,quad 00:00:00 [place] [facility] 65+ Influenza Virus 2021-04-01 Completed [facility] Vaccine,quad 00:00:00 [place] [facility] 65+ Influenza Virus 2021-04-01 Completed [facility] Vaccine,quad 00:00:00 [place] [facility] 65+ Influenza Virus 2021-04-01 Completed [facility] Vaccine,quad 00:00:00 [place] [facility] 65+ Influenza Virus 2021-04-01 Completed [facility] Vaccine,quad 00:00:00 [place] [facility] 65+ Influenza Virus 2021-04-01 Completed [facility] Vaccine,quad 00:00:00 [place] [facility] 65+ Influenza Virus 2021-04-01 Completed [facility] Vaccine,quad 00:00:00 [place] [facility] 65+ Influenza Virus 2021-04-01 Completed [facility] Vaccine,quad 00:00:00 [place] [facility] 65+ Influenza Virus 2021-04-01 Completed [facility] Vaccine,quad 00:00:00 [facility] 65+ Influenza Virus 2021-04-01 Completed [facility] Vaccine,quad 00:00:00 [place] [facility] 65+ Influenza Virus 2021-04-01 Completed [facility] Vaccine,quad 00:00:00 [facility] 65+ Influenza Virus 2021-04-01 Completed [facility] Vaccine,quad 00:00:00 [place] [facility] 65+ Influenza Virus 2021-04-01 Completed [facility] Vaccine,quad 00:00:00 [place] [facility] 65+ Influenza Virus 2021-04-01 Completed [facility] Vaccine,quad 00:00:00 [place] [facility] 65+ Influenza Virus 2021-04-01 Completed [facility] Vaccine,quad 00:00:00 [place] [facility] 65+ Influenza Virus 2021-04-01 Completed [facility] Vaccine,quad 00:00:00 [place] [facility] 65+ Influenza Virus 2021-04-01 Completed [facility] Vaccine,quad 00:00:00 [place] [facility] 65+ Influenza Virus 2021-04-01 Completed [facility] Vaccine,quad 00:00:00 [place] [facility] 65+ Influenza Virus 2021-04-01 Completed [facility] Vaccine,quad 00:00:00 [place] [facility] 65+ Influenza Virus 2021-04-01 Completed [facility] Vaccine,quad 00:00:00 [place] [facility] 65+ Influenza Virus 2021-04-01 Completed [facility] Vaccine,quad 00:00:00 [place] [facility] 65+ SARS-COV-2 COVID-19 2021-01-28 Completed [facility] of MODERNA 12+ YRS 00:00:00 [place] [facility] VACCINE [facility] SARS-COV-2 COVID-19 2021-01-28 Completed [facility] of MODERNA 12+ YRS 00:00:00 [place] [facility] VACCINE [facility] SARS-COV-2 COVID-19 2021-01-28 Completed [facility] of MODERNA 12+ YRS 00:00:00 [place] [facility] VACCINE [facility] SARS-COV-2 COVID-19 2021-01-28 Completed [facility] of MODERNA 12+ YRS 00:00:00 [place] [facility] VACCINE [facility] SARS-COV-2 COVID-19 2021-01-28 Completed [facility] of MODERNA 12+ YRS 00:00:00 [place] [facility] VACCINE [facility] SARS-COV-2 COVID-19 2021-01-28 Completed [facility] of MODERNA 12+ YRS 00:00:00 [place] [facility] VACCINE [facility] SARS-COV-2 COVID-19 2021-01-28 Completed [facility] of MODERNA 12+ YRS 00:00:00 [place] [facility] VACCINE [facility] SARS-COV-2 COVID-19 2021-01-28 Completed [facility] of MODERNA 12+ YRS 00:00:00 [place] [facility] VACCINE [facility] SARS-COV-2 COVID-19 2021-01-28 Completed [facility] of MODERNA 12+ YRS 00:00:00 [place] [facility] VACCINE [facility] SARS-COV-2 COVID-19 2021-01-28 Completed [facility] MODERNA VACCINE 00:00:00 [place] [facility] SARS-COV-2 COVID-19 2021-01-28 Completed [facility] of MODERNA 12+ YRS 00:00:00 [place] [facility] VACCINE [facility] SARS-COV-2 COVID-19 2021-01-28 Completed [facility] of MODERNA 12+ YRS 00:00:00 [place] [facility] VACCINE [facility] SARS-COV-2 COVID-19 2021-01-28 Completed [facility] of MODERNA 12+ YRS 00:00:00 [place] [facility] VACCINE [facility] SARS-COV-2 COVID-19 2021-01-28 Completed [facility] of MODERNA 12+ YRS 00:00:00 [place] [facility] VACCINE [facility] SARS-COV-2 COVID-19 2021-01-28 Completed [facility] of MODERNA 12+ YRS 00:00:00 [place] [facility] VACCINE [facility] SARS-COV-2 COVID-19 2021-01-28 Completed [facility] of MODERNA 12+ YRS 00:00:00 [place] [facility] VACCINE [facility] SARS-COV-2 COVID-19 2021-01-28 Completed [facility] of MODERNA 12+ YRS 00:00:00 [place] [facility] VACCINE [facility] SARS-COV-2 COVID-19 2021-01-28 Completed [facility] of MODERNA 12+ YRS 00:00:00 [place] [facility] VACCINE [facility] SARS-COV-2 COVID-19 2021-01-28 Completed [facility] of MODERNA 12+ YRS 00:00:00 [place] [facility] VACCINE [facility] SARS-COV-2 COVID-19 2021-01-28 Completed [facility] of MODERNA 12+ YRS 00:00:00 [place] [facility] VACCINE [facility] SARS-COV-2 COVID-19 2021-01-28 Completed [facility] of MODERNA 12+ YRS 00:00:00 [place] [facility] VACCINE [facility] SARS-COV-2 COVID-19 2021-01-28 Completed [facility] of MODERNA 12+ YRS 00:00:00 [place] [facility] VACCINE [facility] SARS-COV-2 COVID-19 2021-01-28 Completed [facility] of MODERNA 12+ YRS 00:00:00 [place] [facility] VACCINE [facility] SARS-COV-2 COVID-19 2021-01-28 Completed [facility] of MODERNA 12+ YRS 00:00:00 [place] [facility] VACCINE [facility] SARS-COV-2 COVID-19 2021-01-28 Completed [facility] of MODERNA 12+ YRS 00:00:00 [place] [facility] VACCINE [facility] SARS-COV-2 COVID-19 2021-01-28 Completed [facility] of MODERNA 12+ YRS 00:00:00 [place] [facility] VACCINE [facility] SARS-COV-2 COVID-19 2021-01-28 Completed [facility] of MODERNA 12+ YRS 00:00:00 [place] [facility] VACCINE [facility] SARS-COV-2 COVID-19 2021-01-28 Completed [facility] of MODERNA 12+ YRS 00:00:00 [place] [facility] VACCINE [facility] SARS-COV-2 COVID-19 2020-06-17 Completed [facility] of MODERNA 12+ YRS 00:00:00 [place] [facility] VACCINE [facility] SARS-COV-2 COVID-19 2020-06-17 Completed [facility] of MODERNA 12+ YRS 00:00:00 [place] [facility] VACCINE [facility] SARS-COV-2 COVID-19 2020-06-17 Completed [facility] of MODERNA 12+ YRS 00:00:00 [place] [facility] VACCINE [facility] SARS-COV-2 COVID-19 2020-06-17 Completed [facility] of MODERNA 12+ YRS 00:00:00 [place] [facility] VACCINE [facility] SARS-COV-2 COVID-19 2020-06-17 Completed [facility] of MODERNA 12+ YRS 00:00:00 [place] [facility] VACCINE [facility] SARS-COV-2 COVID-19 2020-06-17 Completed [facility] of MODERNA 12+ YRS 00:00:00 [place] [facility] VACCINE [facility] SARS-COV-2 COVID-19 2020-06-17 Completed [facility] of MODERNA 12+ YRS 00:00:00 [place] [facility] VACCINE [facility] SARS-COV-2 COVID-19 2020-06-17 Completed [facility] of MODERNA 12+ YRS 00:00:00 [place] [facility] VACCINE [facility] SARS-COV-2 COVID-19 2020-06-17 Completed [facility] of MODERNA 12+ YRS 00:00:00 [place] [facility] VACCINE [facility] SARS-COV-2 COVID-19 2020-06-17 Completed [facility] of MODERNA VACCINE 00:00:00 [place] [facility] SARS-COV-2 COVID-19 2020-06-17 Completed [facility] of MODERNA 12+ YRS 00:00:00 [place] [facility] VACCINE [facility] SARS-COV-2 COVID-19 2020-06-17 Completed [facility] of MODERNA 12+ YRS 00:00:00 [place] [facility] VACCINE [facility] SARS-COV-2 COVID-19 2020-06-17 Completed [facility] of MODERNA 12+ YRS 00:00:00 [place] [facility] VACCINE [facility] SARS-COV-2 COVID-19 2020-06-17 Completed [facility] of MODERNA 12+ YRS 00:00:00 [place] [facility] VACCINE [facility] SARS-COV-2 COVID-19 2020-06-17 Completed [facility] of MODERNA 12+ YRS 00:00:00 [place] [facility] VACCINE [facility] SARS-COV-2 COVID-19 2020-06-17 Completed [facility] rs[facility] of MODERNA 12+ YRS 00:00:00 [place] [facility] VACCINE [facility] SARS-COV-2 COVID-19 2020-06-17 Completed [facility] rs[facility] of MODERNA 12+ YRS 00:00:00 [place] [facility] VACCINE [facility] SARS-COV-2 COVID-19 2020-06-17 Completed [facility] rs[facility] of MODERNA 12+ YRS 00:00:00 [place] [facility] VACCINE [facility] SARS-COV-2 COVID-19 2020-06-17 Completed [facility] of MODERNA 12+ YRS 00:00:00 [place] [facility] VACCINE [facility] SARS-COV-2 COVID-19 2020-06-17 Completed [facility] of MODERNA 12+ YRS 00:00:00 [place] [facility] VACCINE [facility] SARS-COV-2 COVID-19 2020-06-17 Completed [facility] of MODERNA 12+ YRS 00:00:00 [place] [facility] VACCINE [facility] SARS-COV-2 COVID-19 2020-06-17 Completed [facility] of MODERNA 12+ YRS 00:00:00 [place] [facility] VACCINE [facility] SARS-COV-2 COVID-19 2020-06-17 Completed [facility] of MODERNA 12+ YRS 00:00:00 [place] [facility] VACCINE [facility] SARS-COV-2 COVID-19 2020-06-17 Completed [facility] of MODERNA 12+ YRS 00:00:00 [place] [facility] VACCINE [facility] SARS-COV-2 COVID-19 2020-06-17 Completed [facility] of MODERNA 12+ YRS 00:00:00 [place] [facility] VACCINE [facility] SARS-COV-2 COVID-19 2020-06-17 Completed [facility] of MODERNA 12+ YRS 00:00:00 [place] [facility] VACCINE [facility] SARS-COV-2 COVID-19 2020-06-17 Completed [facility] of MODERNA 12+ YRS 00:00:00 [place] [facility] VACCINE [facility] SARS-COV-2 COVID-19 2020-06-17 Completed [facility] of MODERNA 12+ YRS 00:00:00 [place] [facility] VACCINE [facility] SARS-COV-2 COVID-19 2020-05-20 Completed [facility] of MODERNA 12+ YRS 00:00:00 [place] [facility] VACCINE [facility] SARS-COV-2 COVID-19 2020-05-20 Completed [facility] of MODERNA 12+ YRS 00:00:00 [place] [facility] VACCINE [facility] SARS-COV-2 COVID-19 2020-05-20 Completed [facility] of MODERNA 12+ YRS 00:00:00 [place] [facility] VACCINE [facility] SARS-COV-2 COVID-19 2020-05-20 Completed [facility] of MODERNA 12+ YRS 00:00:00 [place] [facility] VACCINE [facility] SARS-COV-2 COVID-19 2020-05-20 Completed [facility] of MODERNA 12+ YRS 00:00:00 [place] [facility] VACCINE [facility] SARS-COV-2 COVID-19 2020-05-20 Completed [facility] of MODERNA 12+ YRS 00:00:00 [place] [facility] VACCINE [facility] SARS-COV-2 COVID-19 2020-05-20 Completed [facility] of MODERNA 12+ YRS 00:00:00 [place] [facility] VACCINE [facility] SARS-COV-2 COVID-19 2020-05-20 Completed [facility] of MODERNA 12+ YRS 00:00:00 [place] [facility] VACCINE [facility] SARS-COV-2 COVID-19 2020-05-20 Completed [facility] of MODERNA 12+ YRS 00:00:00 [place] [facility] VACCINE [facility] SARS-COV-2 COVID-19 2020-05-20 Completed [facility] of MODERNA VACCINE 00:00:00 [place] [facility] SARS-COV-2 COVID-19 2020-05-20 Completed [facility] of MODERNA 12+ YRS 00:00:00 [place] [facility] VACCINE [facility] SARS-COV-2 COVID-19 2020-05-20 Completed [facility] of MODERNA 12+ YRS 00:00:00 [place] [facility] VACCINE [facility] SARS-COV-2 COVID-19 2020-05-20 Completed [facility] of MODERNA 12+ YRS 00:00:00 [place] [facility] VACCINE [facility] SARS-COV-2 COVID-19 2020-05-20 Completed [facility] of MODERNA 12+ YRS 00:00:00 [place] [facility] VACCINE [facility] SARS-COV-2 COVID-19 2020-05-20 Completed [facility] of MODERNA 12+ YRS 00:00:00 [place] [facility] VACCINE [facility] SARS-COV-2 COVID-19 2020-05-20 Completed [facility] of MODERNA 12+ YRS 00:00:00 [place] [facility] VACCINE [facility] SARS-COV-2 COVID-19 2020-05-20 Completed [facility] of MODERNA 12+ YRS 00:00:00 [place] [facility] VACCINE [facility] SARS-COV-2 COVID-19 2020-05-20 Completed [facility] of MODERNA 12+ YRS 00:00:00 [place] [facility] VACCINE [facility] SARS-COV-2 COVID-19 2020-05-20 Completed [facility] of MODERNA 12+ YRS 00:00:00 [place] [facility] VACCINE [facility] SARS-COV-2 COVID-19 2020-05-20 Completed [facility] of MODERNA 12+ YRS 00:00:00 [place] [facility] VACCINE [facility] SARS-COV-2 COVID-19 2020-05-20 Completed [facility] of MODERNA 12+ YRS 00:00:00 [place] [facility] VACCINE [facility] SARS-COV-2 COVID-19 2020-05-20 Completed [facility] of MODERNA 12+ YRS 00:00:00 [place] [facility] VACCINE [facility] SARS-COV-2 COVID-19 2020-05-20 Completed [facility] of MODERNA 12+ YRS 00:00:00 [place] [facility] VACCINE [facility] SARS-COV-2 COVID-19 2020-05-20 Completed [facility] of MODERNA 12+ YRS 00:00:00 [place] [facility] VACCINE [facility] SARS-COV-2 COVID-19 2020-05-20 Completed [facility] of MODERNA 12+ YRS 00:00:00 [place] [facility] VACCINE [facility] SARS-COV-2 COVID-19 2020-05-20 Completed [facility] of MODERNA 12+ YRS 00:00:00 [place] [facility] VACCINE [facility] SARS-COV-2 COVID-19 2020-05-20 Completed [facility] of MODERNA 12+ YRS 00:00:00 [place] [facility] VACCINE [facility] SARS-COV-2 COVID-19 2020-05-20 Completed [facility] of MODERNA 12+ YRS 00:00:00 [place] [facility] VACCINE [facility] Pneumococcal 2020-03-17 Completed [facility] f Polysaccharide, 00:00:00 [place] [facility] PPSV23 (PNEUMOVAX) Branch Pneumococcal 2020-03-17 Completed [facility] f Polysaccharide, 00:00:00 [place] [facility] PPSV23 (PNEUMOVAX) Branch Pneumococcal 2020-03-17 Completed [facility] f Polysaccharide, 00:00:00 [place] [facility] PPSV23 (PNEUMOVAX) Branch Pneumococcal 2020-03-17 Completed [facility] f Polysaccharide, 00:00:00 [place] [facility] PPSV23 (PNEUMOVAX) Branch Pneumococcal 2020-03-17 Completed [facility] f Polysaccharide, 00:00:00 [place] [facility] PPSV23 (PNEUMOVAX) Branch Pneumococcal 2020-03-17 Completed [facility] f Polysaccharide, 00:00:00 [place] [facility] PPSV23 (PNEUMOVAX) Branch Pneumococcal 2020-03-17 Completed [facility] f Polysaccharide, 00:00:00 [place] [facility] PPSV23 (PNEUMOVAX) Branch Pneumococcal 2020-03-17 Completed [facility] f Polysaccharide, 00:00:00 [place] [facility] PPSV23 (PNEUMOVAX) Branch Pneumococcal 2020-03-17 Completed [facility] f Polysaccharide, 00:00:00 [place] [facility] PPSV23 (PNEUMOVAX) Branch Pneumococcal 2020-03-17 Completed [facility] f Polysaccharide, 00:00:00 [place] [facility] PPSV23 (PNEUMOVAX) Branch Pneumococcal 2020-03-17 Completed [facility] f Polysaccharide, 00:00:00 [place] [facility] PPSV23 (PNEUMOVAX) Branch Pneumococcal 2020-03-17 Completed [facility] f Polysaccharide, 00:00:00 [place] [facility] PPSV23 (PNEUMOVAX) Branch Pneumococcal 2020-03-17 Completed [facility] f Polysaccharide, 00:00:00 [place] [facility] PPSV23 (PNEUMOVAX) Branch Pneumococcal 2020-03-17 Completed [facility] f Polysaccharide, 00:00:00 [place] [facility] PPSV23 (PNEUMOVAX) Branch Pneumococcal 2020-03-17 Completed [facility] f Polysaccharide, 00:00:00 [place] [facility] PPSV23 (PNEUMOVAX) Branch Pneumococcal 2020-03-17 Completed [facility] f Polysaccharide, 00:00:00 [place] [facility] PPSV23 (PNEUMOVAX) Branch Pneumococcal 2020-03-17 Completed [facility] f Polysaccharide, 00:00:00 [place] [facility] PPSV23 (PNEUMOVAX) Branch Pneumococcal 2020-03-17 Completed [facility] f Polysaccharide, 00:00:00 [place] [facility] PPSV23 (PNEUMOVAX) Branch Pneumococcal 2020-03-17 Completed [facility] f Polysaccharide, 00:00:00 [place] [facility] PPSV23 (PNEUMOVAX) Branch Pneumococcal 2020-03-17 Completed [facility] f Polysaccharide, 00:00:00 [place] [facility] PPSV23 (PNEUMOVAX) Branch Pneumococcal 2020-03-17 Completed [facility] f Polysaccharide, 00:00:00 [place] [facility] PPSV23 (PNEUMOVAX) Branch Pneumococcal 2020-03-17 Completed [facility] f Polysaccharide, 00:00:00 [place] [facility] PPSV23 (PNEUMOVAX) Branch Pneumococcal 2020-03-17 Completed [facility] f Polysaccharide, 00:00:00 [place] [facility] PPSV23 (PNEUMOVAX) Branch Pneumococcal 2020-03-17 Completed [facility] f Polysaccharide, 00:00:00 [place] [facility] PPSV23 (PNEUMOVAX) Branch Pneumococcal 2020-03-17 Completed [facility] f Polysaccharide, 00:00:00 [place] [facility] PPSV23 (PNEUMOVAX) Branch Pneumococcal 2020-03-17 Completed [facility] f Polysaccharide, 00:00:00 [place] [facility] PPSV23 (PNEUMOVAX) Branch Pneumococcal 2020-03-17 Completed [facility] f Polysaccharide, 00:00:00 [place] [facility] PPSV23 (PNEUMOVAX) Branch Pneumococcal 2020-03-17 Completed [facility] Polysaccharide, 00:00:00 [place] [facility] PPSV23 (PNEUMOVAX) Branch Influenza High Dose 2020-03-03 Completed [facility] 00:00:00 [facility] Influenza High Dose 2020-03-03 Completed [facility] Quad 00:00:00 [facility] Influenza High Dose 2020-03-03 Completed [facility] Quad 00[facility]00:00 [facility] Influenza High Dose 2020-03-03 Completed [facility] Quad 00:00:00 [facility] Influenza High Dose 2020-03-03 Completed [facility] Quad 00:00:00 [facility] Influenza High Dose 2020-03-03 Completed [facility] Quad 00:00:00 [facility] Influenza High Dose 2020-03-03 Completed [facility] Quad 00:00:00 [facility] Influenza High Dose 2020-03-03 Completed [facility] Quad 00:00:00 [facility] Influenza High Dose 2020-03-03 Completed [facility] Quad 00:00:00 [facility] Influenza High Dose 2020-03-03 Completed [facility] Quad 00:00:00 [facility] Influenza High Dose 2020-03-03 Completed [facility] Quad 00:00:00 [facility] Influenza High Dose 2020-03-03 Completed [facility] Quad 00:00:00 [facility] Influenza High Dose 2020-03-03 Completed [facility] Quad 00:00:00 [facility] Influenza High Dose 2020-03-03 Completed [facility] Quad 00:00:00 [facility] Influenza High Dose 2020-03-03 Completed [facility] Quad 00[facility]00:00 [facility] Influenza High Dose 2020-03-03 Completed [facility] Quad 00:00:00 [facility] Influenza High Dose 2020-03-03 Completed [facility] Quad 00:00:00 [facility] Influenza High Dose 2020-03-03 Completed [facility] Quad 00:00:00 [facility] Influenza High Dose 2020-03-03 Completed [facility] of Quad 00:00:00 [facility] Influenza High Dose 2020-03-03 Completed [facility] Quad 00:00:00 [facility] Influenza High Dose 2020-03-03 Completed [facility] Quad 00:00:00 [facility] Influenza High Dose 2020-03-03 Completed [facility] Quad 00:00:00 [facility] Influenza High Dose 2020-03-03 Completed [facility] Quad 00[facility]00:00 [facility] Influenza High Dose 2020-03-03 Completed [facility] Quad 00:00:00 [facility] Influenza High Dose 2020-03-03 Completed [facility] Quad 00:00:00 [facility] Influenza High Dose 2020-03-03 Completed [facility] Quad 00:00:00 [facility] Influenza High Dose 2020-03-03 Completed [facility] Quad 00:00:00 [facility] Influenza High Dose 2020-03-03 Completed [facility] Quad 00:00:00 [facility] Influenza Virus 2019-02-15 Completed [facility] Vaccine [facility] .5 mL 00:00:00 [facility] Influenza Virus 2019-02-15 Completed [facility] Vaccine [facility] .5 mL 00:00:00 [facility] 6[facility] Influenza Virus 2019-02-15 Completed [facility] Vaccine [facility] .5 mL 00:00:00 [facility] 6[facility] Influenza Virus 2019-02-15 Completed [facility] Vaccine [facility] .5 mL 00:00:00 [facility] 6[facility] Influenza Virus 2019-02-15 Completed [facility] Vaccine [facility] .5 mL 00:00:00 [facility] Influenza Virus 2019-02-15 Completed [facility] Vaccine [facility] .5 mL 00:00:00 [facility] Influenza Virus 2019-02-15 Completed [facility] Vaccine [facility] .5 mL 00:00:00 [facility] 6[facility] Influenza Virus 2019-02-15 Completed [facility] Vaccine [facility] .5 mL 00:00:00 [facility] Influenza Virus 2019-02-15 Completed [facility] Vaccine [facility] .5 mL 00:00:00 [facility] Influenza Virus 2019-02-15 Completed [facility] Vaccine [facility] .5 mL 00:00:00 [facility] Influenza Virus 2019-02-15 Completed [facility] Vaccine [facility] .5 mL 00:00:00 [facility] Influenza Virus 2019-02-15 Completed [facility] Vaccine [facility] .5 mL 00:00:00 [facility] Influenza Virus 2019-02-15 Completed [facility] Vaccine [facility] .5 mL 00:00:00 [facility] Influenza Virus 2019-02-15 Completed Universit y of Vaccine Quad .5 mL 00:00:00 [facility] Influenza Virus 2019-02-15 Completed [facility] .5 mL 00:00:00 [facility] Influenza Virus 2019-02-15 Completed [facility]it y of Vaccine [facility] .5 mL 00:00:00 [facility] Influenza Virus 2019-02-15 Completed [facility]it y of [facility]ine [facility] .5 mL 00:00:00 [facility] Influenza Virus 2019-02-15 Completed [facility]it y of Vaccine [facility] .5 mL 00:00:00 [facility] Influenza Virus 2019-02-15 Completed [facility]it y of Vaccine [facility] .5 mL 00:00:00 [facility] Influenza Virus 2019-02-15 Completed [facility]it y of Vaccine [facility] .5 mL 00:00:00 [facility] Influenza Virus 2019-02-15 Completed [facility]it y of Vaccine [facility] .5 mL 00:00:00 [facility] Influenza Virus 2019-02-15 Completed [facility]it y of Vaccine [facility] .5 mL 00:00:00 [facility] Influenza Virus 2019-02-15 Completed [facility]it y of Vaccine Quad .5 mL 00:00:00 [facility] Influenza Virus 2019-02-15 Completed [facility]it y of Vaccine Quad .5 mL 00:00:00 [facility] Influenza Virus 2019-02-15 Completed [facility]it y of Vaccine [facility] .5 mL 00:00:00 [facility] Influenza Virus 2019-02-15 Completed [facility]it y of [facility] .5 mL 00:00:00 [facility] Influenza Virus 2019-02-15 Completed [facility]it y of [facility]ine [facility] .5 mL 00:00:00 [facility] Influenza Virus 2019-02-15 Completed [facility]it y of Vaccine Quad .5 mL 00:00:00 [facility] Influenza Virus 2018-03-03 Completed [facility]it y of Vaccine [facility] .5 mL 00:00:00 [facility] Influenza Virus 2018-03-03 Completed [facility]it y of Vaccine Quad .5 mL 00:00:00 [facility] Influenza Virus 2018-03-03 Completed [facility]it y of Vaccine [facility] .5 mL 00:00:00 [facility] Influenza Virus 2018-03-03 Completed [facility]it y of Vaccine Quad .5 mL 00:00:00 [facility] Influenza Virus 2018-03-03 Completed [facility]it y of Vaccine Quad .5 mL 00:00:00 [facility] Influenza Virus 2018-03-03 Completed [facility]it y of Vaccine Quad .5 mL 00:00:00 [facility] Influenza Virus 2018-03-03 Completed [facility]it y of Vaccine Quad .5 mL 00:00:00 [facility] Influenza Virus 2018-03-03 Completed [facility]it y of Vaccine Quad .5 mL 00:00:00 [facility] Influenza Virus 2018-03-03 Completed [facility]it y of Vaccine [facility] .5 mL 00:00:00 [facility] Influenza Virus 2018-03-03 Completed [facility]it y of Vaccine [facility] .5 mL 00:00:00 [facility] Influenza Virus 2018-03-03 Completed [facility]it y of Vaccine [facility] .5 mL 00:00:00 [facility] Influenza Virus 2018-03-03 Completed [facility]it y of Vaccine [facility] .5 mL 00:00:00 [facility] Influenza Virus 2018-03-03 Completed [facility]it y of Vaccine [facility] .5 mL 00:00:00 [facility] Influenza Virus 2018-03-03 Completed [facility]it y of Vaccine [facility] .5 mL 00:00:00 [facility] Influenza Virus 2018-03-03 Completed [facility]it y of Vaccine [facility] .5 mL 00:00:00 [facility] Influenza Virus 2018-03-03 Completed [facility]it y of Vaccine [facility] .5 mL 00:00:00 [facility] Influenza Virus 2018-03-03 Completed [facility]it y of Vaccine [facility] .5 mL 00:00:00 [facility] Influenza Virus 2018-03-03 Completed [facility]it y of Vaccine [facility] .5 mL 00:00:00 [facility] Influenza Virus 2018-03-03 Completed [facility]it y of Vaccine Quad .5 mL 00:00:00 [facility] Influenza Virus 2018-03-03 Completed [facility]it y of Vaccine Quad .5 mL 00:00:00 [facility] Influenza Virus 2018-03-03 Completed [facility]it y of Vaccine [facility] .5 mL 00:00:00 [facility] Influenza Virus 2018-03-03 Completed [facility]it y of Vaccine Quad .5 mL 00:00:00 [facility] Influenza Virus 2018-03-03 Completed [facility]it y of Vaccine Quad .5 mL 00:00:00 [facility] Influenza Virus 2018-03-03 Completed [facility]it y of Vaccine Quad .5 mL 00:00:00 [facility] Influenza Virus 2018-03-03 Completed [facility]it y of Vaccine [facility] .5 mL 00:00:00 [facility] Influenza Virus 2018-03-03 Completed [facility]it y of Vaccine [facility] .5 mL 00:00:00 [facility] Influenza Virus 2018-03-03 Completed [facility]it y of Vaccine [facility] .5 mL 00:00:00 [facility] Influenza Virus 2018-03-03 Completed [facility]it y of Vaccine Quad .5 mL 00:00:00 [facility] Influenza Virus 2017-02-24 Completed [facility] Vaccine [facility] IM 00:00:00 [facility] Multi-dose 6+ MO [facility] Influenza Virus 2017-02-24 Completed [facility] of Vaccine [facility] IM 00:00:00 [facility] Multi-dose 6+ MO [facility] Influenza Virus 2017-02-24 Completed [facility] of Vaccine Quad IM 00:00:00 [facility] Multi-dose 6+ MO [facility] Influenza Virus 2017-02-24 Completed [facility] of Vaccine Quad IM 00:00:00 [facility] Multi-dose 6+ MO [facility] Influenza Virus 2017-02-24 Completed [facility] of Vaccine Quad IM 00:00:00 [facility] Multi-dose 6+ MO [facility] Influenza Virus 2017-02-24 Completed [facility] of Vaccine Quad IM 00:00:00 [facility] Multi-dose 6+ MO [facility] Influenza Virus 2017-02-24 Completed [facility] of Vaccine Quad IM 00:00:00 [facility] Multi-dose 6+ MO Branch Influenza Virus 2017-02-24 Completed [facility] of Vaccine Quad IM 00:00:00 [facility] Multi-dose 6+ MO Branch Influenza Virus 2017-02-24 Completed [facility] of Vaccine Quad IM 00:00:00 [facility] Multi-dose 6+ MO Branch Influenza Virus 2017-02-24 Completed [facility] of Vaccine Quad IM 00:00:00 [facility] Multi-dose 6+ MO Branch Influenza Virus 2017-02-24 Completed [facility] of Vaccine Quad IM 00:00:00 [facility] Multi-dose 6+ MO Branch Influenza Virus 2017-02-24 Completed [facility] of Vaccine Quad IM 00:00:00 [facility] Multi-dose 6+ MO Branch Influenza Virus 2017-02-24 Completed [facility] of Vaccine Quad IM 00:00:00 [facility] Multi-dose 6+ MO Branch Influenza Virus 2017-02-24 Completed [facility] of Vaccine Quad IM 00:00:00 [facility] Multi-dose 6+ MO Branch Influenza Virus 2017-02-24 Completed [facility] of Vaccine Quad IM 00:00:00 [facility] Multi-dose 6+ MO Branch Influenza Virus 2017-02-24 Completed [facility] of Vaccine Quad IM 00:00:00 [facility] Multi-dose 6+ MO [facility] Influenza Virus 2017-02-24 Completed [facility] of Vaccine Quad IM 00:00:00 [facility] Multi-dose 6+ MO Branch Influenza Virus 2017-02-24 Completed [facility] of Vaccine Quad IM 00:00:00 [facility] Multi-dose 6+ MO Branch Influenza Virus 2017-02-24 Completed [facility] of Vaccine Quad IM 00:00:00 [facility] Multi-dose 6+ MO Branch Influenza Virus 2017-02-24 Completed [facility] of Vaccine Quad IM 00:00:00 [facility] Multi-dose 6+ MO Branch Influenza Virus 2017-02-24 Completed [facility] of Vaccine Quad IM 00:00:00 [facility] Multi-dose 6+ MO Branch Influenza Virus 2017-02-24 Completed [facility] of Vaccine Quad IM 00:00:00 [facility] Multi-dose 6+ MO Branch Influenza Virus 2017-02-24 Completed [facility]it y of Vaccine Quad IM 00:00:00 [facility] Multi-dose 6+ MO Branch Influenza Virus 2017-02-24 Completed [facility] y of Vaccine Quad IM 00:00:00 [facility] Multi-dose 6+ MO [facility] Influenza Virus 2017-02-24 Completed [facility]it y of Vaccine Quad IM 00:00:00 [facility] Multi-dose 6+ MO Branch Influenza Virus 2017-02-24 Completed Universit y of Vaccine Quad IM 00:00:00 [facility] ical Multi-dose 6+ MO Branch Influenza Virus 2017-02-24 Completed Universit y of Vaccine Quad IM 00:00:00 [facility] ical Multi-dose 6+ MO Branch Influenza Virus 2017-02-24 Completed Universit y of Vaccine Quad IM 00:00:00 [facility] Multi-dose 6+ MO Branch Pneumococcal 13 2016-08-16 Completed Universit y of Conjugate, PCV13 00:00:00 [facility] dical (Prevnar 13) Branch TDAP (ADACEL) 2016-08-16 Completed University of VACCINE 00:00:00 [facility] Pneumococcal 13 2016-08-16 Completed Universit y of Conjugate, PCV13 00:00:00 [facility] dical (Prevnar 13) Branch TDAP (ADACEL) 2016-08-16 Completed University of VACCINE 00:00:00 [facility] Pneumococcal 13 2016-08-16 Completed Universit y of Conjugate, PCV13 00:00:00 [facility] dical (Prevnar 13) Branch TDAP (ADACEL) 2016-08-16 Completed University of VACCINE 00:00:00 [facility] Pneumococcal 13 2016-08-16 Completed Universit y of Conjugate, PCV13 00:00:00 [facility] dical (Prevnar 13) Branch TDAP (ADACEL) 2016-08-16 Completed University of VACCINE 00:00:00 [facility] Pneumococcal 13 2016-08-16 Completed Universit y of Conjugate, PCV13 00:00:00 [facility] dical (Prevnar 13) Branch TDAP (ADACEL) 2016-08-16 Completed University of VACCINE 00:00:00 [facility] Pneumococcal 13 2016-08-16 Completed Universit y of Conjugate, PCV13 00:00:00 [facility] dical (Prevnar 13) Branch TDAP (ADACEL) 2016-08-16 Completed University of VACCINE 00:00:00 [facility] Pneumococcal 13 2016-08-16 Completed Universit y of Conjugate, PCV13 00:00:00 [facility] dical (Prevnar 13) Branch TDAP (ADACEL) 2016-08-16 Completed University of VACCINE 00:00:00 [facility] Pneumococcal 13 2016-08-16 Completed Universit y of Conjugate, PCV13 00:00:00 [facility] dical (Prevnar 13) Branch TDAP (ADACEL) 2016-08-16 Completed University of VACCINE 00:00:00 [facility] Pneumococcal 13 2016-08-16 Completed Universit y of Conjugate, PCV13 00:00:00 [facility] dical (Prevnar 13) Branch TDAP (ADACEL) 2016-08-16 Completed University of VACCINE 00:00:00 [facility] Pneumococcal 13 2016-08-16 Completed Universit y of Conjugate, PCV13 00:00:00 [facility] dical (Prevnar 13) Branch TDAP (ADACEL) 2016-08-16 Completed University of VACCINE 00:00:00 [facility] Pneumococcal 13 2016-08-16 Completed Universit y of Conjugate, PCV13 00:00:00 [facility] dical (Prevnar 13) Branch TDAP (ADACEL) 2016-08-16 Completed University of VACCINE 00:00:00 [facility] Pneumococcal 13 2016-08-16 Completed Universit y of Conjugate, PCV13 00:00:00 [facility] dical (Prevnar 13) Branch TDAP (ADACEL) 2016-08-16 Completed University of VACCINE 00:00:00 [facility] Pneumococcal 13 2016-08-16 Completed Universit y of Conjugate, PCV13 00:00:00 [facility] dical (Prevnar 13) Branch TDAP (ADACEL) 2016-08-16 Completed University of VACCINE 00:00:00 [facility] Pneumococcal 13 2016-08-16 Completed Universit y of Conjugate, PCV13 00:00:00 [facility] dical (Prevnar 13) Branch TDAP (ADACEL) 2016-08-16 Completed University of VACCINE 00:00:00 [facility] Pneumococcal 13 2016-08-16 Completed Universit y of Conjugate, PCV13 00:00:00 [facility] dical (Prevnar 13) Branch TDAP (ADACEL) 2016-08-16 Completed University of VACCINE 00:00:00 [facility] Pneumococcal 13 2016-08-16 Completed Universit y of Conjugate, PCV13 00:00:00 [facility] dical (Prevnar 13) Branch TDAP (ADACEL) 2016-08-16 Completed University of VACCINE 00:00:00 [facility] Pneumococcal 13 2016-08-16 Completed Universit y of Conjugate, PCV13 00:00:00 [facility] dical (Prevnar 13) Branch TDAP (ADACEL) 2016-08-16 Completed University of VACCINE 00:00:00 [facility] Pneumococcal 13 2016-08-16 Completed Universit y of Conjugate, PCV13 00:00:00 [facility] dical (Prevnar 13) Branch TDAP (ADACEL) 2016-08-16 Completed University of VACCINE 00:00:00 [facility] Pneumococcal 13 2016-08-16 Completed Universit y of Conjugate, PCV13 00:00:00 [facility] dical (Prevnar 13) Branch TDAP (ADACEL) 2016-08-16 Completed University of VACCINE 00:00:00 [facility] Pneumococcal 13 2016-08-16 Completed Universit y of Conjugate, PCV13 00:00:00 [facility] dical (Prevnar 13) Branch TDAP (ADACEL) 2016-08-16 Completed University of VACCINE 00:00:00 [facility] Pneumococcal 13 2016-08-16 Completed Universit y of Conjugate, PCV13 00:00:00 [facility] dical (Prevnar 13) Branch TDAP (ADACEL) 2016-08-16 Completed University of VACCINE 00:00:00 [facility] Pneumococcal 13 2016-08-16 Completed Universit y of Conjugate, PCV13 00:00:00 [facility] dical (Prevnar 13) Branch TDAP (ADACEL) 2016-08-16 Completed University of VACCINE 00:00:00 [facility] Pneumococcal 13 2016-08-16 Completed Universit y of Conjugate, PCV13 00:00:00 [facility] dical (Prevnar 13) Branch TDAP (ADACEL) 2016-08-16 Completed University of VACCINE 00:00:00 [facility] Pneumococcal 13 2016-08-16 Completed Universit y of Conjugate, PCV13 00:00:00 [facility] dical (Prevnar 13) Branch TDAP (ADACEL) 2016-08-16 Completed University of VACCINE 00:00:00 [facility] Pneumococcal 13 2016-08-16 Completed Universit y of Conjugate, PCV13 00:00:00 [facility] dical (Prevnar 13) Branch TDAP (ADACEL) 2016-08-16 Completed University of VACCINE 00:00:00 [facility] Pneumococcal 13 2016-08-16 Completed Universit y of Conjugate, PCV13 00:00:00 [facility] dical (Prevnar 13) Branch TDAP (ADACEL) 2016-08-16 Completed University of VACCINE 00:00:00 [facility] Pneumococcal 13 2016-08-16 Completed Universit y of Conjugate, PCV13 00:00:00 [facility] dical (Prevnar 13) Branch TDAP (ADACEL) 2016-08-16 Completed University of VACCINE 00:00:00 [facility] Pneumococcal 13 2016-08-16 Completed Universit y of Conjugate, PCV13 00:00:00 [facility] dical (Prevnar 13) Branch TDAP (ADACEL) 2016-08-16 Completed University of VACCINE 00:00:00 [facility] Vital Signs Vital Name Observation Time Observation Value Comments Source Systolic blood 2022-08-13 18:41:00 148 mm[Hg] Univer sity of pressure [facility] Diastolic blood 2022-08-13 18:41:00 88 mm[Hg] Unive rsity of [facility] Heart rate 2022-08-13 18:41:00 90 /min Universi ty of [facility] Body temperature 2022-08-13 18:40:00 35.83 Larissa [facility] Respiratory rate 2022-08-13 18:40:00 16 /min [facility] ersity [facility] Body height 2022-08-13 18:40:00 180.[address] [facility] Body weight 2022-08-13 18:40:00 131.588 kg Universi ty [facility] BMI 2022-08-13 18:40:00 40.46 kg/m2 Universi ty [facility] Oxygen saturation in 2022-08-13 18:40:00 98 /min [facility] Arterial blood by [facility] Pulse oximetry Branch Systolic blood 2022-06-21 14:05:00 127 mm[Hg] Univer sity of [facility] Diastolic blood 2022-06-21 14:05:00 75 mm[Hg] Unive rsity of [facility] Heart rate 2022-06-21 14:05:00 79 /min [facility]i ty of [facility] Body temperature 2022-06-21 14:05:00 36.61 Larissa [facility] Body height 2022-06-21 14:05:00 180[address] [facility] Body weight 2022-06-21 14:05:[address] [facility] BMI 2022-06-21 14:05:00 38.91 kg/m2 [facility]i [facility] Oxygen saturation in 2022-06-21 14:05:00 97 /min University of Arterial blood by [facility] Pulse oximetry Branch Systolic blood 2022-03-19 20:18:00 125 mm[Hg] Univer sity of pressure [facility] Diastolic blood 2022-03-19 20:18:00 84 mm[Hg] Unive rsity of pressure [facility] Heart rate 2022-03-19 20:17:00 83 /min [facility]i [facility] Body temperature 2022-03-19 20:17:00 36.67 Larissa Univ ersity of [facility] Body height 2022-03-19 20:17:00 180.3 cm [facility] Body weight 2022-03-19 20:17:00 124.739 kg [facility] BMI 2022-03-19 20:17:00 38.35 kg/m2 [facility] Oxygen saturation in 2022-03-19 20:17:00 96 /min University of Arterial blood by [facility] Pulse oximetry Branch Systolic blood 2022-01-06 13:45:00 157 mm[Hg] Univer sity of [facility] Diastolic blood 2022-01-06 13:45:00 116 mm[Hg] Unive rsity of [facility] Heart rate 2022-01-06 13:45:00 75 /min [facility] Body temperature 2022-01-06 13:44:00 36.22 Larissa Univ ersity of [facility] Respiratory rate 2022-01-06 13:44:00 16 /min Univ ersity of [facility] Body height 2022-01-06 13:44:00 180.3 cm [facility] Body weight 2022-01-06 13:44:00 113.853 kg [facility] BMI 2022-01-06 13:44:00 35.01 kg/m2 [facility] Oxygen saturation in 2022-01-06 13:44:00 98 /min University of Arterial blood by [facility] Pulse oximetry Branch Procedures Procedure Date / Time Performing Clinician Source Performed ASSIGNMENT OF BENEFITS 2022-09-10 15:50:09 Doctor Unassigned, No [facility] Name Medical Branch REFERRAL- 2022-05-24 06:01:00 Doctor Unassigned, No [facility] REQUEST/RESPONSE Name Medical [place] EXTERNAL PROVIDER 2022-04-21 06:01:00 Doctor Unassigned, No [facility] RECORDS Name [facility] AUTHORIZATION TO RELEASE 2022-04-06 06:01:00 Doctor Unassigned, No [facility] PHI TO [facility] Name Medical Branch FLU 2022-03-19 21:04:38 Alejandro [facility] o f [place] VACC(),65+YR,0. Medical Branch 5 ML,IM,ADJUVANTED,QUAD([place] UAD) SARS-COV-2 COVID-19 2022-03-19 20:56:18 Ann Roth [facility] VACCINE 12 YRS+, Medical Branch BIVALENT 0.5ML, IM (MODERNA BOOSTER) ASSIGNMENT OF BENEFITS 2022-03-19 20:03:06 Doctor Unassigned, No [facility] REFERRAL- 2022-01-04 05:01:00 Doctor Unassigned, No [facility] REQUEST/RESPONSE Name [facility] Encounters Start End Encounter Admission Attending Care Care Encounter Source Date/Time Date/Time Type Type Clinicians Facility Department ID 2022-02-11 Outpatient CHW CHW [id number] [facility] 13:47:18 0210 [facility] 2022-12-20 2022-12-20 Outpatient R ANN ROTH [facility] [id number] Univers 14:00:00 14:00:00 ANN ROTH [facility] 2022-10-14 2022-10-14 Outpatient DMG DMG [id number] [facility] 00:00:00 00:00:00 [id number] Med[facility] l [facility] 2022-09-27 2022-09-[address] [facility] [id number] Univers 00:00:00 00:00:00 [facility] [id number] [facility] [id number] Mendel as ANTONY?BLEA [id number] [place] mic[place] [address] MEDICAL OFFICE BUILDING 2022-09-14 2022-09-[address] [facility] [id number] Univers 00:00:00 00:00:00 Veronique MADSEN [id number] it [facility] [id number] [id number] [place] mic[place] [address] [place] 2022-09-10 2022-09-10 Outpatient R ROB [facility] [id number] Univers 10:52:15 23:59:00 VERONIQUE itterri [facility] 2022-09-10 2022-09-10 [facility] [id number] Univers 10:52:15 23:59:00 Encounter Veronique METZ [id number] ity [id number] [id number] [facility] [address] [place] 2022-09-10 2022-09-10 Orders Doctor JAMES [id number] Univers 00:00:00 00:00:00 Only Unassigned, NOLAN [id number] [facility]y [facility] [place] [facility] [id number] Mendel as [id number] [facility] [address] [place] 2022-09-07 2022-09-[address] [facility] [id number] Univers 11:30:00 11:30:00 KATYA tripathi [facility] 2022-09-06 2022-09-06 Outpatient Odalys RIVAS [facility] [id number] Univers 11:00:00 11:00:00 VERONIQUE tripathi [facility] 2022-09-03 2022-09-03 [facility] [id number] Univers 00:00:00 00:00:00 [facility] [id number] ity of [place] [id number] Mendel as ANTONY?BLEA [id number] [place] chazjose r KNEY [address] MEDICAL OFFICE BUILDING 2022-09-01 2022-09-01 [facility] [id number] Univers 00:00:00 00:00:00 [facility] [id number] [facility] [id number] Mendel as ANTONY?BLEA [id number] [facility] [address] [place] MEDICAL OFFICE [facility] 2022-08-27 2022-08-27 Outpatient FOG_Jones_H AOSM AOSM [id number] Lizbet 00:00:00 00:00:00 Iman [id number] [facility]op e [facility] 2022-08-13 2022-08-13 Outpatient Odalys RIVAS [facility] [id number] Univers 16:15:00 16:15:00 VERONIQUE tripathi [facility] 2022-08-13 2022-08-13 Outpatient Odalys RIVAS [facility] [id number] Univers 14:45:00 14:45:00 VERONIQUE tripathi [facility] 2022-08-13 2022-08-13 Outpatient Odalys RIVAS [facility] [id number] Univers 13:45:00 14:12:06 VERONIQUE tripathi [facility] 2022-08-13 2022-08-13 Office [facility] [id number] Univers 13:45:00 14:12:06 Visit Veronique MADSEN [id number] it y [id number] [id number] [address] 2022-07-28 2022-07-28 Outpatient Odalys RIVAS [facility] [id number] Univers 08:45:00 08:45:00 VERONIQUE tripathi [facility] 2022-07-09 2022-07-09 Outpatient Odalys RIVAS [facility] [id number] Univers 11:15:00 11:15:00 VERONIQUE tripathi [facility] 2022-06-21 2022-06-21 Recreational Aide Lab, Ang - Von [facility] [id number] Univers 09:15:00 09:30:00 [facility] [id number] ity of [place] [id number] Mendel as ANTONY?BLEA [id number] [facility] [address] [facility] OFFICE [facility] 2022-06-21 2022-06-21 Outpatient R ALEJANDRO [facility] [id number] Univers 08:00:00 09:01:[address] [facility] 2022-06-21 2022-06-[address] [facility] [id number] Univers 08:00:00 09:01:04 Visit Ann HEALTH [id number] [facility] [id number] Mendel as ANTONY?BLEA [id number] [address] OFFICE [facility] 2022-05-25 2022-05-[address] [facility] [id number] Univers 00:00:00 00:00:00 Unassigned, HEALTH [id number] ity of [place] [facility] [id number] Mendel as ANTONY?BLEA [id number] [address] OFFICE [facility] 2022-05-24 2022-05-24 Orders Doctor JAMES [id number] Univers 00:00:00 00:00:00 Only Unassigned, NOLAN 350.1.13.10 ity of [facility] 4.2.7.2.686 Mendel as [id number] [address] 2022-05-04 2022-05-[address] [facility] 1.2.840.114 [id number] Univers 00:00:00 00:00:00 Katya HEALTH 350.1.13.10 it y [facility] 4.2.7.2.686 Mendel as ANTONY?BLEA [id number] [address] OFFICE [facility] 2022-04-21 2022-04-21 Orders Doctor JAMES 1.2.840.114 [id number] Univers 00:00:00 00:00:00 Only Unassigned, NOLAN 350.1.13.10 ity of [facility] 4.2.7.2.686 Mendel as [id number] [address] 2022-04-15 2022-04-[address] [facility] 1.2.840.114 [id number] Univers 00:00:00 00:00:00 Unassigned, HEALTH 350.1.13.10 ity of [place] [facility] 4.2.7.2.686 Mendel as ANTONY?BLEA [id number] [facility] [address] MEDICAL OFFICE [facility] 2022-04-06 2022-04-06 Orders Doctor JAMES 1.2.840.114 [id number] Univers 00:00:00 00:00:00 Only Unassigned, NOLAN 350.1.13.10 ity of [place] [facility] 4.2.7.2.686 Mendel as [id number] [address] 2022-04-05 2022-04-[address] [facility] 1.2.840.114 [id number] Univers 00:00:00 00:00:00 Secure Msg [facility] 350.1.13.10 ity of [place] 4.2.7.2.686 Mendel as ANTONY?BLEA [id number] [address] MEDICAL OFFICE [facility] 2022-04-05 2022-04-[address] [facility] 1.2.137.585 [id number] Univers 00:00:00 00:00:00 Jah B PRIMARY 350.1.13.10 i ty [place] [id number] [facility] [address] 2022-03-22 2022-03-22 Recreational Aide Lab, Ang - [facility] 1.2.840.1 14 [id number] Univers 08:00:00 08:15:00 Visit Alejandro [facility] 350.1.13.10 ity of [place] 4.2.7.2.686 Mendel as ANTONY?BLEA [id number] [facility] [address] MEDICAL OFFICE [facility] 2022-03-22 2022-03-22 Outpatient Odalys ROTH [facility] [id number] Univers 08:00:00 08:00:00 [facility] 2022-03-19 2022-03-19 Outpatient Odalys ROTH [facility] [id number] Univers 15:20:00 16:20:19 [facility] 2022-03-19 2022-03-19 Office [facility] 1.2.840.114 [id number] Univers 15:20:00 16:20:19 Visit Ann HEALTH 350.1.13.10 ity of [place] 4.2.7.2.686 Mendel as ANTONY?BLEA [id number] [address] OFFICE [facility] 2022-03-19 2022-03-19 Orders Doctor RAMIREZ 1.2.840.114 [id number] Univers 00:00:00 00:00:00 Only Unassigned, NOLAN 350.1.13.10 ity of [place] [facility] 4.2.7.2.686 Mendel as [id number] [address] 2022-03-16 2022-03-16 Refrhea [facility] 1.2.840.114 [id number] Univers 00:00:00 00:00:00 Wondiful A HEALTH 350.1.13.10 ity of [place] 4.2.7.2.686 Mendel as ANTONY?BLEA [id number] [address] 2022-03-11 2022-03-11 Refill [facility] 1.2.840.114 [id number] Univers 00:00:00 00:00:00 Veronique A PRIMARY 350.1.13.10 it y [place] [id number] [address] 2022-01-06 2022-01-06 Outpatient R ROB [facility] [id number] Univers 09:15:00 09:32:[address] [facility] 2022-01-06 2022-01-06 Office [facility] 1.2.840.114 [id number] Univers 09:15:00 09:32:38 Visit Veronique A PRIMARY 350.1.13.10 it y of [place]2.[place] [id number] [address] 2022-01-04 2022-01-04 Orders Doctor RAMIREZ 1.2.840.114 [id number] Univers 00:00:00 00:00:00 Only Unassigned, NOLAN 350.1.13.10 ity of [facility] 4.2.7.2.686 Mendel as [id number] [address] 2021-12-25 2021-12-[address] [facility] [id number] Univers 08:30:00 08:30:00 KATYA tripathi [facility] 2021-12-25 2021-12-[address] [facility] [id number] Univers 08:30:00 08:30:00 KATYA tripathi [facility] 2021-12-25 2021-12-[address] [facility] [id number] Univers 08:30:00 08:30:00 KATYA tripathi [facility] 2021-12-25 2021-12-[address] [facility] [id number] Univers 08:30:00 08:30:00 KATYA tripathi [facility] 2021-12-16 2021-12-16 Outpatient Odalys RIVAS [facility] [id number] Univers 11:15:00 11:15:00 VERONIQUE neelyterri [facility] 2021-12-16 2021-12-16 Outpatient Odalys RIVAS [facility] [id number] Univers 08:45:00 08:45:00 VERONIQUE itterri [facility] 2021-12-08 2021-12-08 Outpatient Odalys RIVAS [facility] [id number] Univers 11:15:00 11:15:00 VERONIQUE tripathi [facility] 2021-12-04 2021-12-04 Outpatient Odalys RIVAS [facility] [id number] Univers 11:15:00 11:15:00 VERONIQUE tripathi [facility] 2021-11-19 2021-11-19 Hitesh [facility] 1.2.840.114 [id number] Univers 00:00:00 00:00:00 Katya [facility] 350.1.13.10 it y of [place] 4.2.7.2.686 Mendel as ANTONY?BLEA [id number] [address] MEDICAL OFFICE BUILDING 2021-10-03 2021-10-[address] [facility] 1.2.840.114 [id number] Univers 00:00:00 00:00:00 Veronique A PRIMARY 350.1.13.10 it y of [place]2.[place] [id number] [address] 2021-09-30 2021-09-30 Outpatient R LATOYA [facility] [id number] Univers 14:00:00 23:59:00 MIRNA tripathi [facility] 2021-09-30 2021-09-30 Office [facility] 1.2.245.184 [id number] Univers 14:45:00 14:45:00 Visit Mirna [facility] 350.1.13.10 it y of [place] 4.2.7.2.686 Mendel as ANTONY?BLEA [id number] [address] MEDICAL OFFICE [facility] 2021-09-30 2021-09-30 [facility] [id number] Univers 14:45:00 13:57:28 MIRNA florindaterri [facility] 2021-09-20 2021-09-20 Refill [facility]NEW [facility] 1.2.840.114 [id number] [facility] 00:00:00 00:00:00 Veronique A PRIMARY 350.1.13.10 it y of [place] 4[place]2.7.2.[place] [id number] [address] 2021-09-04 2021-09-04 Recreational Aide Pcp-Lab [facility] 1.2.840.114 [id number] Univers 11:45:00 12:00:00 Visit Veronique Rivas PRIMARY 350.1.13.10 ity of [place]2.[place].2.[place] [id number] [address] 2021-09-04 2021-09-04 Outpatient Odalys RIVAS [facility] [id number] Univers 10:45:00 11:41:43 VERONIQUE ity [facility] 2021-09-04 2021-09-04 Office [facility]NEW [facility] 1.2.840.114 [id number] Univers 10:45:00 11:41:43 Visit Veronique A PRIMARY 350.1.13.10 it y of [place] 4[place]2.7.2.[place] [id number] Va [address] 2021-08-31 2021-08-31 Hitesh Rivas LALATONYA 1.2.840.114 [id number] Univers 00:00:00 00:00:00 Veronique Dixon [facility] 350.1.13.10 it y of [place] 4[place]2.7.2.[place] [id number] [address] 2021-08-28 2021-08-28 Outpatient [facility]ys [facility] [id number] Univers 11:15:00 11:15:00 VERONIQUE tripathi [facility] 2021-08-25 2021-08-25 Orders Doctor RAMIREZ 1.2.840.114 [id number] Univers 00:00:00 00:00:00 Only Unassigned, NOLAN 350.1.13.10 ity of [place] [facility] 4.2.7.2.686 Mendel as [phone] [address] 2021-08-10 2021-08-10 Outpatient Odalys PLATA [facility] [id number] Univers 13:30:00 14:07:36 WONDIFUL ity o f [facility] 2021-08-10 2021-08-10 Office [facility] 1.2.840.114 [id number] Univers 13:30:00 14:07:36 [facility] 350.1.13.10 ity [facility] 4.2.7.2.686 Mendel as ANTONY?BLEA [id number] [address] MEDICAL OFFICE BUILDING 2021-08-10 2021-08-10 Outpatient Odalys PLATA [facility] [id number] Univers 13:30:00 14:07:36 W[address] ity o f [facility] 2021-08-04 2021-08-04 Outpatient Odalys RIVAS [facility] [id number] Univers 10:45:00 10:45:00 VERONIQUE tripathi [facility] 2021-07-30 2021-07-30 Refrhea [facility] 1.2.840.114 [id number] Univers 00:00:00 00:00:00 Wondiful A HEALTH 350.1.13.10 ity of [place] 4.2.7.2.686 Mendel as PROFESSIO [phone] [place] michelet RODRIGEZ [address] OFFICE BUILDING ONE 2021-07-07 2021-07-07 Outpatient R ROB [facility] [id number] Univers 11:15:00 11:15:00 VERONIQUE tripathi [facility] 2021-07-03 2021-07-03 Outpatient R ROB [facility] [id number] Univers 11:15:00 11:15:00 VERONIQUE tripathi [facility] 2021-07-02 2021-07-02 Outpatient R BONI [facility] [id number] Univers 12:31:32 23:59:00 WONDIFUL ity o f [facility] 2021-07-02 2021-07-02 Hospital [facility] 1.2.597.956 [id number] Univers 12:31:32 23:59:00 Encounter Wondiful A [place] 350.1.13.10 ity of [place].2.7.2.[place] [phone] [facility] [address] 2021-06-30 2021-06-30 Case [facility] 1.2.840.114 [id number] Univers 00:00:00 00:00:00 Management Wondiful A HEALTH 350.1.13.10 ity of [place] 4.2.7.2.686 Mendel as ANTONY?BLEA [id number] [place] michelet BROWNING [address] MEDICAL OFFICE [facility] 2021-06-25 2021-06-25 Recreational Aide Lab, Ang - Db [facility] 1.2.840.1 14 [id number] Univers 11:15:00 11:30:00 Visit Gray Platamauriliojefe Dixon HEALTH 350.1.13.1 0 ity of [place] 4.2.7.2.686 Mendel as ANTONY?BLEA [id number] [place] michelet BROWNING [address] MEDICAL OFFICE BUILDING 2021-06-25 2021-06-25 Outpatient R BONI [facility] [id number] Univers 11:15:00 11:15:00 W[address]IF[address] ity o f [facility] 2021-06-25 2021-06-25 Office [facility] 1.2.840.114 [id number] Univers 09:00:00 09:12:32 Visit Wondiful A HEALTH 350.1.13.10 ity of [place] 4.2.7.2.686 Mendel as ANTONY?BLEA [id number] [address] OFFICE [facility] 2021-06-25 2021-06-25 [facility] [id number] Univers 09:00:00 09:00:[address] W[address] ity o f [facility] 2021-06-22 2021-06-22 Refill [facility]NEW [facility] 1.2.840.114 [id number] Univers 00:00:00 00:00:00 Wondiful A HEALTH 350.1.13.10 ity of [place] 4.2.7.2.686 Mendel as ANTONY?BLEA [id number] [address] OFFICE [facility] 2021-06-19 2021-06-19 Hitesh R[facility]NEW [facility] 1.2.840.114 [id number] Univers 00:00:00 00:00:00 Veronique A PRIMARY 350.1.13.10 it y of [place]2.[place] [id number] [address] 2021-06-19 2021-06-19 Hitesh RivasNEW [facility] 1.2.840.114 [id number] Univers 00:00:00 00:00:00 Veronique A PRIMARY 350.1.13.10 it y of [place]7.2.[place] [id number] [address] 2021-06-19 2021-06-19 Hitesh Rivas LALATONYA 1.2.840.114 [id number] Univers 00:00:00 00:00:00 Veronique A PRIMARY 350.1.13.10 it y of [place] 4[place]2.7.2.[place] [id number] [address] 2021-06-19 2021-06-19 Hitesh Pl[facility]NEW [facility] 1.2.840.114 [id number] Univers 00:00:00 00:00:00 Wondiful A HEALTH 350.1.13.10 ity of [place] 4.2.7.2.686 Mendel as PROFESSIO [id number] [address] ONE 2021-06-17 2021-06-17 Orders Doctor JAMES 1.2.840.114 [id number] Univers 00:00:00 00:00:00 Only Unassigned, NOLAN 350.1.13.10 ity [facility] [place] [facility] 4.2.7.2.686 Mendel as [id number] [address] 2021-05-24 2021-05-24 Hitesh Plata LALATONYA 1.2.840.114 [id number] Univers 00:00:00 00:00:00 Wondiful A HEALTH 350.1.13.10 ity of [place] 4.2.7.2.686 Mendel as PROFESSIO [phone] [address] ONE 2021-05-23 2021-05-23 [id number] [facility] 04:44:00 04:44:00 Sali 15 [facility] 2021-05-14 2021-05-14 Orders Doctor JAMES 1.2.840.114 [id number] Univers 00:00:00 00:00:00 Only Unassigned, NOLAN 350.1.13.10 ity of [place] [facility] 4.2.7.2.686 Mendel as [id number] [address] 2021-05-13 2021-05-13 Hitesh Plata LALATONYA 1.2.840.114 [id number] Univers 00:00:00 00:00:00 Wondiful A HEALTH 350.1.13.10 ity of [place] 4.2.7.2.686 Mendel as PROFESSIO [id number] [address] ONE 2021-05-11 2021-05-11 SYDNIE Resendiz 1.2.840.114 [id number] Univers 00:00:00 00:00:00 Veronique A PRIMARY 350.1.13.10 it y of [place].2.[place] [id number] [facility] [address] 2021-04-23 2021-04-23 [facility] 1.2.840.114 [id number] Univers 00:00:00 00:00:00 Wondiful A HEALTH 350.1.13.10 [facility] 4.2.7.2.686 Mendel as PROFESSIO [id number] [address] OFFICE BUILDING ONE 2021-04-23 2021-04-23 [facility] 1.2.840.114 [id number] [id number] Univers 00:00:00 00:00:00 Wondiful A HEALTH 350.1.13.10 ity of [place] 4.2.7.2.686 Mendel as PROFESSIO [id number] [address] OFFICE [facility] ONE 2021-04-21 2021-04-21 Orders Doctor JAMES 1.2.840.114 [id number] Univers 00:00:00 00:00:00 Only Unassigned, NOLAN 350.1.13.10 ity of [place] [facility] 4.2.7.2.686 Mendel as [id number] [address] 2021-04-14 2021-04-14 Telephone [facility]NEW [facility] 1.2.840.114 [id number] Univers 00:00:00 00:00:00 Wondiful A HEALTH 350.1.13.10 [facility]y [facility] 4.2.7.2.686 Mendel as ANTONY?BLEA [id number] [address] MEDICAL OFFICE BUILDING 2021-04-12 2021-04-12 Refill [facility] 1.2.840.114 [id number] Univers 00:00:00 00:00:00 Wondiful A HEALTH 350.1.13.10 ity of [place] 4.2.7.2.686 Mendel as PROFESSIO [id number] [address] OFFICE BUILDING ONE 2021-04-07 2021-04-07 Orders Doctor JAMES 1.2.840.114 [id number] Univers 00:00:00 00:00:00 Only Unassigned, NOLAN 350.1.13.10 ity of [place] [facility] 4.2.7.2.686 Mendel as [id number] [address] 2021-04-03 2021-04-03 Outpatient Odalys RIVAS [facility] [id number] Univers 09:15:00 09:15:00 VERONIQUE tripathi [facility] 2021-04-01 2021-04-01 Recreational Aide Pcp-Lab [facility] 1.2.840.114 [id number] Univers 10:02:58 10:17:58 Visit Veronique Rivas PRIMARY 350.1.13.10 ity of [place].2.[place] [id number] [address] 2021-04-01 2021-04-01 Outpatient Odalys RIVAS [facility] [id number] Univers 09:15:00 10:03:11 VERONIQUE tripathi [facility] 2021-04-01 2021-04-[address] [facility] 1.2.840.114 [id number] Univers 08:45:44 10:03:11 Visit Veronique Dixon PRIMARY 350.1.13.10 it y of [place] 4[place]7.2.[place] [id number] [address] 2021-04-01 2021-04-01 Outpatient Odalys RIVAS [facility] [id number] Univers 09:15:00 09:15:00 VERONIQUE tripathi [facility] 2021-03-24 2021-03-24 Outpatient Odalys RIVAS [facility] [id number] Univers 16:15:00 16:15:00 VERONIQUE tripathi [facility] 2021-03-05 2021-03-[address] [facility] 1.2.840.114 [id number] Univers 00:00:00 00:00:00 Veronique Dixon PRIMARY 350.1.13.10 it y of [place].2.[place] [id number] [facility] [address] [place] [address] 2021-02-15 2021-02-[address] [facility] 1.2.840.114 [id number] Univers 00:00:00 00:00:00 Veronique A PRIMARY 350.1.13.10 it y of [place]2.7.2.[place] [id number] Va dical [address] 2021-02-15 2021-02-[address] [facility] 1.2.840.114 [id number] Univers 00:00:00 00:00:00 PRIMARY 350.1.13.10 it y of [place] 4[place]2.7.2.[place] [id number] Va dicnv [address] 2021-02-11 2021-02-[address] 1.2.840.114 [id number] Univers 00:00:00 00:00:00 Veronique A PRIMARY 350.1.13.10 it y of [place] 4[place]2.[place].2.[place] [id number] [address] 2021-02-10 2021-02-10 Nurse Therapy, Adc Covid Infusion [facility] 1.2.840.114 [id number] Univers 15:02:37 16:02:37 Visit Pablo Dale 350.1.13.10 ity of [place] 4[place]2.[place].2.[place] Surgical [id number] [facility] [address] 2021-02-10 2021-02-10 Outpatient R LISA [facility] [id number] Univers 16:00:00 16:00:[address] [facility] 2021-02-10 2021-02-10 Orders Doctor JAMES 1.2.840.114 [id number] Univers 00:00:00 00:00:00 Only Unassigned, NOLAN 350.1.13.10 ity of [place] [facility] 4.2.7.2.686 Mendel as [id number] [place] [address] [address] 2021-02-07 2021-02-07 Urgent Provider, Gamal [facility] 1.2.840.114 [id number] Univers 20:07:41 20:39:22 Care Viet Shelly [facility] 350.1.13.10 ity of [place] 4.2.7.2.686 Mendel as Antony?Blea [id number] [place] michelet [place] 370 [facility] Office [facility] 2021-02-07 2021-02-07 Outpatient R VIET [facility] [id number] Univers 20:20:00 20:20:00 SHELLY [facility] 2021-01-29 2021-01-29 [facility] 1.2.840.114 [id number] Univers 00:00:00 00:00:00 Wondiful A Health 350.1.13.10 ity of [place] 4.2.7.2.686 Mendel as Professio [id number] Va dicjose r rodrigez 044 [facility] One 2021-01-28 2021-01-28 [facility] 1.2.840.114 [id number] Univers 16:17:05 23:59:00 Encounter Veronique A Health 350.1.13.10 ity of [place] 4.2.7.2.686 Mendel as Antony?Blea [phone] [place] michelet brow[place] 8[facility] 2021-01-28 2021-01-28 [facility] 1.2.840.114 [id number] Univers 16:16:47 16:16:47 Encounter Veronique A Health 350.1.13.10 ity of [place] 4.2.7.2.686 Mendel as Antony?Blea [id number] [place] michelet [place] 809 [facility] 2021-01-28 2021-01-28 Outpatient R PIPPA [facility] [id number] Univers 16:10:00 16:10:00 HEBERT tripathi [facility] 2021-01-28 2021-01-28 Imm/Inj Nurse, Adc Pob Immunization [facility] 1.2.840.114 [id number] Univers 15:25:37 15:25:52 Visit Hebert Das 350.1.13 .10 ity of [place] Profess[place] [id number] Va dicjose r rodrigez 421 [facility] 2021-01-18 2021-01-18 [facility] 1.2.840.114 [id number] Univers 00:00:00 00:00:00 Wondiful A Health 350.1.13.10 ity of [place] 4.2.7.2.686 Mendel as Professio [phone] Va dical nal [address] Office [facility] One 2021-01-16 2021-01-16 Orders Doctor JAMES 1.2.840.114 [id number] Univers 00:00:00 00:00:00 Only Unassigned, NOLAN 350.1.13.10 ity of [place] [facility] 4.2.7.2.686 Mendel as [id number] [address] 2020-12-26 2020-12-26 Outpatient R BONI [facility] [id number] Univers 11:30:00 11:30:[address] o f [facility] 2020-12-26 2020-12-26 Recreational Aide 2, Adc Lab [facility] 1.2.840.114 [id number] Univers 11:09:40 11:24:40 Visit Chirag Plata [place] 350.1.13. 10 ity of [place]2.[place].2.[place] Profess[place] [id number] Va dical nal 353 [facility] 2020-12-19 2020-12-[address] [facility] 1.2.840.114 [id number] Univers 13:37:44 14:09:24 Visit Veronique Dixon [facility] 350.1.13.10 it y of [place] 4[place]2.7.2.[place] [id number] [place] dical [address] 2020-12-19 2020-12-19 Outpatient R ROB [facility] [id number] Univers 13:15:00 13:15:[address] [facility] 2020-12-19 2020-12-19 Orders Doctor JAMES 1.2.840.114 [id number] Univers 00:00:00 00:00:00 Only Unassigned, NOLAN 350.1.13.10 ity [facility] [place] [facility] 4.2.7.2.686 Mendel as [id number] [address] 2020-12-03 2020-12-03 [facility] 1.2.840.114 [id number] Univers 00:00:00 00:00:00 Veronique A PRIMARY 350.1.13.10 it [place] [phone] [address] 2020-12-02 2020-12-[address] [facility] 1.2.840.114 [id number] Univers 00:00:00 00:00:00 Wondiful A Health 350.1.13.10 ity of [place] 4.2.7.2.686 Mendel as Professio [phone] [address] Office [facility] One 2020-11-24 2020-11-24 Refrhea [facility] 1.2.840.114 [id number] Univers 00:00:00 00:00:00 Wondiful A Health 350.1.13.10 ity of [place] 4.2.7.2.686 [place] as Professio [phone] [address] One 2020-11-05 2020-11-05 Orders Doctor JAMES 1.2.840.114 [id number] Univers 00:00:00 00:00:00 Only Unassigned, NOLAN 350.1.13.10 ity of [place] [facility] 4.2.7.2.686 Mendel as [phone] [address] 2020-10-31 2020-10-[address] [facility] 1.2.840.114 [id number] Univers 13:16:55 13:58:11 Visit Veronique A PRIMARY 350.1.13.10 it [place] [phone] [address] 2020-10-31 2020-10-31 Outpatient R ROB [facility] [id number] Univers 13:45:00 13:45:[address] [facility] 2020-10-27 2020-10-27 Outpatient R BONI [facility] [id number] Univers 09:00:00 09:00:00 WONDIFUL ity o f [facility] 2020-10-27 2020-10-27 Recreational Aide 2, Adc Lab [facility] 1.2.840.114 [id number] Univers 08:09:13 08:24:13 Visit Chirag Plata A [place] 350.1.13. 10 ity of [place].2.[place] [phone] [facility] 2020-10-03 2020-10-03 [facility] [id number] Univers 11:15:00 11:15:00 VERONIQUE tripathi [facility] 2020-10-03 2020-10-03 Office [facility] 1.2.840.114 [id number] Univers 10:37:29 11:08:52 Visit Veronique [place] PRIMARY 350.1.13.10 it [place] [phone] [facility] [address] 2020-09-30 2020-09-30 Outpatient Odalys RIVAS [facility] [id number] Univers 10:15:00 10:15:00 VERONIQUE tripathi [facility] 2020-09-17 2020-09-17 Case [facility] 1.2.840.114 [id number] Univers 00:00:00 00:00:00 Management Veraful A Health 350.1.13.10 ity of [place] 4.2.7.2.686 Mendel as Professio [phone] [facility] 0[address] [facility] One 2020-09-15 2020-09-[address] [facility] 1.2.840.114 [id number] Univers 00:00:00 00:00:00 Wondiful A Health 350.1.13.10 ity of [place] 4.2.7.2.686 Mendel as Professio [phone] [facility] 044 [facility] One 2020-09-09 2020-09-09 Recreational Aide Lab, [facility] Fam Pob I [facility] 1.2. 840.114 [id number] Univers 13:33:46 13:53:46 Visit Chirag Plata [facility] 350.1.13.1 0 ity of [place] 4.2.7.2.686 Mendel as Professio [phone] [address] Office [facility] One 2020-09-09 2020-09-[address] 1.2.840.114 [id number] Univers 12:37:50 13:43:21 Visit Wondiful A Health 350.1.13.10 ity of [place] 4.2.7.2.686 Mendel as Professio [phone] [address] Office [facility] One 2020-09-09 2020-09-09 [facility] [id number] Univers 13:00:00 13:00:00 WONDIFUL ity o f [facility] 2020-08-20 2020-08-[address] [facility] 1.2.840.114 [id number] Univers 00:00:00 00:00:00 PRIMARY 350.1.13.10 it [place] [phone] [address] 2020-08-05 2020-08-05 [facility] 1.2.840.114 [id number] Univers 00:00:00 00:00:00 Wondiful [facility] 350.1.13.10 ity of [place] 4.2.7.2.686 Mendel as Professio [phone] [address] One 2020-07-07 2020-07-07 [facility] 1.2.840.114 [id number] Univers 00:00:00 00:00:00 W[facility]iful [facility] 350.1.13.10 ity of [place] 4.2.7.2.686 Mendel as Professio [phone] [address] Office [facility] One 2020-06-19 2020-06-[address] [facility] 1.2.840.114 [id number] Univers 09:03:57 09:39:23 Visit PRIMARY 350.1.13.10 it y [place] [phone] [address] 2020-06-19 2020-06-19 Outpatient ROSENDO NOWAKRNA [facility] [id number] Univers 09:00:00 09:00:[address] [facility] 2020-06-19 2020-06-19 Outpatient ROSENDO NOWAKRNA [facility] [id number] Univers 09:00:00 09:00:00 ity [facility] 2020-06-17 2020-06-17 Outpatient R AYESHA [facility] [id number] Univers 16:20:00 16:20:00 YENY ity [facility] 2020-06-14 2020-06-14 [facility] 1.2.840.114 [id number] Univers 00:00:00 00:00:00 [facility] 350.1.13.10 ity of [place] 4.2.7.2.686 Mendel as Professio [phone] [address] Office [facility] One 2020-05-27 2020-05-[address] [facility] 1..840.114 [id number] Univers 00:00:00 00:00:00 PRIMARY 350.1.13.10 it y [place] [phone] [address] 2020-05-20 2020-05-20 Outpatient [facility] [id number] Univers 16:40:00 16:40:00 YENY [facility] 2020-04-22 2020-04-[address] [facility] 1.2.840.114 [id number] Univers 00:00:00 00:00:00 [facility] 350.1.13.10 ity of [place] 4.2.7.2.686 Mendel as Professio [phone] [address] One 2020-04-14 2020-04-[address] [facility] 1.2.840.114 [id number] Univers 00:00:00 00:00:00 [facility] 350.1.13.10 ity of [place] 4.2.7.2.686 Mendel as Professio [phone] [place] [address] Office [facility] One 2020-04-07 2020-04-[address] [facility] 1.2.840.114 [id number] Univers 11:56:04 14:09:30 Visit [facility] 350.1.13.10 ity of [place] 4.2.7.2.686 Mendel as Professio [phone] [address] Office [facility] One 2020-04-07 2020-04-07 Outpatient R BONI [facility] [id number] Univers 13:00:00 13:00:00 W[address]IF[address] ity o f [facility] 2020-03-27 2020-03-27 Telephone [facility] 1.2.840.114 [id number] Univers 00:00:00 00:00:00 [facility] 350.1.13.10 ity of [place] 4.2.7.2.686 Mendel as Professio [phone] [address] Office [facility] One 2020-03-27 2020-03-27 [facility] 1.2.840.114 [id number] Univers 00:00:00 00:00:00 [facility] 350.1.13.10 ity of [place] 4.2.7.2.686 Mendel as Professio [phone] [address] Office [facility] 2020-03-27 2020-03-27 Orders Doctor JAMES 1.2.840.114 [id number] Univers 00:00:00 00:00:00 Only Unassigned, NOLAN 350.1.13.10 ity of [place] [facility] 4.2.7.2.686 Mendel as [phone] [address] 2020-03-26 2020-03-26 Case [facility] 1.2.840.114 [id number] Univers 00:00:00 00:00:00 Management [facility] 350.1.13.10 ity of [place] 4.2.7.2.686 Mendel as Professio [phone] [address] Office Building One 2020-03-21 2020-03-[address] [facility] 1..840.114 [id number] Univers 00:00:00 00:00:00 Outreach [facility] 350.1.13.10 ity of [place] 4.2.7.2.686 Mendel as Professio [phone] [address] Office [facility] 2020-03-17 2020-03-17 Recreational Aide Lab, Adc Fam Pob I [facility] 1.. 840.114 [id number] Univers 14:35:35 14:55:35 Visit Chirag Plata [facility] 350.1.13.1 0 ity of [place] 4.2.7.2.686 Mendel as Professio [phone] [address] Office [facility] One 2020-03-17 2020-03-[address] [facility] 1..840.114 [id number] Univers 13:55:31 14:45:10 Visit [facility] 350.1.13.10 ity of [place] 4.2.7.2.686 Mendel as Professio [phone] [address] Office [facility] 2020-03-17 2020-03-17 Outpatient R BONI [facility] [id number] Univers 14:00:00 14:00:00 W[address] ity o f [facility] 2020-03-12 2020-03-[address] ..840.114 [id number] Univers 00:00:00 00:00:00 W[facility] 350.1.13.10 ity of [place] 4.2.7.2.686 Mendel as Professio [phone] [address] Office [facility] One 2020-03-07 2020-03-07 Outpatient R EMMY MIKE [facility] [id number] Univers 09:30:00 09:30:[address] [facility] 2020-03-03 2020-03-03 Office [facility] 1..840.114 [id number] Univers 11:21:06 12:06:44 Visit [facility] 350.1.13.10 ity of [place] 4.2.7.2.686 Mendel as Professio [phone] [address] Office [facility] One 2020-03-03 2020-03-03 Outpatient R BONI [facility] [id number] Univers 11:15:00 11:15:00 [address] ity o f [facility] 2020-03-03 2020-03-[address] [facility] 1.2.840.114 [id number] Univers 00:00:00 00:00:00 PRIMARY 350.1.13.10 it y of [place].2.[place] [phone] [address] 2020-02-28 2020-02-28 Telephone [facility] 1.2.840.114 [id number] Univers 00:00:00 00:00:00 [facility] 350.1.13.10 ity of [place] 4.2.7.2.686 Mendel as Professio [phone] [address] 2020-02-27 2020-02-27 Telephone [facility] 1.2.840.114 [id number] Univers 00:00:00 00:00:00 [facility] 350.1.13.10 ity of [place] 4.2.7.2.686 Mendel as Professio [phone] [address] 2020-02-18 2020-02-18 Refill [facility] 1.2.840.114 [id number] Univers 00:00:00 00:00:00 [facility] 350.1.13.10 ity of [place] 4.2.7.2.686 Mendel as Professio [phone] [address] 2020-01-31 2020-02-[address] [facility] 1.2.840.114 [id number] Univers 07:31:52 08:41:19 ne Visit PRIMARY 350.1.13.10 i ty of C[place]2.7.2.[place] [phone] [address] 2020-02-15 2020-02-15 Orders Doctor JAMES 1.2.840.114 [id number] Univers 00:00:00 00:00:00 Only Unassigned, NOLAN 350.1.13.10 ity of [place] [facility] 4.2.7.2.686 Mendel as [phone] [address] 2020-02-12 2020-02-[address] [facility] 1.2.840.114 [id number] Univers 00:00:00 00:00:00 PRIMARY 350.1.13.10 it y of [place]2.7.2.[place] [phone] [place] dical [address] 2020-02-11 2020-02-11 Recreational Aide 2, Adc Lab [facility] 1.2.840.114 [id number] Univers 13:57:45 14:12:45 Visit Emmy Mike 350.1.13.10 ity of [place].2.7.2.[place] [phone] [place] dic[place] nal [address] [facility] 2020-02-11 2020-02-11 Outpatient R EMMY MIKE [facility] [id number] Univers 13:45:00 13:45:[address] [facility] 2020-01-31 2020-01-31 Outpatient R EMMY MIKE [facility] [id number] Univers 11:00:00 11:00:[address] [facility] 2020-01-13 2020-01-[address] 1.2.840.114 [id number] Univers 00:00:00 00:00:00 Wondiful A Health 350.1.13.10 ity of [place] 4.2.7.2.686 Mendel as Professio [phone] [place] dical nal [address] Office Building One 2019-12-13 2019-12-13 Telephone Boni LALATONYA 1.2.840.114 [id number] Univers 00:00:00 00:00:00 Wondiful A [place] 350.1.13.10 ity of [place] 4.2.7.2.[place] [phone] [place] dical nal 044 [facility] 2019-12-13 2019-12-13 Orders Doctor RAMIREZ 1.2.840.114 [id number] Univers 00:00:00 00:00:00 Only Unassigned, NOLAN 350.1.13.10 ity of [place] [facility] 4.2.7.2.686 Mendel as [phone] [address] 2019-12-11 2019-12-11 Telephone Halma, [facility] 1.2.840.114 [id number] Univers 00:00:00 00:00:00 Wondiful A [place] 350.1.13.10 ity of [place].2.7.2.[place] [phone] [place] dical nal 044 [facility] 2019-12-10 2019-12-10 Telephone Halma, [facility] 1.2.840.114 [id number] Univers 00:00:00 00:00:00 Wondiful A [place] 350.1.13.10 ity of [place].2.7.2.[place] [phone] [place] dical [place] [address] [place] [address] 2019-12-07 2019-12-07 Telephone [facility] 1.2.840.114 [id number] Univers 00:00:00 00:00:00 Wondiful A [place] 350.1.13.10 ity of [place] 4.2.7.2.[place] [phone] [place] dical [place] [address] [place] [address] 2019-12-04 2019-12-04 Telephone [facility] 1.2.840.114 [id number] Univers 00:00:00 00:00:00 Wondiful A [place] 350.1.13.10 ity of [place] 4.2.7.2.[place] [phone] [place] dical [place]al [address] [place] [address] 2019-12-04 2019-12-04 Orders Doctor JAMES 1.2.840.114 [id number] Univers 00:00:00 00:00:00 Only Unassigned, NOLAN 350.1.13.10 ity of [place] [facility] 4.2.7.2.686 Mendel as [phone] [address] 2019-11-30 2019-11-30 Telephone [facility] 1.2.840.114 [id number] Univers 00:00:00 00:00:00 Wondiful A [place] 350.1.13.10 ity of [place] 4.2.7.2.[place] [phone] [place] dicnv nal 044 [facility] 2019-11-28 2019-11-[address] [facility] 1.2.840.114 [id number] Univers 00:00:00 00:00:00 PRIMARY 350.1.13.10 it y of C[place]2.7.2.[place] [phone] [facility] [address] 2019-11-27 2019-11-27 Telephone [facility] 1.2.840.114 [id number] Univers 00:00:00 00:00:00 Wondiful A [place] 350.1.13.10 ity of [place] 4.2.7.2.[place] [phone] [facility] nal 044 [facility] 2019-11-20 2019-11-20 Refill [facility]NEW [facility] 1.2.840.114 [id number] Univers 00:00:00 00:00:00 Kena PRIMARY 350.1.13.10 it y of C[place]2.7.2.[place] [phone] [address] 2019-11-20 2019-11-20 Orders Doctor JAMES 1.2.840.114 [id number] Univers 00:00:00 00:00:00 Only Unassigned, NOLAN 350.1.13.10 ity of [place] [facility] 4.2.7.2.686 Mendel as [phone] [facility] [address] 2019-11-16 2019-11-16 Telephone JAMES [place] 1.2.920.690 [id number] Univers 00:00:00 00:00:00 Rigo FRANCISCO 350.1.13.10 i ty of HOSPITAL 4.2.7.2.686 Mendel as [phone] [facility] [address] 2019-11-15 2019-11-15 Laboratory Lab, Adc Fam Pob I [place] 1.2. 840.114 [id number] Univers 06:50:46 07:10:46 Only Nadia Brizuela A Health 350.1.13.10 ity of [place] 4.2.7.2.686 Mendel as Professio [phone] [address] 2019-11-15 2019-11-15 Outpatient R GELACIO [facility] [id number] Univers 07:00:00 07:00:[address] [facility] 2019-11-12 2019-11-12 Office [facility] 1.2.840.114 [id number] Univers 14:36:55 15:05:59 Visit Wondiful A [place] 350.1.13.10 ity of [place] 4.2.7.2.[place] [phone] [address] 2019-11-12 2019-11-12 [facility] [id number] Univers 15:00:00 15:00:00 WONDIFUL ity o f [facility] 2019-11-05 2019-11-05 Telephone [facility] 1.2.840.114 [id number] Univers 00:00:00 00:00:00 Wondiful A [place] 350.1.13.10 ity of [place] 4.2.7.2.[place] [phone] [address] 2019-11-01 2019-11-01 Orders Doctor JAMES 1.2.840.114 [id number] Univers 00:00:00 00:00:00 Only Unassigned, NOLAN 350.1.13.10 ity of [place] [facility] 4.2.7.2.686 Mendel as [phone] [address] 2019-10-30 2019-10-30 Refill [facility] 1.2.840.114 [id number] Univers 00:00:00 00:00:00 Wondiful A Health 350.1.13.10 ity of [place] 4.2.7.2.686 Mendel as Professio [phone] [address] 2019-10-29 2019-10-29 Refrhea [facility] 1.2.840.114 [id number] Univers 00:00:00 00:00:00 Wondiful A Health 350.1.13.10 ity of [place] 4.2.7.2.686 Mendel as Professio [phone] [address] One 2019-10-09 2019-10-09 Outpatient R BONI [facility] [id number] Univers 09:30:00 09:30:00 W[address] ity o f [facility] 2019-10-09 2019-10-09 Telemedici [facility] 1.2.840.114 [id number] Univers 07:43:55 08:13:55 ne Visit Wondiful A [place] 350.1.13.10 ity of [place] 4.2.7.2.[place] [phone] [address] 2019-10-05 2019-10-05 Telephone [facility] 1.2.840.114 [id number] Univers 00:00:00 00:00:00 Wondiful A [place] 350.1.13.10 ity of [place] 4.2.7.2.[place] [phone] [address] 2019-10-04 2019-10-[address] 1.2.840.114 [id number] Univers 00:00:00 00:00:00 Wondiful A [place] 350.1.13.10 ity of [place] 4.2.7.2.[place] [phone] [address] 2019-09-27 2019-09-27 Orders Doctor JAMES 1.2.840.114 [id number] Univers 00:00:00 00:00:00 Only Unassigned, NOLAN 350.1.13.10 ity of [place] [facility] 4.2.7.2.686 Mendel as [phone] [address] 2019-08-17 2019-08-17 Outpatient R BONI [facility] [id number] Univers 13:00:00 13:00:[address] o [address] [facility] 2019-08-15 2019-08-15 Telephone [facility] 1.2.840.114 [id number] Univers 00:00:00 00:00:00 Wondiful A [place] 350.1.13.10 ity of [place].2.7.2.[place] [phone] [address] 2019-08-10 2019-08-10 Refill [facility] 1.2.840.114 [id number] Univers 00:00:00 00:00:00 Wondiful A Health 350.1.13.10 ity of [place] 4.2.7.2.686 Mendel as Professio [phone] [address] Office [facility] 2019-08-10 2019-08-10 Refill [facility] 1.2.840.114 [id number] Univers 00:00:00 00:00:00 Kena PRIMARY 350.1.13.10 it y of C[place] 4[place]2.7.2.[place] [phone] [address] 2019-08-09 2019-08-[address] [facility] 1.2.8 40.114 [id number] Univers 07:07:32 16:49:43 ne Visit Jah Quintanilla PRIMARY 350.1.13.1 0 ity of C[place] 4.2.7.2.[place] [phone] [address] 2019-08-09 2019-08-09 Outpatient R SOCORRO [facility] [id number] Univers 11:00:00 11:00:[address] [facility] 2019-08-09 2019-08-09 Telephone [facility] 1.2.840.114 [id number] Univers 00:00:00 00:00:00 Wondiful A Health 350.1.13.10 ity of [place] 4.2.7.2.686 Mendel as Professio [phone] [address] 2019-08-05 2019-08-05 Orders Doctor RAMIREZ 1..840.114 [id number] Univers 00:00:00 00:00:00 Only Unassigned, NOLAN 350.1.13.10 ity of [place] [facility] 4.2.7.2.686 Mendel as [phone] [address] 2019-07-27 2019-07-27 Hitesh [facility]NEW [facility] 1.2.840.114 [id number] Univers 00:00:00 00:00:00 Wondiful A Health 350.1.13.10 ity of [place] 4.2.7.2.686 Mendel as Professio [phone] [address] 2019-07-12 2019-07-12 Orders Doctor JAMES 1.2.840.114 [id number] Univers 00:00:00 00:00:00 Only Unassigned, NOLAN 350.1.13.10 ity of [place] [facility] 4.2.7.2.686 Mendel as [phone] [address] 2019-07-10 2019-07-10 Hitesh [facility]NEW [facility] 1.2.840.114 [id number] Univers 00:00:00 00:00:00 Wondiful A Health 350.1.13.10 ity of [place] 4.2.7.2.686 Mendel as Professio [phone] [address] 2019-07-04 2019-07-04 Hitesh [facility]NEW [facility] 1.2.840.114 [id number] Univers 00:00:00 00:00:00 Wondiful A Health 350.1.13.10 ity of [place] 4.2.7.2.686 Mendel as Professio [phone] [address] 2019-07-04 2019-07-04 Orders Doctor JAMES 1.2.840.114 [id number] Univers 00:00:00 00:00:00 Only Unassigned, NOLAN 350.1.13.10 ity of [place] [facility] 4.2.7.2.686 Mendel as [phone] [address] 2019-06-26 2019-06-26 Outpatient Washburn, W Karen [id number] [facility] 08:30:00 08:30:00 [facility] 2019-06-26 2019-06-26 [facility] [place] [id number] [id number] 08:30:00 08:30:00 Stacia [id number] [id number] 2019-06-25 2019-06-25 Orders Doctor JAMES 1.2.840.114 [id number] Univers 00:00:00 00:00:00 Only Unassigned, NOLAN 350.1.13.10 ity of [place] [facility] 4.2.7.2.686 Mendel as [phone] [address] 2019-06-22 2019-06-22 Telephone [facility] 1.2.840.114 [id number] Univers 00:00:00 00:00:00 Wondiful A Health 350.1.13.10 ity of [place] 4.2.7.2.686 Mendel as Professio [phone] [address] Office [facility] 2019-06-18 2019-06-[address] 1.2.840.114 [id number] [id number] Univers 15:00:14 16:11:16 Visit Wondiful A Health 350.1.13.10 ity of [place] 4.2.7.2.686 Mendel as Professio [phone] [address] Office [facility] 2019-06-13 2019-06-13 Telephone [facility] 1.2.840.114 [id number] Univers 00:00:00 00:00:00 Wondiful A Health 350.1.13.10 ity of [place] 4.2.7.2.686 Mendel as Professio [phone] [address] Office [facility] One 2019-06-13 2019-06-13 Telephone [facility] 1.2.840.114 [id number] Univers 00:00:00 00:00:00 Wondiful A Health 350.1.13.10 ity of [place] 4.2.7.2.686 Mendel as Professio [phone] [address] Office [facility] 2019-06-11 2019-06-[address] 1.2.840.114 [id number] Univers 00:00:00 00:00:00 Wondiful A Health 350.1.13.10 ity of [place] 4.2.7.2.686 Mendel as Professio [phone] [address] Office Building One 2019-06-11 2019-06-11 Telephone [facility] 1.2.840.114 [id number] Univers 00:00:00 00:00:00 Wondiful A Health 350.1.13.10 ity of [place] 4.2.7.2.686 Mendel as Professio [phone] [facility] [address] Office [facility] One 2019-06-11 2019-06-11 Orders Doctor JAMES 1.2.840.114 [id number] Univers 00:00:00 00:00:00 Only Unassigned, NOLAN 350.1.13.10 ity of [place] [facility] 4.2.7.2.686 Mendel as [phone] [facility] [address] 2019-03-09 2019-06-[address] [facility] 1.2.840. 114 [id number] Univers 10:43:52 12:15:59 Visit aJh Quintanilla PRIMARY 350.1.13.10 ity of [place]7.2.[place] [phone] [facility] [address] 2019-05-29 2019-05-29 Outpatient R [facility] [id number] Univers 16:20:17 23:59:00 WONDIFUL ity o f [facility] 2019-05-29 2019-05-29 Hospital [facility] 1.2.748.447 [id number] Univers 16:15:00 23:59:00 Encounter Wondiful A [place] 350.1.13.10 ity [place] [phone] [facility] [address] 2019-05-29 2019-05-29 Outpatient R [facility] [id number] Univers 11:00:00 11:54:50 [address] o f [facility] 2019-05-29 2019-05-29 Office [facility] 1.2.840.114 [id number] Univers 10:42:51 11:54:50 Visit Wondiful A Health 350.1.13.10 ity of [place] 4.2.7.2.686 Mendel as Professio [phone] [address] One 2019-05-11 2019-05-11 Orders Doctor JAMES 1.2.840.114 [id number] Univers 00:00:00 00:00:00 Only Unassigned, NOLAN 350.1.13.10 ity of [place] [facility] 4.2.7.2.686 Mendel as [phone] [address] 2019-03-09 2019-03-09 Outpatient R [facility] [id number] Univers 11:00:00 11:12:[address] [facility] 2019-01-30 2019-01-[address] [facility] 1.2.840.114 [id number] Univers 00:00:00 00:00:00 Kena PRIMARY 350.1.13.10 it y [place] [phone] [address] 2019-01-17 2019-01-17 [facility] 1.2.840.114 [id number] Univers 00:00:00 00:00:00 [facility] 350.1.13.10 ity of [place] 4.2.7.2.686 Mendel as Professio [phone] [address] 2019-01-10 2019-01-[address] 1.2.840.114 [id number] Univers 00:00:00 00:00:00 [facility] 350.1.13.10 ity of [place] 4.2.7.2.686 Mendel as Professio [phone] [address] One 2019-01-08 2019-01-08 Recreational Aide Amalia, Adc Sleep Lab [facility] 1.2 .840.114 [id number] Univers 13:31:54 13:46:54 Visit Kaela Llanos [place] 350.1.13. 10 ity of [place] [phone] [facility] [address] 2019-01-08 2019-01-08 Telephone [facility] 1.2.840.114 [id number] Univers 00:00:00 00:00:00 [facility] 350.1.13.10 ity of [place] 4.2.7.2.686 Mendel as Professio [phone] [address] Office [facility] One 2019-01-08 2019-01-08 Refrhea [facility] 1.2.840.114 [id number] Univers 00:00:00 00:00:00 [facility] 350.1.13.10 ity of [place] 4.2.7.2.686 Mendel as Professio [phone] [address] Office [facility] One 2019-01-08 2019-01-08 Orders Doctor JAMES 1.2.840.114 [id number] Univers 00:00:00 00:00:00 Only Unassigned, NOLAN 350.1.13.10 ity of [place] [facility] 4.2.7.2.686 Mendel as [phone] [facility] [address] 2019-01-05 2019-01-05 [facility]re[facility] 1.2.840.114 [id number] Univers 00:00:00 00:00:00 [facility] 350.1.13.10 ity of [place] 4.2.7.2.686 Mendel as Professio [phone] [address] Office [facility] One 2019-01-03 2019-01-03 Telephone [facility] 1.2.840.114 [id number] Univers 00:00:00 00:00:00 [facility] 350.1.13.10 ity of [place] 4.2.7.2.686 Mendel as Professio [phone] [address] Office [facility] One 2019-01-01 2019-01-01 Office [facility] 1.2.840.114 [id number] Univers 15:29:10 17:45:26 Visit [facility] 350.1.13.10 ity of [place] 4.2.7.2.686 Mendel as Professio [phone] [address] One 2018-12-27 2018-12-27 Telephone [facility] 1.2.840.114 [id number] Univers 00:00:00 00:00:00 [facility] 350.1.13.10 ity of [place] 4.2.7.2.686 Mendel as Professio [phone] [address] One 2018-12-26 2018-12-26 [facility] [facility] 1.2.840.114 [id number] Univers 00:00:00 00:00:00 [facility] 350.1.13.10 it y of [place]2.[place] [phone] [address] 2018-12-26 2018-12-26 [facility]phone [facility] 1.2.840.114 [id number] Univers 00:00:00 00:00:00 [facility] 350.1.13.10 ity of [place] 4.2.7.2.686 [place]el as Professio [phone] [address] One 2018-12-22 2018-12-22 Orders Doctor JAMES 1.2.840.114 [id number] Univers 00:00:00 00:00:00 Only Unassigned, NOLAN 350.1.13.10 ity of [facility] 4.2.7.2.686 Mendel as [phone] [address] 2018-12-18 2018-12-18 Orders Doctor JAMES 1.2.840.114 [id number] Univers 00:00:00 00:00:00 Only Unassigned, NOLAN 350.1.13.10 ity of [facility] 4.2.7.2.686 Mendel as [phone] [address] 2018-12-15 2018-12-15 Orders Doctor JAMES 1.2.840.114 [id number] Univers 00:00:00 00:00:00 Only Unassigned, NOLAN 350.1.13.10 ity of [facility] 4.2.7.2.686 Mendel as [phone] [address] 2018-12-14 2018-12-[address] [facility] 1.2.840.114 [id number] Univers 00:00:00 00:00:00 [facility] 350.1.13.10 ity of [place] 4.2.7.2.686 Mendel as Professio [phone] [address] One 2018-12-13 2018-12-13 [facility]phone [facility] 1.2.840.114 [id number] Univers 00:00:00 00:00:00 [facility] 350.1.13.10 ity of [place] 4.2.7.2.686 [place] as Professio [phone] [address] One 2018-12-12 2018-12-12 Orders Doctor JAMES 1.2.840.114 [id number] Univers 00:00:00 00:00:00 Only Unassigned, NOLAN 350.1.13.10 [facility]y of [facility] 4.2.7.2.686 Mendel as [phone] [address] 2018-12-11 2018-12-11 [facility] 1.2.840.114 [id number] Univers 00:00:00 00:00:00 [facility] 350.1.13.10 ity of [place] 4.2.7.2.686 Mendel as Professio [phone] [address] One 2018-11-28 2018-12-10 Inpatient 3 TATIANNA Bernstein JOANNA [id number] [facility] 17:55:00 08:45:00 [facility] Zaida denis Results Test Description Test Time Test Comments Results Result Comments Source BASIC METABOLIC PANEL 2021-05-23 09:01:00 Test Item Value Reference Range Interpretation Comme nts SODIUM (test code = NA) 138 MMOL/L 137-145 N POTASSIUM (test code = K) 4.1 MMOL/L 3.5-5.1 N CHLORIDE (test code = CL) 104 MMOL/L 98-107 N CARBON DIOXIDE (test code = CO2) 31 MMOL/L 22-30 H GLUCOSE (test code = GLU) 87 MG/DL 74-106 N BLOOD UREA NITROGEN (test code = 12 MG/DL 9-20 N BUN) GLOMERULAR FILTRATION RATE (test > 60 Reporting units: ml/min/1.73 code = GFR) m2 (Modified MD RD Formula)Referen ce Range: > or = 60 ml/min/1.7 3 m2 CREATININE (test code = CREAT) 0.70 MG/DL 0.66-1.25 N CALCIUM (test code = CA) 9.1 MG/DL 8.4-10.2 N LIPID PROFILE (CORONARY RISK)2021-05-23 09:01:00 Test Item Value Reference Range Interpretation Comments TRIGLYCERIDES (test 67 MG/DL 150-199 L TRIGLYCE RIDES code = TRIG) REFERENCE RANGE:Normal: < 150 mg/dLBorderline High: 150-199 mg/dLHi gh: 200-499 mg/dLVe ry High: >=500 mg/ dL CHOLESTEROL (test code 119 MG/DL <200 = CHOL) HDL CHOLESTEROL (test 40 MG/DL 40-59 N code = HDL) LIPOPROTEIN LDL (test 57 MG/DL 0-99 N OPTIM AL.........<100 code = LDL) mg/dLNEAR OPTIMAL/ABOVE OPTIMAL........ .100-12 9 mg/dL BORDERL INE HIGH.........13 0-159 mg/dL HIGH.........16 0-189 mg/dL VERY HIGH.........>/ = 190 mg/dL [id number] 09:01:00 Test Item Value Reference Range Interpretation Comments MAGNESIUM (test code = MAG) 2.0 MG/DL 1.6-2.3 N PROTHROMBIN [id number] 08:44:00 Test Item Value Reference Range Interpretation Comments PROTHROMBIN TIME 14.0 SECONDS 9.5-12.7 H PATIENT (test code = PTP) INTERNATIONAL NORMAL 1.3 0.86-1.14 H The INR is to be RATIO (test code = used only for INR) monitoring oral anticoagulantth erap y. INDICATION I NR VALUE ---- ---- ---- -------1. Prophylaxis, de ep venous thrombos is, including high risk surgery. 2.0 - 3.0 2. Prophylaxis, deep venous thrombosis, hip surgery, treatm ent for deep venous thrombosis or pulmonary prevention of systemic emboli sm in patients wit h valvular heart disease, atrial fibrillation, tissue heart va lve, or acute myocar dial infarction. 2.0 - 3.0 3. Bakery Assistant al prosthesis hear t valves, recurre nt systemic emboli sm. 3.0 - 4.5 PTT [id number] 08:44:00 Test Item Value Reference Range Interpretation Comments PTT ACTIVATED (test code = APTT) 31.4 SECONDS 25.1-36.5 N CBC W/AUTO [id number] 08:34:00 Test Item Value Reference Range Interpretation Comments WHITE BLOOD CELL (test code = 9.0 K/MM3 3.8-9.8 N WBC) RED BLOOD CELL (test code = 4.46 M/MM3 3.95-5.67 N RBC) HEMOGLOBIN (test code = HGB) 13.2 G/DL 12.4-16.7 N HEMATOCRIT (test code = HCT) 41.0 % 35.9-49.5 N MEAN CELL VOLUME (test code = 92 fL 81.7-96.1 N MCV) MEAN CELL HGB (test code = MCH) 29.6 pg 27.6-33.2 N MEAN CELL HGB CONCETRATION 32.2 % 32.9-35.5 L (test code = MCHC) RED CELL DISTRIBUTION WIDTH 14.8 % 12.1-15.2 N (test code = RDW) PLATELET COUNT (test code = 225 K/MM3 129-368 N PLT) MEAN PLATELET VOLUME (test code 9.2 fl 7.4-10.4 N = MPV) NEUTROPHIL % (test code = NT%) 57.5 % 43-75 N IMMATURE GRANULOCYTE % (test 0.6 % 0.0-2.0 N code = IG%) LYMPHOCYTE % (test code = LY%) 20.0 % 14-44 N MONOCYTE % (test code = MO%) 12.7 % 4-13 N EOSINOPHIL % (test code = EO%) 8.3 % 0-6 H BASOPHIL % (test code = BA%) 0.9 % 0-2 N NUCLEATED RBC % (test code = 0.0 % 0-1.0 N NRBC%) NEUTROPHIL # (test code = NT#) 5.19 K/mm3 2.0-7.6 N IMMATURE GRANULOCYTE # (test 0.05 x10 3/uL 0-0.03 H code = IG#) LYMPHOCYTE # (test code = LY#) 1.80 K/mm3 1.0-3.8 N MONOCYTE # (test code = MO#) 1.15 K/mm3 0.1-0.8 H EOSINOPHIL # (test code = EO#) 0.75 K/mm3 0.0-0.2 H BASOPHIL # (test code = BA#) 0.08 K/mm3 0.0-0.2 N NUCLEATED RBC # (test code = 0.00 K/mm3 0.0-0.1 N NRBC#) COVID 19 Asymptomatic IH [id number] 05:48:00 Test Item Value Reference Range Interpretation Comments COVID 19 NEGATIVE Negative "Negative resul ts from Asymptomatic IH AG patients with symptom (test code = onset beyondfiv e days, COVNONPUIAG) should be treat ed as presumptive, andconfirmation with a molecular assay , if necessary forpa tient management may be performed. Nega tive results do notr ule out COVID-19 and sh ould not be used as the sole basisfor treatm ent or patient managem ent decisions, includinginfect ion control decisio ns. Negative result s should beconsidered in the context of a pa tients recent exposure s,history, and the presenc e of clinical signs and symptomsconsist ent with COVID-19.This t est detects both vi able andnon-viable S ARS-CoV and SARS CoV-2. Test performance dep endson the amount of virus (antigen) in the sample." Spec Comments: PRE-OP Notes Date/Time Note Provider Source 2021-05-23 09:46:00-00:00 [id number] [facility] [address] [place] [address] PATIENT NAME: FRANCISCO RAMIREZ ADMIT DATE: 05/23/21 ACCOUNT NO: [id number] ROOM NO: AGE: 65 REPORT TYPE: CARDIAC CATHETERIZATION REPORT SEX: M ADMITTING PHYSICIAN: ATTENDING PHYSICIAN:Rhoda Mata MD PROCEDURE DATE: 05/23/2021 CARDIOLOGY PROCEDURE BUSINESS CENTER MANAGER: Rhoda Mata MD INDICATION FOR THE PROCEDURE: Dyspnea, coronary artery disease, stents, cardiomyopathy, and ischemia. TITLE OF THE PROCEDURE: Left heart catheterizati on. ESTIMATED BLOOD LOSS: Minimal. COMPLICATIONS: None. CONTRAST: 70 mL. ANESTHESIA: Conscious sedation with Versed and f entanyl. A 1% lidocaine for local anesthesia. FINAL DIAGNOSES: Three-vessel coronary artery di sease, patent LAD and RCA stents. The recommendation is medical therapy. PROCEDURE IN DETAIL: After informed consent, the patient was brought to the cardiac catheterization lab in a stable fasting nonsedated state. He was prepped and draped in the usual sterile fashion. After conscious sedation, 1% lidocaine was administered to the right common f emoral artery area for local anesthesia. A 6-Sammarinese sheath was placed in the right common femoral artery using standard techniques and fluoroscop y. After heparinization, left coronary angiogram showed calcified arteries. The LAD donna nt is patent with 50% restenosis in the proximal segment. Ther e is a stent in the diagonal, which is occluded and gets collaterals. The rest of the L AD appeared to be free of angiographic disease. The circumflex is 65% disease proximally. I am unsure if there is a stent there or not, but it is a very small vessel and all the branches are small. Right coronary angiogram eri wed the calcified arteries. There are two stents that are patent with 0% res idual. There is 30% proximal plaquing and there is an early PDA, which is kno wn to have been occluded from years ago. Left ventricular angiogram showed eje ction fraction of 50% to 55%, left ventricular end-diastolic pressure of 26 and no wall motion abnormalities or aortic valve gradient. The right groin was se aled using Angio-Seal. There were no complications. The patient kyle ated the procedure well. The patient's ischemia on the nuclear stress test is most like ly coming from the occluded PATIENT NAME: FRANCISCO RAMIREZ 15 diagonal, which appears to be a large vessel, gi slava the patient has already known chronic early PDA occlusion from before an d the circumflex is diffusely diseased. Given that the patient has chronic atr ial fibrillation, on anticoagulation already, the benefits are less t squires the risks of doing any further intervention on him, so he should be treated medically only at the time being. This was discussed in detail with the pat ient. The patient was transferred to the [facility] a sue for observation to be discharged later on today on medical therapy and risk factor modification. Dictated By: Rhoda Mata MD WT: CATH:SARAY/AZUL/VALENTIN Conf#: [id number]/DID#: [id number] Authenticated by Rhoda Mata MD On 05/16 06:57:51 AM at 0657 PATIENT NAME: FRANCISCO RAMIREZ 15 2021-05-23 08:54:00-00:00 [phone] [place] [address] PATIENT NAME: FRANCISCO RAMIREZ ADMIT DATE: 05/23/21 ACCOUNT NO: [id number] ROOM NO: AGE: 65 REPORT TYPE: ELECTROCARDIOGRAM SEX: M ADMITTING PHYSICIAN: ATTENDING PHYSICIAN:Rhoda Mata MD Order: [id number] Test Reason : CAD Test Date/Time Stamp: TueMay 23 2021 08:54:11 Blood Pressure : / mmHG Vent. Rate : 070 BPM Atrial Rate : 067 BPM P-R Int : 000 ms QRS Dur : 130 ms QT Int : 440 ms P-R-T Axes : 000 240 033 degree s QTc Int : 475 ms Atrial fibrillation with pre mature ventricular or aberrantly conducted complexes Indeterminate axis Right bundle branch block Abnormal ECG No previous ECGs available Confirmed by RHODA MATA ([id number]) on 05/23/2021 9 :56:08 AM Referred By: Self Referred Confirmed by:RHODA CRENSHAW at 0956 PATIENT NAME: FRANCISCO RAMIREZ 15 2021-05-23 08:54:00-00:00 [id number] [place] [address] PATIENT NAME: FRANCISCO RAMIREZ ADMIT DATE: 05/23/21 ACCOUNT NO: [id number] ROOM NO: AGE: 65 REPORT TYPE: ELECTROCARDIOGRAM SEX: M ADMITTING PHYSICIAN: ATTENDING PHYSICIAN:Rhoda Mata MD Order: [id number] Test Reason : CAD Test Date/Time Stamp: TueMay 23 2021 08:54:11 Blood Pressure : / mmHG Vent. Rate : 070 BPM Atrial Rate : 067 BPM P-R Int : 000 ms QRS Dur : 130 ms QT Int : 440 ms P-R-T Axes : 000 240 033 degree s QTc Int : 475 ms Atrial fibrillation with pre mature ventricular or aberrantly conducted complexes Indeterminate axis Right bundle branch block Abnormal ECG No previous ECGs available Confirmed by RHODA MATA ([id number]) on 05/23/2021 1 2:12:19 PM Referred By: Self Referred Confirmed by:RHODA BILLINGS at 1212 PATIENT NAME: FRANCISCO RAMIREZ 15 2021-05-22 07:02:00-00:00 [id number] [place] [address] PATIENT NAME: FRANCISCO RAMIREZ ADMIT DATE: ACCOUNT NO: [id number] ROOM NO: AGE: 65 REPORT TYPE: HISTORY AND PHYSICAL SEX: M ADMITTING PHYSICIAN: ATTENDING PHYSICIAN:Rhoda Mata MD PATIENT NAME: FRANCISCO RAMIREZ ADMIT DATE:05/23/2021 ADMISSION DATE: 05/23/2021 BUSINESS CENTER MANAGER: Rhoda Mata MD REASON FOR ADMISSION: Dyspne a, ischemia, known coronary artery disease, history of dilated ischemic cardiomyopathy for cardiac c atheterization and possible revascularization. HISTORY OF PRESENT ILLNESS: Mr. Ramirez is a 65-ye ar-old patient with extensive cardiac history with several interventions proce dures dating back to 2008 and 2010. He has RCA stents, 4.5 x 15 in 2008, he had an LAD stent in 2010 with 4 x 28. He has had also circumflex stents at [facility] nt. His last cardiac catheterization intervention was on 12/16/2010 where he had a 3-vessel disease. The patient has been followed up regularly over the years and his ejection fraction has been in the low 50s with mild-to-mo derate mitral regurgitation. His last nuclear stress test showed ejection fra ction of 45% with severe anterior ischemia, which was changed from previo us evaluation of 2019. He has also chronic atrial fibrilla tion with sick sinus syndrome and frequent pauses up to 3.1 seconds. The patient has no known carotid disease. He denies any recent angina, just worsening dyspn ea and worsening ischemia on a nuclear stress test. Given his history and findin gs, he is here for cardiac catheterization to assess for possible further revascu larization. There is no history of congestive heart failure, TIAs, or strokes. PAST MEDICAL HISTORY: Remarkable for the above h istory of previous myocardial infarction, chronic atrial fibrillation, sick si nus syndrome, history of ventricular tachycardia, arminda quent PVCs, hypertension, hyperlipidemia, diabetes, osteoarthritis, chronic renal insufficiency, mor bid obesity, hypothyroidism, vitamin B12 deficiency, and allergies. PAST SURGICAL HISTORY: He has had both knees rep laced, multiple stents in the past, and cataract surgeries. ALLERGIES: NO KNOWN DRUG ALLERGIES. MEDICATIONS: He takes clopidogrel 75 mg daily, X arelto 20 mg daily, nitroglycerin if needed, dig oxin 0.125 every other day, he takes prednisone 5 mg daily, Tradjenta 5 mg daily, Synthroid 300 mcg daily, metformin 500 mg b.i.d. is on hold, tamsulosin 0.4 erlin y, Dexilant 60 mg daily, spironolactone 50 mg daily, bumetanide 1 mg b.i.d., metoprolol 100 mg b.i.d. , atorvastatin 80 mg daily. PATIENT NAME: FRANCISCO RAMIREZ 15 SOCIAL HISTORY: There is no history of smoking, alcohol, or street drug use. FAMILY HISTORY: Positive for atherosclerotic car diovascular disease. REVIEW OF SYSTEMS: Remarkable for dry mouth, hyp othyroidism symptoms, arthritis, and anxiety. No acute GI or sympto ms. No TIAs or strokes. PHYSICAL EXAMINATION: GENERAL: Reveals a pleasant middle-aged male, in no acute distress. VITAL SIGNS: Blood pressure 124/86, pulse 62 and irregular, respiratory rate 18 and unlabored, and temperature afebrile. HEENT: Head is atraumatic and normocephalic. Eye s and ENT examination within normal for age. NECK: Supple. No jugular venous distention, brui ts, or lymphadenopathy. Normal upstroke. LUNGS: Clear and resonant. HEART: Irregular rate and rhythm with II/ syst olic ejection murmur at the left lower sternal border. No gallops. The heart is enlarged. ABDOMEN: Soft. No tenderness, no organomegaly, n o masses or bruits. Abdomen is obese. EXTREMITIES: Trace edema. Stasis dermatitis alvarez ges. A 2+ distal pulses. No cyanosis or clubbing. NEUROLOGIC: Alert and oriented x3. The examinati on appears to be nonfocal. LABORATORY DATA: Pending. Noninvasive cardiovasc ular workup enclosed. IMPRESSION: This is a 65-year-old patient with k nown coronary artery disease, history of ischemic cardiomyopathy, multiple donna nts, chronic atrial fibrillation, sick sinus syn drome, and a history of arrhythmias and ventricular tachycardia who comes in with worsening dyspnea and significant ischemia that appears to be in the LAD area. His last interven tion was in 2010. He has stents in all 3 arteries. He is here for cardiac catheterization to assess for possible further revascularization. The recommendation is to pro ceed with the above-mentioned procedures. The risks and benefits of the planned procedures were discussed in detail with the patient and available family members and he is w illing to proceed. Rest as per orders. Dictated By: Rhoda Mata MD WT: HP:Z.CELIA/AZUL/VALENTIN Conf#: [id number]/DID#: [id number] Authenticated and Edited by Rhoda Mata MD On 05/22/21 2:53:42 PM at 0255 PATIENT NAME: FRANCISCO RAMIREZ 14
[2022-11-20 02:06] LABS: Absolute Lymphocytes (CBC) 1.5 K/uL (0.7-4.9); Hematocrit 44.3 % (39.6-49.0); Lymphocytes % 11.5 % (15.3-44.8); MCV 98.9 fL (80-100); MPV 8.2 fL (7.6-11.3); RBC Red Blood Cell Count 4.48 M/uL (4.33-5.43)
[2022-11-20] MEDS ORDERED: MORPHINE 4 MG/ML SYR ONE (02:16)
[2022-11-20] MEDS ORDERED: ONDANSETRON 4 MG/2 ML VIAL ONE (02:16)
[2022-11-20 02:34] LABS: Bilirubin Total 1.4 mg/dL (0.2-1.0); Protein, Total 7.3 g/dL (6.4-8.2)
[2022-11-20 02:36] LABS: Potassium 5.1 mEq/L (3.5-5.1)
[2022-11-20 02:45] LABS: Specific Gravity 1.026 (1.005-1.030); Urine Bacteria <20 /HPF (<20); Urine Bilirubin 1+ (Negative); Urine Blood Negative (Negative); Urine Clarity Extremely Turbid (Clear); Urine Color Yellow (Yellow); Urine Crystals Unidentified Few /HPF (None Seen); Urine Glucose NEGATIVE (Negative); Urine Mucus Slight /HPF (None Seen); Urine Protein 1+ (Negative); Urine Sperm Present (None Seen); Urine Urobilinogen Normal (Normal)
[2022-11-20 02:52] LABS: Platelet Estimate ADEQ; White Blood Cell Scan DIFF (OK)
[2022-11-20 02:53] LABS: Blood Morphology Comment NOT SEEN (NOT SEEN)
--- NOTE | 2022-11-20 08:28 | EDPHYS ---
Physician Documentation [facility] Name: Dioni Pennington Age: 67 yrs Sex: Male : 1955 Arrival Date: 11/20/2022 Time: 01:16 Bed 19 Private MD: TAHMINA Physician Clifford Serrano HPI: 11/20 02:09 This 67 yrs old Male presents to ER via Wheelchair with complaints of rt Abdominal Pain, Nausea/Vomiting/Diarrhea, Shortness Of Breath. 02:09 Patient presents to the ED with nausea, vomiting, diarrhea, generalized abdominal pain, rt aching in nature and nonradiating. The patient does report a history of gallbladder issues and states that this pain started after eating a peanut butter sandwich. The patient reports a mild shortness of breath which she attributes to the pain. Denies chest pain. Denies other acute complaints at this time. Symptoms are moderate in severity, no other aggravating or alleviating factors.. Historical: - Allergies: 01:33 No Known Allergies; kl - Home Meds: 01:38 potassium chloride 20 mEq oral tablet, extended release [Active]; atorvastatin 80 mg kl oral tablet every day at bedtime [Active]; metoprolol tartrate 100 mg Oral tablet 2 times per day [Active]; Synthroid 300 mcg Oral tablet daily [Active]; metformin 500 mg Oral Tablet, Extended Release 24 hr 2 times per day [Active]; prednisone 5 mg Oral tablet daily [Active]; hydroxychloroquine 200 mg oral tablet 2 times per day [Active]; Xarelto 20 mg oral tablet daily [Active]; tamsulosin 0.4 mg oral capsule daily [Active]; Tradjenta 5 mg oral tablet daily [Active]; clopidogrel 75 mg oral tablet daily [Active]; bumetanide 2 mg Oral tablet daily [Active]; - PMHx: 01:33 Arthritis; Atrial Fib; CAD; Hyperlipidemia; Hypertension; lymphedema; kl 01:46 NIDDM; kl - PSHx: 01:33 knee; Stented artery; kl - Immunization history:: Adult Immunizations up to date. - Social history:: Smoking status: Patient denies any tobacco usage or history of. - Family history:: not pertinent. ROS: 02:09 Constitutional: Negative for fever, chills, and weight loss, Cardiovascular: Negative rt for chest pain, palpitations, and edema, MS/Extremity: Negative for injury and deformity, Skin: Negative for injury, rash, and discoloration, Neuro: Negative for headache, weakness, numbness, tingling, and seizure, Psych: Negative for depression, anxiety, suicide ideation, homicidal ideation, and hallucinations. 02:09 Respiratory: Positive for shortness of breath, Negative for cough. 02:09 Abdomen/GI: Positive for abdominal pain, nausea, vomiting, and diarrhea. Exam: 02:09 Constitutional: This is a well developed, well nourished patient who is awake, alert, rt and in no acute distress. Head/Face: Normocephalic, atraumatic. Chest/axilla: Normal chest wall appearance and motion. Nontender with no deformity. No lesions are appreciated. Cardiovascular: Regular rate and rhythm with a normal S1 and S2. No gallops, murmurs, or rubs. Normal PMI, no JVD. No pulse deficits. Respiratory: Lungs have equal breath sounds bilaterally, clear to auscultation and percussion. No rales, rhonchi or wheezes noted. No increased work of breathing, no retractions or nasal flaring. Skin: Warm, dry with normal turgor. Normal color with no rashes, no lesions, and no evidence of cellulitis. MS/ Extremity: Pulses equal, no cyanosis. Neurovascular intact. Full, normal range of motion. Neuro: Awake and alert, GCS 15, oriented to person, place, time, and situation. Cranial nerves II-XII grossly intact. Motor strength 5/5 in all extremities. Sensory grossly intact. Cerebellar exam normal. Normal gait. Psych: Awake, alert, with orientation to person, place and time. Behavior, mood, and affect are within normal limits. 02:09 ECG was reviewed by the Attending Physician. 02:09 Respiratory: Mild tenderness and distention diffusely without rebound, guarding. Vital Signs: 01:28 BP 90 / 52 RA; Pulse 62; Resp 20; Temp 98.6(O); Pulse Ox 96% ; kl 01:28 BP 88 / 58 LA; kl 01:33 BP 121 / 67; Pulse 73; Resp 20 S; Pulse Ox 93% on 2 lpm NC; ha1 02:00 BP 113 / 75; Pulse 73; Resp 21; Pulse Ox 99% ; vc1 03:00 BP 111 / 20; Pulse 85; Resp 17 S; Pulse Ox 92% on 2 lpm NC; ha1 03:50 BP 120 / 73; Pulse 93; Resp 22 S; Pulse Ox 93% on 2 lpm NC; ha1 04:50 BP 109 / 74; Pulse 85; Resp 22 S; Pulse Ox 92% on 2 lpm NC; ha1 05:50 BP 99 / 57; Pulse 95; Resp 23 S; Pulse Ox 91% on 2 lpm NC; ha1 06:00 BP 119 / 93; Pulse 98; Resp 23 S; Pulse Ox 91% on 2 lpm NC; ha1 07:00 BP 105 / 54; Pulse 96; Resp 32; Pulse Ox 91% on 2 lpm NC; db 08:00 BP 121 / 80; Pulse 89; Resp 34; Pulse Ox 93% on 2 lpm NC; db 08:50 Weight 163.29 kg; Height 5 ft. 11 in. ; db 09:00 BP 126 / 85; Pulse 82; Resp 24; Pulse Ox 95% on 2 lpm NC; db 10:00 BP 115 / 85; Pulse 90; Resp 24; Pulse Ox 94% on 2 lpm NC; db 08:50 Body Mass Index 50.21 (163.29 kg, 180.34 cm) db Bonita Coma Score: 08:30 Eye Response: spontaneous(4). Motor Response: obeys commands(6). Verbal Response: elizabeth oriented(5). Total: 15. MDM: 01:39 Patient medically screened. rt 08:31 Differential diagnosis: Nonspecific abd pain, gastritis, cholecystitis, pancreatitis, elizabeth appendicitis, diverticulitis, viral gastroenteritis, gastroenteritis. Data reviewed: vital signs, nurses notes, EMS record, lab test result(s), EKG, radiologic studies, CT scan, plain films, ultrasound. Consideration of Admission/Observation Escalation of care including admission/observation considered. I considered the following discharge prescriptions or medication management in the emergency department Medications were administered in the Emergency Department. See MAR. Test considered but Not performed: Ultrasound no echo, 2D. Care significantly affected by the following chronic conditions: Diabetes, Hypertension, Congestive Heart Failure, Obesity, Liver Disease. Counseling: I had a detailed discussion with the patient and/or guardian regarding: the historical points, exam findings, and any diagnostic results supporting the discharge/admit diagnosis, lab results, radiology results, the need for further work-up and treatment in the hospital. 11/20 01:54 Order name: CBC with Diff; Complete Time: 02:58 rt 11/20 01:54 Order name: CMP; Complete Time: 02:46 rt 11/20 01:54 Order name: Lipase; Complete Time: 02:46 rt 11/20 01:54 Order name: Urinalysis w/ reflexes; Complete Time: 02:46 rt 11/20 01:54 Order name: Troponin High Sensitivity; Complete Time: 02:46 rt 11/20 02:09 Order name: CBC Smear Scan; Complete Time: 02:58 EDMS 11/20 02:55 Order name: Manual Differential; Complete Time: 02:58 EDMS 11/20 03:45 Order name: BNP; Complete Time: 04:04 rt 11/20 04:05 Order name: Troponin High Sensitivity; Complete Time: 04:39 la1 11/20 08:30 Order name: PT-INR; Complete Time: 09:22 elizabeth 11/20 08:30 Order name: AMMONIA; Complete Time: 09:22 elizabeth 11/20 02:55 Order name: Abdomen EDMS 08 03:45 Order name: US Abdomen Limited rt 11/20 03:45 Order name: Chest Single View XRAY rt 11/20 01:54 Order name: EKG; Complete Time: 01:55 rt 11/20 01:54 Order name: IV Saline Lock; Complete Time: 02:13 rt 11/20 01:54 Order name: Labs collected and sent; Complete Time: 02:13 rt 11/20 01:54 Order name: EKG - Nurse/Tech; Complete Time: 02:13 rt 11/20 08:37 Order name: IV Saline Lock - Large Bore; Complete Time: 08:42 [facility] EC:09 Rate is 74 beats/min. Rhythm is irregularly irregular, A fib with No ectopy. QRS Bronson rt is Normal. Left axis deviation noted. QRS interval is normal. QT interval is normal. No Q waves. T waves are Normal. No ST changes noted. Administered Medications: 02:05 Drug: Ondansetron IVP 4 mg Route: IVP; Site: right antecubital; ha1 02:30 Follow up: Response: No adverse reaction; Nausea is decreased ha1 02:08 Drug: morphine IVP or IV 4 mg Route: IVP; Infused Over: 4 mins; Site: right antecubital;ha1 02:30 Follow up: Response: No adverse reaction; Pain is decreased; RASS: Alert and Calm (0) ha1 08:45 Drug: Furosemide IVP 40 mg Route: IVP; Site: right antecubital; db 08:50 Drug: Piperacillin-Tazobactam IVPB 3.375 grams Route: IVPB; Infused Over: 60 mins; db Site: right antecubital; 09:48 Follow up: Response: No adverse reaction; IV Status: Completed infusion; IV Intake: db 100ml 08:55 Drug: Famotidine IVP 20 mg Route: IVP; Site: right antecubital; db 09:48 Follow up: Response: No adverse reaction db 10:37 Drug: Acetaminophen PO 1000 mg Route: PO; db Disposition Summary: 11/20/22 08:28 Transfer Ordered Transfer Location: [facility] elizabeth Reason: Higher level of care elizabeth Condition: Fair elizabeth Problem: new elizabeth Symptoms: are unchanged eliazbeth Accepting Physician: to [facility](11/20/22 11:24) hb Diagnosis - Morbid (severe) obesity due to excess calories elizabeth - Unspecified combined systolic (congestive) and diastolic (congestive) heart failure elizabeth - Epigastric abdominal tenderness elizabeth - Acute kidney failure, unspecified elizabeth - Other cholelithiasis without obstruction elizabeth - Unspecified cirrhosis of liver elizabeth - Chronic atrial fibrillation elizabeth - longterm (current) use of anticoagulants elizabeth - Elevated white blood cell count elizabeth - Abnormal levels of other serum enzymes - ELEVATED TROPONIN elizabeth - Bandemia elizabeth Forms: - Medication Reconciliation Form elizabeth - SBAR form elizabeth Signatures: Dispatcher [employer] EDCA Bere Osborne RN RN kl Anderson, Corey, MD MD cha Attema, Lee, [employer] Madelin Choi RN RN hb Suni Collier RN RN ha1 Zahra Tapia RN RN Irineo Arreola MD MD rt Corrections: (The following items were deleted from the chart) 02:55 01:54 Abdomen Pelvis W Con+CT.RAD.BRZ ordered. EDCA EDMS 08:28 08:28 to [facility] elizabeth elizabeth 08:41 08:28 to [facility] elizabeth elizabeth 09:25 08:41 to [facility] elizabeth elizabeth 11:24 09:25 to [facility] elizabeth hb
--- NOTE | 2022-11-20 08:28 | ER ---
Nurse's Notes [facility] Name: Dioni Pennington Age: 67 yrs Sex: Male : 1955 Arrival Date: 11/20/2022 Time: 01:16 Bed 19 Private MD: Diagnosis: Morbid (severe) obesity due to excess calories;Unspecified combined systolic (congestive) and diastolic (congestive) heart failure;Epigastric abdominal tenderness;Acute kidney failure, unspecified;Other cholelithiasis without obstruction;Unspecified cirrhosis of liver;Chronic atrial fibrillation;custodial (current) use of anticoagulants;Elevated white blood cell count;Abnormal levels of other serum enzymes-ELEVATED TROPONIN;Bandemia Presentation: 11/20 01:28 Chief complaint: Patient states: abdominal pain vomiting x 3 episodes diarrhea x 3 kl episodes after peanut butter and jelly sandwich pt reports previous gallbladder issues. Coronavirus screen: Vaccine status: Patient reports receiving the 2nd dose of the covid vaccine. Ebola Screen: Patient negative for fever greater than or equal to 101.5 degrees Fahrenheit, and additional compatible Ebola Virus Disease symptoms. 01:28 Method Of Arrival: Wheelchair kl 01:34 Acuity: GHANSHYAM 3 ha1 01:34 Initial Sepsis Screen: Does the patient meet any 2 criteria? No. Patient's initial ha1 sepsis screen is negative. Does the patient have a suspected source of infection? No. Patient's initial sepsis screen is negative. Risk Assessment: Do you want to hurt yourself or someone else? Patient reports no desire to harm self or others. Onset of symptoms was November 17, 2022. Triage Assessment: 01:34 General: Appears uncomfortable, Behavior is calm, cooperative. Pain: Complains of pain kl in right upper quadrant and right lower quadrant Pain currently is 9 out of 10 on a pain scale. GI: Reports lower abdominal pain, upper abdominal pain, diarrhea, nausea. Historical: - Allergies: 01:33 No Known Allergies; kl - Home Meds: 01:38 potassium chloride 20 mEq oral tablet, extended release [Active]; atorvastatin 80 mg kl oral tablet every day at bedtime [Active]; metoprolol tartrate 100 mg Oral tablet 2 times per day [Active]; Synthroid 300 mcg Oral tablet daily [Active]; metformin 500 mg Oral Tablet, Extended Release 24 hr 2 times per day [Active]; prednisone 5 mg Oral tablet daily [Active]; hydroxychloroquine 200 mg oral tablet 2 times per day [Active]; Xarelto 20 mg oral tablet daily [Active]; tamsulosin 0.4 mg oral capsule daily [Active]; Tradjenta 5 mg oral tablet daily [Active]; clopidogrel 75 mg oral tablet daily [Active]; bumetanide 2 mg Oral tablet daily [Active]; - PMHx: 01:33 Arthritis; Atrial Fib; CAD; Hyperlipidemia; Hypertension; lymphedema; kl 01:46 NIDDM; kl - PSHx: 01:33 knee; Stented artery; kl - Immunization history:: Adult Immunizations up to date. - Social history:: Smoking status: Patient denies any tobacco usage or history of. - Family history:: not pertinent. Screenin:34 [facility] ED Fall Risk Assessment (Adult) History of falling in the last 3 months, ha1 including since admission No falls in past 3 months (0 pts) Confusion or Disorientation No (0 pts) Intoxicated or Sedated No (0 pts) Impaired Gait No (0 pts) Mobility Assist Device Used No (0 pt) Altered Elimination No (0 pt) Score/Fall Risk Level 0 - 2 = Low Risk Oriented to surroundings, Maintained a safe environment, Educated pt \T\ family on fall prevention, incl call for assistance when getting out of bed, Hourly rounding (assess needs \T\ fall precautionary measures) done. Abuse screen: Denies threats or abuse. Denies injuries from another. Nutritional screening: No deficits noted. Tuberculosis screening: No symptoms or risk factors identified. Assessment: 01:34 General: Appears uncomfortable, Behavior is calm, cooperative. Pain: Complains of pain ha1 in abdomen and right upper quadrant. Neuro: Level of Consciousness is awake, alert, obeys commands, Oriented to person, place, time, situation. Cardiovascular: Patient's skin is warm and dry. Respiratory: Reports shortness of breath at rest Airway is patent Respiratory effort is even, unlabored, Respiratory pattern is regular, symmetrical. GI: Abdomen is round distended, Bowel sounds present X 4 quads. Abd is soft and non tender X 4 quads. Reports diarrhea, nausea, vomiting. : No signs and/or symptoms were reported regarding the genitourinary system. EENT: No signs and/or symptoms were reported regarding the EENT system. Derm: Skin is moist, Skin is normal. Musculoskeletal: Circulation, motion, and sensation intact. Range of motion: intact in all extremities. 02:30 Reassessment: Patient and/or family updated on plan of care and expected duration. Pain ha1 level reassessed. Patient is alert, oriented x 3, equal unlabored respirations, skin warm/dry/pink. Patient states symptoms have improved. 02:53 Reassessment: No changes from previously documented assessment. Patient and/or family vc1 updated on plan of care and expected duration. Pain level reassessed. Patient is alert, oriented x 3, equal unlabored respirations, skin warm/dry/pink. 03:50 Reassessment: Patient and/or family updated on plan of care and expected duration. Pain ha1 level reassessed. Patient is alert, oriented x 3, equal unlabored respirations, skin warm/dry/pink. Patient states symptoms have improved. 04:50 Reassessment: Patient and/or family updated on plan of care and expected duration. Pain ha1 level reassessed. Patient is alert, oriented x 3, equal unlabored respirations, skin warm/dry/pink. 05:50 Reassessment: Patient and/or family updated on plan of care and expected duration. Pain ha1 level reassessed. Patient is alert, oriented x 3, equal unlabored respirations, skin warm/dry/pink. 08:56 Reassessment: Patient appears in no apparent distress at this time. Patient and/or db family updated on plan of care and expected duration. Pain level reassessed. Patient is alert, oriented x 3, equal unlabored respirations, skin warm/dry/pink. 09:30 Reassessment: Patient appears in no apparent distress at this time. Patient and/or db family updated on plan of care and expected duration. Pain level reassessed. Patient is alert, oriented x 3, equal unlabored respirations, skin warm/dry/pink. General: Appears in no apparent distress. uncomfortable, Behavior is calm, cooperative. 09:46 Reassessment: report given to Anne-Marie at [facility]. db 09:56 Reassessment: Patient appears in no apparent distress at this time. consent for db transport signed and on chart. 11:06 Reassessment: Patient and/or family updated on plan of care and expected duration. Pain db level reassessed. Patient is alert, oriented x 3, equal unlabored respirations, skin warm/dry/pink. EMS is here for patient transport to [facility]. Vital Signs: 01:28 BP 90 / 52 RA; Pulse 62; Resp 20; Temp 98.6(O); Pulse Ox 96% ; kl 01:28 BP 88 / 58 LA; kl 01:33 BP 121 / 67; Pulse 73; Resp 20 S; Pulse Ox 93% on 2 lpm NC; ha1 02:00 BP 113 / 75; Pulse 73; Resp 21; Pulse Ox 99% ; vc1 03:00 BP 111 / 20; Pulse 85; Resp 17 S; Pulse Ox 92% on 2 lpm NC; ha1 03:50 BP 120 / 73; Pulse 93; Resp 22 S; Pulse Ox 93% on 2 lpm NC; ha1 04:50 BP 109 / 74; Pulse 85; Resp 22 S; Pulse Ox 92% on 2 lpm NC; ha1 05:50 BP 99 / 57; Pulse 95; Resp 23 S; Pulse Ox 91% on 2 lpm NC; ha1 06:00 BP 119 / 93; Pulse 98; Resp 23 S; Pulse Ox 91% on 2 lpm NC; ha1 07:00 BP 105 / 54; Pulse 96; Resp 32; Pulse Ox 91% on 2 lpm NC; db 08:00 BP 121 / 80; Pulse 89; Resp 34; Pulse Ox 93% on 2 lpm NC; db 08:50 Weight 163.29 kg; Height 5 ft. 11 in. ; db 09:00 BP 126 / 85; Pulse 82; Resp 24; Pulse Ox 95% on 2 lpm NC; db 10:00 BP 115 / 85; Pulse 90; Resp 24; Pulse Ox 94% on 2 lpm NC; db 08:50 Body Mass Index 50.21 (163.29 kg, 180.34 cm) db Bonita Coma Score: 08:30 Eye Response: spontaneous(4). Motor Response: obeys commands(6). Verbal Response: elizabeth oriented(5). Total: 15. ED Course: 01:19 Patient arrived in ED. ja2 01:25 Irineo Osei MD is Attending Physician. rt 01:34 Suni Collier RN is Primary Nurse. ha1 01:34 Arm band placed on right wrist. ha1 01:34 Patient has correct armband on for positive identification. Placed in gown. Bed in low ha1 position. Call light in reach. Side rails up X 1. 01:45 Inserted saline lock: 20 gauge in right antecubital area, using aseptic technique. ha1 Blood collected. 02:13 CBC with Diff Sent. ha1 02:13 CMP Sent. ha1 02:13 Lipase Sent. ha1 02:14 CBC Smear Scan Sent. ha1 02:14 Troponin High Sensitivity Sent. ha1 03:05 Abdomen In Process Unspecified. EDMS 03:14 Triage completed. ha1 04:36 Chest Single View XRAY In Process Unspecified. EDMS 05:37 US Abdomen Limited In Process Unspecified. EDMS 07:09 Attending Physician role handed off by Irineo Osei MD [facility] 07:09 Clifford Serrano MD is Attending Physician. [facility] 08:[address] Serrano with Sam Arora from the [facility] transfer center at the request of the patient. 09:13 Sam from [facility] called to let us know they do have beds but are still waiting for the diamond driller helper doctors to call back. 09:[address] Yost the hospitalist diamond driller helper for [facility] with Dr. Serrano for patient transfer consultation. 09:28 administrative approval given by Sam Brady/ patient has been accepted to [facility] 10b 1028/ Dr. Del Yost has accepted the patient in transfer/ report to be called to [phone]. 09:56 No provider procedures requiring assistance completed. Patient transferred, IV remains db in place. 09:57 Client placed on continuous cardiac and pulse oximetry monitoring. NIBP monitoring db applied. Administered Medications: 02:05 Drug: Ondansetron IVP 4 mg Route: IVP; Site: right antecubital; ha1 02:30 Follow up: Response: No adverse reaction; Nausea is decreased ha1 02:08 Drug: morphine IVP or IV 4 mg Route: IVP; Infused Over: 4 mins; Site: right antecubital;ha1 02:30 Follow up: Response: No adverse reaction; Pain is decreased; RASS: Alert and Calm (0) ha1 08:45 Drug: Furosemide IVP 40 mg Route: IVP; Site: right antecubital; db 08:50 Drug: Piperacillin-Tazobactam IVPB 3.375 grams Route: IVPB; Infused Over: 60 mins; db Site: right antecubital; 09:48 Follow up: Response: No adverse reaction; IV Status: Completed infusion; IV Intake: db 100ml 08:55 Drug: Famotidine IVP 20 mg Route: IVP; Site: right antecubital; db 09:48 Follow up: Response: No adverse reaction db 10:37 Drug: Acetaminophen PO 1000 mg Route: PO; db Medication: 11:06 VIS not applicable for this client. db Intake: 09:48 IV: 100ml; Total: 100ml. db Outcome: 08:28 ER care complete, transfer ordered by . elizabeth 11:06 Transferred by ground EMS [facility]. Transfer form completed. 11:06 Condition: stable 11:06 Instructed on the need for transfer. 11:24 Patient left the ED. Signatures: Dispatcher [employer] EDBere Jorge RN RN kl Anderson, Corey, MD MD cha Baxter, Heather, RN RN Ileana Angelo Jessica ja2 Calcote, Vanessa, RN RN vc1 Suni Collier RN RN ha1 Zahra Tapia RN RN db [place], Ryan, MD MD rt
[2022-11-20] MEDS ORDERED: NA CHLORIDE 0.9% 100 ML ONE (08:48)
[2022-11-20] MEDS ORDERED: FUROSEMIDE 40 MG/4 ML VIAL ONE (08:48)
[2022-11-20] MEDS ORDERED: FAMOTIDINE 20 MG/2 ML VIAL IV ONE (08:48)
[2022-11-20] MEDS ORDERED: PIPERACIL/TAZO 3.375 GM VIAL IV ONE (08:49)
[2022-11-20 09:02] LABS: Protime INR 1.6
[2022-11-20] MEDS ORDERED: ACETAMINOPHEN 500 MG TAB ONE (10:44)
[2022-11-20 12:03] VITALS: TEMP 98.6
[2022-11-20 12:23] VITALS: BP 115/85; O2SAT 94
--- NOTE | 2022-11-20 23:02 | RAD REPORT ---
EXAM DESCRIPTION: US - Abdomen Exam Limited - 11/20/2022 5:36 am CLINICAL HISTORY: Gallstone COMPARISON: None. TECHNIQUE: US ABDOMEN LIMITED 11/20/2022 3:45 AM CDT FINDINGS: Gallbladder is normally distended without wall thickening or pericholecystic fluid. There are no gallstones. IMPRESSION: Normal appearance of the gallbladder. Electronically signed by: Cristóbal Koenig MD 11/20/2022 6:53 AM CDT Due to temporary technical issues with the PACS/Fluency reporting system, reports are being signed by the in house radiologists without review as a courtesy to insure prompt reporting. The interpreting radiologist is fully responsible for the content of the report.
--- NOTE | 2022-11-20 23:03 | RAD REPORT ---
EXAM DESCRIPTION: RAD - Chest Single View - 11/20/2022 4:35 am CLINICAL HISTORY: CHEST PAIN COMPARISON: None. TECHNIQUE: XR CHEST 1 VIEW 11/20/2022 3:45 AM CDT FINDINGS: The heart is enlarged. Lungs are clear without consolidation, atelectasis, mass or edema. There is no pleural effusion. There is no pneumothorax. There are no acute osseous findings. IMPRESSION: Clear lungs. Electronically signed by: Cristóbal Koenig MD 11/20/2022 6:11 AM CDT Due to temporary technical issues with the PACS/Fluency reporting system, reports are being signed by the in house radiologists without review as a courtesy to insure prompt reporting. The interpreting radiologist is fully responsible for the content of the report.
--- NOTE | 2022-11-20 23:04 | RAD REPORT ---
EXAM DESCRIPTION: CT - Abdomen Pelvis Wo Contrast - 11/20/2022 6:23 am CLINICAL HISTORY: 67 years Male right sided abd pain, vomiting, diarrhea COMPARISON: None TECHNIQUE: CT of the abdomen and pelvis with intravenous contrast. All CT scans at this facility use dose modulation, iterative reconstruction, and/or weight based dosi ng when appropriate to reduce radiation dose to as low as reasonably achievable. FINDINGS: Lower thorax: Bibasilar scarring/atelectasis. Visualized heart is mildly enlarged. Abdomen: Stomach: Within normal limits Liver: No focal lesions. Hepatic steatosis. Subtle nodular contour. No intrahepatic ductal distention . Gallbladder: Cholelithiasis. Pancreas: Within normal limits Spleen: Within normal limits Right kidney: No hydronephrosis. No focal lesion. Left kidney: No hydronephrosis. No focal lesion. Adrenal glands: Within normal limits Vascular structures: Atherosclerosis of the abdominal aorta and major branches. Nodes: No lymphadenopathy by size criteria Pelvis: Small bowel: No significant distention. Appendix: Within normal limits Colon: No distention or acute pericolonic edema. Colonic diverticulosis. Peritoneum: No free intraperitoneal fluid or air. Bones: No acute bone findings. Bladder: Under distended, limiting evaluation. Reproductive organs: No acute findings. IMPRESSION: 1. No acute abdominopelvic findings. 2. Hepatic steatosis with subtle nodular contour, can be seen in setting of cirrhosis. 3. Cholelithiasis. 4. Colonic diverticulosis without diverticulitis. Electronically signed by: Sveta Mccallum MD 11/20/2022 3:29 AM CDT Due to temporary technical issues with the PACS/Fluency reporting system, reports are being signed by the in house radiologists without review as a courtesy to insure prompt reporting. The interpreting radiologist is fully responsible for the content of the report.
--- NOTE | 2022-11-22 17:17 | EKG ---
Test Date: 2022-11-20 Test Time: 02:05:44 Optoelectronic Technician: CLEO MEASUREMENT RESULTS: Intervals: Rate: 69 [place]: QRSD: 108 QT: 400 QTc: 428 [place]: P: FL: QRS: 3 T: 64 INTERPRETIVE STATEMENTS: Atrial fibrillation T wave abnormality, consider lateral ischemia or digitalis effect Abnormal ECG Compared to ECG 11/20/2022 02:04:38 T-wave abnormality now present Possible ischemia now present Left-axis deviation no longer present Electronically Signed On 11-22-22 17:13:53 CDT by Jamey Rueda
--- NOTE | 2022-11-22 17:17 | EKG ---
Test Date: 2022-11-20 Test Time: 02:04:38 [place] Drill Operator: CLEO MEASUREMENT RESULTS: Intervals: Rate: 74 [place]: QRSD: 108 QT: 402 QTc: 446 [place]: P: DC: QRS: -34 T: 78 INTERPRETIVE STATEMENTS: Atrial fibrillation Left axis deviation Abnormal ECG No previous ECG available for comparison Electronically Signed On 11-22-22 17:13:58 CDT by Jamey Rueda
== END 2022-11-20 11:24 | disposition short-term general hospital (02) ==
LOC: ER 01:16
DX: I50.40 Unspecified combined systolic (congestive) and diastolic (congestive) heart failure (principal); N17.9 Acute kidney failure, unspecified; R10.816 Epigastric abdominal tenderness; K80.80 Other cholelithiasis without obstruction; K74.60 Unspecified cirrhosis of liver; I48.11 Longstanding persistent atrial fibrillation; Z79.01 Long term (current) use of anticoagulants; D72.829 Elevated white blood cell count, unspecified; R77.8 Other specified abnormalities of plasma proteins; D72.825 Bandemia; E66.01 Morbid (severe) obesity due to excess calories
CPT/HCPCS: 96365; 93005 ×2; 85025; 81001; 36415; 82140; 85610; 84484 ×2; 83690; 80053; 83880; 74176; 71045; 76705; 96375; 99285; J1940; J2543; J2405